=== PATIENT | female | born 1960 | race Caucasian/White ===

== ENCOUNTER 2024-04-06 01:35 | Emergency (ER) | payer OTHER, MEDICAID, SELFPAY ==
[2024-04-06 01:36] VITALS: BP 133/66; PULSE 95; RESP 18; TEMP 36.8; O2SAT 98; BMI 19.0
--- NOTE | 2024-04-06 01:58 | XR_ITS ---
Examination: Ultrasound soft tissue right axilla Exam date and time: April 06, 2024 0245 hours INDICATIONS: Palpable mass in the right axilla with redness swelling and pain beginning 3 months ago TECHNIQUE AND FINDINGS: High-resolution grayscale sonographic images right axilla Solid mass with surrounding edema in the right axilla 4.4 x 4.9 x 4.9 cm IMPRESSION: Large solid mass in the right axilla, differential would include enlarged abnormal lymph node versus abscess, clinical correlation advised
--- NOTE | 2024-04-06 02:01 | PD.EDRME ---
Rapid Medical Screening Exam RME Arrival date/time: 04/06/24 01:35 63 year old female present to ED for c/o of right armpit abscess/mass, worsen I have greeted and performed a focused initial assessment of this patient. A comprehensive ED assessment and evaluation of the patient, analysis of all test results, and completion of the medical decision making process will be conducted by additional ED providers. Chief Complaint: Skin/Abscess/Foreign Body Time Seen by Provider: 04/06/24 01:53 Vital signs: Vital Signs Temperature 98.2 F 04/06/24 01:36 Pulse Rate 95 04/06/24 01:36 Respiratory Rate 18 04/06/24 01:36 Blood Pressure 133/66 H 04/06/24 01:36 Pulse Oximetry (%) 98 04/06/24 01:36 Oxygen Delivery Method Room Air 04/06/24 01:36
[2024-04-06 02:46] LABS: Basophils % (Auto) 0 % (0-2.5); Eosinophils # (Auto) 0.2 Thou/mm3 (0.0-0.5); Eosinophils % (Auto) 2 % (0-10); Hematocrit 32.2 % (36.0-46.0); Hemoglobin 10.3 g/dL (12.0-16.0); Immature Granulocytes % (Auto) 0 % (0-0); Immature Granulocytes Auto 0.03 Thou/mm3 (0.00-0.00); Lymphocytes % (Auto) 12 % (10-50); Mean Corpuscular Hemoglobin 27.8 pg (25.0-35.0); Mean Corpuscular Volume 87 fL (80-100); Monocytes % (Auto) 12 % (0-12); Neutrophils # (Auto) 6.1 Thou/mm3 (1.8-7.7); Neutrophils % (Auto) 73 % (37-80); Nucleated Red Blood Cell % 0 /100 WBC (0); Platelet Count 295 Thou/mm3 (140-440); Red Blood Count 3.71 Miln/mm3 (4.00-5.20); White Blood Count 8.4 Thou/mm3 (3.6-11.0)
[2024-04-06 03:00] LABS: INR 1.1 (0.9-1.3); Prothrombin Time 12.4 Seconds (9.0-12.2)
[2024-04-06 03:04] LABS: Alanine Aminotransferase 114 U/L (10-49); Albumin, Serum 3.6 gm/dL (3.4-4.8); Albumin/Globulin Ratio 0.7 (1.2-2.2); Alkaline Phosphatase 95 U/L (46-116); Anion Gap 5 (7-16); Aspartate Amino Transferase 172 U/L (0-34); BUN/Creatinine Ratio 21 Ratio (12-20); Bilirubin,Total 0.6 mg/dL (0.3-1.2); Blood Urea Nitrogen 15 mg/dL (9-23); Calcium 9.1 mg/dL (8.3-10.6); Calcium (Corrected) 9.4 mg/dL (8.5-10.1); Carbon Dioxide 32.3 mMol/L (20.0-31.0); Chloride 97 mMol/L (98-107); Creatinine (Component) 0.7 mg/dL (0.6-1.3); Estimated Creatinine Clearance 71.3 mL/min (>60); Globulin 5.2 gm/dL (2.3-3.5); Glucose 108 mg/dL (74-106); Osmolality,Calculated 270 (275-295); Potassium 3.5 mMol/L (3.4-5.1); Sodium 134 mMol/L (136-145); Total Protein 8.8 gm/dL (5.7-8.2); eGFR > 60 See Note
--- NOTE | 2024-04-06 04:06 | PRELIM_ITS ---
Soft tissues of the right axilla ultrasound. April 06, 2024 at 0245 hours Clinical history: Right axilla mass/abscess. No prior study is available for comparison. Findings:There is a large complex hy poechoic mass, measuring 4.9 x 4.4 x 4.9 cm at the site of swelling/area of redness. There is no vas cularity around the mass. There is mild subcutaneous edema at the site of swelling. Impression:Large complex hypoechoic mass in the right axilla as described which may represent an abscess versus less likely necrotic lymph node. Recommend further evaluation as clinically indicated. Report Electronica lly Signed By: Ck Lee 04/06/2024 4:06:05 AM [EST]
[2024-04-06 06:23] VITALS: PULSE 81; RESP 18; TEMP 36.7; O2SAT 97
--- NOTE | 2024-04-06 07:01 | EDNOTE_ITS ---
ED Skin Abcess FB-RME/HPI General Chief complaint: Skin/Abscess/Foreign Body Stated complaint: ABCCESS IN RIGHT ARMPIT Time Seen by Provider: 04/06/24 01:53 Arrival date/time: 04/06/24 01:35 63-year-old female presents to the emergency department complaints of swelling to the right axilla patient reports she has had this ongoing for the last couple of weeks worse for the last 1 day patient reports no fever nausea or vomiting patient does report pain to the site Limitations: no limitations RME / HPI RME / HPI narrative: 04/06/24 01:35 63 year old female present to ED for c/o of right armpit abscess/mass, worsen I have greeted and performed a focused initial assessment of this patient. A comprehensive ED assessment and evaluation of the patient, analysis of all test results, and completion of the medical decision making process will be conducted by additional ED providers. Related Data Home Medications ?Medication ?Instructions ?Recorded ?Confirmed meloxicam 7.5 mg tablet 7.5 mg PO HS #0 tabs 09/20/16 11/24/18 baclofen 5 mg tablet 5 mg PO BID 11/21/18 11/24/18 Previous Rx's ?Medication ?Instructions ?Recorded hydrocodone 5 mg-acetaminophen 325 1 tab PO Q4H #10 tabs 11/24/18 mg tablet ([place]) clindamycin HCl 150 mg capsule 450 mg (3 x 150 mg) PO TID 7 days 04/06/24 #63 caps hydrocodone 5 mg-acetaminophen 325 1 tab PO BID PRN pain #6 tabs 04/06/24 mg tablet ibuprofen 600 mg tablet 600 mg PO Q6H #30 tabs 04/06/24 Allergies Allergy/AdvReac Type Severity Reaction Status Date / Time No Known Allergies Allergy Verified 11/21/18 08:43 Review of Systems Review of Systems Systems Reviewed: All systems reviewed, normal except as documented Constitutional Constitutional: Reports system reviewed and no additional complaints, except as documented, Denies fever(s) and Denies headache(s) Eyes Eyes: Reports system reviewed and no additional complaints, except as documented and Denies blurry vision ENT Ears, Nose, Mouth, and Throat: Reports system reviewed and no additional complaints, except as documented, Denies headache(s), Denies nasal congestion and Denies nasal discharge Cardiovascular Cardiovascular: Reports system reviewed and no additional complaints, except as documented, Denies chest pain and Denies dyspnea Respiratory Respiratory: Reports system reviewed and no additional complaints, except as documented, Denies chest congestion, Denies cough and Denies dyspnea Gastrointestinal Gastrointestinal: Reports system reviewed and no additional complaints, except as documented and Denies abdominal pain Integumentary/Breasts Skin/Breast: Reports system reviewed and no additional complaints, except as documented, Denies rash and Reports other (Abscess versus mass erythema swelling right axilla) Neurologic Neurologic: Reports system reviewed and no additional complaints, except as documented, Reports as per HPI and Denies headache(s) Past Medical History Past Medical History NEUROLOGIC: Negative Neurological Disorders CARDIAC: Negative Cardiac Disorders or Congestive Heart Failure RESPIRATORY: Negative Chronic Obstructive Pulmonary Disease (COPD) GENITOURINARY: Negative Renal Disease ENDOCRINE: Negative Diabetes Mellitus Type 1 or Diabetes Mellitus Type 2 Social History SMOKING STATUS: Current some day smoker ED Exam General Limitations: Present no limitations General appearance: Present alert and in no apparent distress Head Head exam: Present atraumatic Eye Eye exam: Present normal appearance, PERRL and EOMI ENT ENT exam: Present normal exam, normal oropharynx and mucous membranes moist Neck Neck exam: Present normal inspection, full ROM and trachea midline Chest Chest inspection: Present normal inspection and symmetric chest wall rise Respiratory Respiratory exam: Present normal lung sounds bilaterally Cardiovascular Cardiovascular exam: Present regular rate, normal rhythm and normal heart sounds Abdominal Exam Abdominal exam: Present soft and normal bowel sounds Extremities Exam Extremities exam: Present normal inspection and full ROM Back Exam Back exam: Present normal inspection and full ROM Neurological Exam Neurological exam: Present alert, oriented X3 and CN II-XII intact Psychiatric Psychiatric exam: Present normal affect and normal mood Skin Skin exam: Present warm and dry Expanded Skin Exam Body image: 2 1. 5 cm mass versus abscess right axilla Course Quality Measures none Orders Category Date Time Status US sft tissue upper back chest Stat Exams 04/06/24 01:58 Completed Blood Culture (Lab) Stat Lab 04/06/24 02:20 Received CBC Stat Lab 04/06/24 02:17 Completed CMP [Comprehensive Metabolic Panel] Stat Lab 04/06/24 02:17 Completed INR [Prothrombin Time with INR] Stat Lab 04/06/24 02:17 Completed Lactic Acid [Lactate (Lactic Acid)] Stat Lab 04/06/24 02:17 Completed Clindamycin Vial [Cleocin vial] Med 04/06/24 07:01 Discontinued 600 mg IM X1 ONE Vital Signs Vital signs: Vital Signs Temperature 98.2 F 04/06/24 01:36 Pulse Rate 95 04/06/24 01:36 Respiratory Rate 18 04/06/24 01:36 Blood Pressure 133/66 H 04/06/24 01:36 Pulse Oximetry (%) 98 04/06/24 01:36 Oxygen Delivery Method Room Air 04/06/24 01:36 O2 saturation 98% room air within normal limits Skin / Abscess / Foreign Body MDM Narrative MDM Narrative:: 63-year-old female presents to the emergency department complaints of swelling to the right axilla patient reports she has had this ongoing for the last couple of weeks worse for the last 1 day patient reports no fever nausea or vomiting patient does report pain to the site Lab work as well as ultrasound completed by my colleague Ultrasound per radiologist shows large complex hypoechoic mass in the right axilla which may represent an abscess versus less likely necrotic lymph node On exam patient has erythema and swelling to the right axilla there is no induration the area in question is hard and painful I did explain to the patient I would like to admit the patient to hospital for further evaluation of this abscess versus mass. patient reports that she cannot stay in the hospital she needs to go home and take care of her dog. Patient states she cannot stay! I explained to the patient the ramifications of not staying in the hospital I explained to the patient this could be cancer or large abscess which needs to be addressed Patient reports that she can return in a couple of days after getting her dog situated Patient given clindamycin here and given a course of antibiotics patient assures me that she will return in 2 days for reevaluation As patient afebrile nontoxic and appears patient discharged home with strict instructions to return in 2 days for reevaluation to return earlier if symptoms worsen Patient data External records reviewed:: [facility] previous records Clinical information provided by:: patient Social determinants that could affect healthcare access:: none Patient has the following chronic illnesses:: See history How is presenting disease/condition affected by chronic disease/condition?: u neffected by Evaluation data The following diagnostics were reviewed and interpreted by me:: lab results and radiology exam(s) Lab and/or radiology exams considered but not ordered:: Labs radiology obtained Interpretation Summary: Reviewed by me Medications / Prescriptions Medications or Prescriptions considered but not ordered:: Given Medication administrations:: Medication Administration History Discontinued Medications Clindamycin Phosphate (Clindamycin Phos Inj 150 Mg/Ml Vial 6 Ml) 600 mg IM X1 ONE Stop: 04/06/24 07:02 Last Admin: 04/06/24 07:14 Dose: 600 mg Documented By: RD Given Consultations Consultation(s) initiated? (list below): No Diagnosis Skin/Abscess Differential Diagnosis: abscess of skin or subcutaneous tissue and cellulitis Most likely diagnosis given after review of the tests above:: Abscess versus mass Admission Indicated Admission indicated?: not indicated Admission Request Was there a request for admission?: No Disposition Plan Disposition Plan: Discharge Discharge Attestation Discharge Attestation: The patient and all family members were given an opportunity to ask questions and understood the discharge instructions. Discharge instructions specifically effects, indications for sooner follow up or return to the emergency department, and the expected course of current diagnosis. Patient condition: Stable Discharge Plan Plan Patient Disposition: HOME (Self Care) Disposition Comment: Stable Prescriptions/Referrals Prescriptions/Med Rec: New hydrocodone-acetaminophen 5-325 mg tablet 1 tab PO BID MDD 10 PRN (Reason: pain) Qty: 6 0RF clindamycin HCl 150 mg capsule 450 mg PO TID 7 Days Qty: 63 0RF ibuprofen 600 mg tablet 600 mg PO Q6H Qty: 30 0RF No Action meloxicam 7.5 MG tablet 7.5 mg PO HS Qty: 0 baclofen 5 mg Tablet 5 mg PO BID hydrocodone-acetaminophen [[place]] 5-325 mg tablet 1 tab PO Q4H MDD 4 Qty: 10 0RF Rx Instructions: generic permissable Referrals: Octavio Shanks MD [Primary Care Provider] - 04/07/24 Problem List Clinical Impression: Mass of right axilla Patient/Caregiver Discharge Instructions Additional Instructions: Please return in 2 days for reevaluation for worsening symptoms or concerns return to the ER immediately Print Language: Mexican Stand Alone Forms: [facility] Award Info., Patient Portal Info Letter Attestation Attestation The patient was seen by the midlevel practitioner. I, the co-signing physician, was present during the entire ER visit. While I did not physically examine the patient, I was available for consultation as needed.
[2024-04-06] MEDS: CLINDAMYCIN PHOS INJ 150 MG/ML VIAL 6 ML 600 MG IM (07:14)
== END 2024-04-06 07:30 | disposition home or self-care (01) ==
PROVIDERS: Physician Assistant; Emergency Provider Emergency Medicine; PCP Family Medicine
DX: R22.31 Localized swelling, mass and lump, right upper limb (principal)
CPT/HCPCS: 36415; 76604; 80053; 83605; 85025; 85610; 87040; 96372; 99284; J0736

== ENCOUNTER 2024-04-10 01:32 | Inpatient (IN) | payer OTHER, MEDICARE, MEDICAID, SELFPAY ==
[2024-04-10] VITALS (19 sets, daily range): BP systolic 102–167; BP diastolic 52–97; PULSE 58–103; RESP 12–93; TEMP 36.1–37.2; O2SAT 94–100; BMI 19.0; BMI 20.9
--- NOTE | 2024-04-10 01:55 | PD.EDRME ---
Rapid Medical Screening Exam RME Arrival date/time: 04/10/24 01:32 63 year old female present to ED for c/o of mass of axilla, was supposed to be admit prior visit. I have greeted and performed a focused initial assessment of this patient. A comprehensive ED assessment and evaluation of the patient, analysis of all test results, and completion of the medical decision making process will be conducted by additional ED providers. Chief Complaint: General Adult/Misc Complain Time Seen by Provider: 04/10/24 01:44
[2024-04-10 02:16] LABS: Basophils % (Auto) 1 % (0-2.5); Eosinophils # (Auto) 0.3 Thou/mm3 (0.0-0.5); Eosinophils % (Auto) 4 % (0-10); Hematocrit 32.6 % (36.0-46.0); Hemoglobin 10.3 g/dL (12.0-16.0); Immature Granulocytes % (Auto) 0 % (0-0); Immature Granulocytes Auto 0.01 Thou/mm3 (0.00-0.00); Lymphocytes # (Auto) 0.9 Thou/mm3 (1.0-4.8); Lymphocytes % (Auto) 14 % (10-50); Mean Corpuscular HGB Conc 31.6 g/dl (31.0-37.0); Mean Corpuscular Hemoglobin 27.2 pg (25.0-35.0); Mean Corpuscular Volume 86 fL (80-100); Monocytes # (Auto) 0.5 Thou/mm3 (0.0-0.8); Monocytes % (Auto) 9 % (0-12); Neutrophils # (Auto) 4.6 Thou/mm3 (1.8-7.7); Neutrophils % (Auto) 73 % (37-80); Nucleated Red Blood Cell % 0 /100 WBC (0); Platelet Count 324 Thou/mm3 (140-440); RDW Standard Deviation 41.8 fL (36.4-46.3); Red Blood Count 3.79 Miln/mm3 (4.00-5.20); White Blood Count 6.3 Thou/mm3 (3.6-11.0)
[2024-04-10 02:28] LABS: Alanine Aminotransferase 122 U/L (10-49); Albumin, Serum 3.6 gm/dL (3.4-4.8); Albumin/Globulin Ratio 0.7 (1.2-2.2); Alkaline Phosphatase 99 U/L (46-116); Anion Gap 5 (7-16); Aspartate Amino Transferase 217 U/L (0-34); BUN/Creatinine Ratio 26 Ratio (12-20); Bilirubin,Total 0.5 mg/dL (0.3-1.2); Blood Urea Nitrogen 18 mg/dL (9-23); Calcium 8.9 mg/dL (8.3-10.6); Calcium (Corrected) 9.2 mg/dL (8.5-10.1); Carbon Dioxide 31.2 mMol/L (20.0-31.0); Chloride 100 mMol/L (98-107); Creatinine (Component) 0.7 mg/dL (0.6-1.3); Estimated Creatinine Clearance 71.3 mL/min (>60); Glucose 155 mg/dL (74-106); Osmolality,Calculated 276 (275-295); Potassium 3.7 mMol/L (3.4-5.1); Sodium 136 mMol/L (136-145); Total Protein 8.6 gm/dL (5.7-8.2); eGFR > 60 See Note
--- NOTE | 2024-04-10 05:32 | PD.EDADULT ---
ED General RME/HPI General Chief complaint: General Adult/Misc Complain Stated complaint: RIGHT AXILLA REDNESS AND SWELLING Time Seen by Provider: 04/10/24 01:44 Arrival date/time: 04/10/24 01:32 Limitations: no limitations RME / HPI RME / HPI narrative: 04/10/24 01:32 63 year old female present to ED for c/o of mass of axilla, was supposed to be admit prior visit. I have greeted and performed a focused initial assessment of this patient. A comprehensive ED assessment and evaluation of the patient, analysis of all test results, and completion of the medical decision making process will be conducted by additional ED providers. Dr. Power Patient has a orange sized frowth in the R armpit. It is warm to touch. Patient reports she had it for several months but recently became red and painful. Related Data Home Medications ?Medication ?Instructions ?Recorded ?Confirmed meloxicam 7.5 mg tablet 7.5 mg PO HS #0 tabs 09/20/16 11/24/18 baclofen 5 mg tablet 5 mg PO BID 11/21/18 11/24/18 Previous Rx's ?Medication ?Instructions ?Recorded hydrocodone 5 mg-acetaminophen 325 1 tab PO Q4H #10 tabs 11/24/18 mg tablet ([place]) clindamycin HCl 150 mg capsule 450 mg (3 x 150 mg) PO TID 7 days 04/06/24 #63 caps hydrocodone 5 mg-acetaminophen 325 1 tab PO BID PRN pain #6 tabs 04/06/24 mg tablet ibuprofen 600 mg tablet 600 mg PO Q6H #30 tabs 04/06/24 Allergies Allergy/AdvReac Type Severity Reaction Status Date / Time No Known Allergies Allergy Verified 11/21/18 08:43 Review of Systems Review of Systems Systems Reviewed: All systems reviewed, normal except as documented Past Medical History Past Medical History NEUROLOGIC: Negative Neurological Disorders CARDIAC: Negative Cardiac Disorders or Congestive Heart Failure RESPIRATORY: Negative Chronic Obstructive Pulmonary Disease (COPD) GENITOURINARY: Negative Renal Disease ENDOCRINE: Negative Diabetes Mellitus Type 1 or Diabetes Mellitus Type 2 Social History SMOKING STATUS: Current some day smoker ED Exam Narrative Physical exam: Rubbery textured, warm to touch about an orange sized mass with marked boarders in the T axilla, warm to touch, too large for bedside excision. General Limitations: Present no limitations General appearance: Present alert Head Head exam: Present atraumatic Eye Eye exam: Present normal appearance Neck Neck exam: Present normal inspection Respiratory Respiratory exam: Present normal lung sounds bilaterally Cardiovascular Cardiovascular exam: Present regular rate and normal rhythm Abdominal Exam Abdominal exam: Present soft Course Quality Measures none Orders Category Date Time Status Admit to Inpatient Status Routine Admission 04/10/24 11:24 Active Patient Condition Routine Admission 04/10/24 11:24 Ordered Activity as Tolerated Routine Care 04/10/24 11:27 Ordered COVID-19 Screening Questionnaire NOW Care 04/10/24 10:15 Active Consent [Obtain Written Consent For:] .ONCE Care 04/10/24 10:21 Active Decision to Admit X1 Care 04/10/24 10:15 Completed NPO NOW Care 04/10/24 11:39 Completed Notify provider NEEDED Care 04/10/24 11:24 Active Basic Metabolic Panel AM DRAW Lab 04/11/24 05:00 Ordered Basic Metabolic Panel AM DRAW Lab 04/12/24 05:00 Ordered Basic Metabolic Panel AM DRAW Lab 04/13/24 05:00 Ordered Blood Culture (Lab) Stat Lab 04/10/24 15:30 Received CBC AM DRAW Lab 04/11/24 05:00 Ordered CBC AM DRAW Lab 04/12/24 05:00 Ordered CBC AM DRAW Lab 04/13/24 05:00 Ordered CBC Stat Lab 04/10/24 02:01 Completed CMP [Comprehensive Metabolic Panel] Stat Lab 04/10/24 02:01 Completed Partial Thromboplastin Time AM DRAW Lab 04/11/24 05:00 Ordered Prothrombin Time with INR AM DRAW Lab 04/11/24 05:00 Ordered Acetaminophen Tab [Tylenol Tab] Med 04/10/24 11:26 Active 650 mg PO Q6H PRN Enoxaparin [Lovenox] Med 04/11/24 09:00 Active 40 mg SC QDAY Morphine Inj Med 04/10/24 11:34 Active 1 mg IVP Q6HR PRN Morphine Inj [Morphine Sulf Inj] Med 04/10/24 11:26 Discontinued 1 mg IVP Q6HR PRN Ondansetron Inj [Zofran Inj] Med 04/10/24 11:26 Active 4 mg IV Q6H PRN cefTRIAXone/D5w 1gm IV premix [Rocephin/D5w 1gm IV Med 04/10/24 11:31 Active premix] 50 ml IV QDAY metroNIDAZOLE/NS 500 MG IVPB [Flagyl 500 mg IV] Med 04/10/24 11:31 Discontinued 500 mg in 100 ml IV Q8HR oxyCODONE/APAP 5/325 [Percocet 5/325] Med 04/10/24 11:26 Active 1 tab PO Q6H PRN Code Status Routine Oth 04/10/24 11:24 Ordered Oxygen Delivery PRN RT 04/10/24 11:28 Active Vital Signs Vital signs: Vital Signs Temperature 98.9 F 04/10/24 01:56 Pulse Rate 103 H 04/10/24 01:56 Respiratory Rate 18 04/10/24 01:56 Blood Pressure 136/71 H 04/10/24 01:56 Pulse Oximetry (%) 100 04/10/24 01:56 Oxygen Delivery Method Room Air 04/10/24 01:56 [facility] Patient data External records reviewed:: [facility] previous records Clinical information provided by:: patient Social determinants that could affect healthcare access:: none Patient has the following chronic illnesses:: none How is presenting disease/condition affected by chronic disease/condition?: no chronic disease Evaluation data The following diagnostics were reviewed and interpreted by me:: lab results Lab and/or radiology exams considered but not ordered:: none Interpretation Summary: see above Medications Medications considered but not ordered:: none Medication administrations:: Medication Administration History Acetaminophen (Acetaminophen 325 Mg Tablet) 650 mg PO Q6H PRN PRN Reason: Fever >101.5 Stop: 05/10/24 11:25 Enoxaparin Sodium (Enoxaparin Sod Inj 40 Mg/0.4 Ml Syringe) 40 mg SC QDAY [facility] Stop: 04/25/24 08:59 Ceftriaxone Sodium/Dextrose (Rocephin/D5w 1gm Iv Premix) 50 mls @ 100 mls/hr IV QDAY [facility] Stop: 04/17/24 11:30 Last Admin: 04/10/24 14:45 Dose: 100 mls/hr Documented By: EMPERATRIZ Vancomycin/Sodium Chloride (Vancomycin/Ns 1 Gm Ivpb) 200 mls @ 120 mls/hr IV Q12H [facility] Stop: 04/18/24 09:59 Morphine Sulfate (Morphine Sulf Inj 10 Mg/Ml Vial) 1 mg IVP Q6HR PRN PRN Reason: PAIN SCALE 7-10 (Severe Stop: 04/15/24 11:25 Ondansetron HCl (Ondansetron Inj 2 Mg/Ml Inj 2 Ml) 4 mg IV Q6H PRN; Protocol PRN Reason: NAUSEA OR VOMITING Stop: 05/10/24 11:25 Oxycodone/Acetaminophen (Oxycodone/Apap 5/325 Tablet) 1 tab PO Q6H PRN PRN Reason: PAIN SCALE 4-6 (Moderate Stop: 04/15/24 11:25 Pharmacy Consult (Vancomycin Pharmacy To Dose 1 Each Each) 1 each IV QDAY PRN PRN Reason: CONSULT Stop: 05/10/24 14:29 Discontinued Medications Bupivacaine HCl (Bupivacaine Mpf 0.5% 30 Ml Vial) Confirm Administered Dose 30 ml .ROUTE .STK-MED ONE Stop: 04/10/24 11:40 Cefazolin Sodium (Cefazolin Inj 1 Gm Vial) Confirm Administered Dose 2 gm .ROUTE .STK-MED ONE Stop: 04/10/24 12:34 Dexamethasone Sodium Phosphate (Dexamethasone Sod Phos Inj 10 Mg/Ml Vial) Confirm Administered Dose 10 mg .ROUTE .STK-MED ONE Stop: 04/10/24 11:46 Fentanyl Citrate (Fentanyl Cit Inj 50 Mcg/Ml Amp 2ml) Confirm Administered Dose 100 mcg .ROUTE .STK-MED ONE Stop: 04/10/24 11:46 Fentanyl Citrate (Fentanyl Cit Inj 50 Mcg/Ml Amp 2ml) Confirm Administered Dose 100 mcg .ROUTE .STK-MED ONE Stop: 04/10/24 13:07 Fentanyl Citrate (Fentanyl Cit Inj 50 Mcg/Ml Amp 2ml) 50 mcg IV Q5M PRN PRN Reason: PAIN SCALE 4-10(Mod-Sev Stop: 04/10/24 15:22 Glycopyrrolate (Glycopyrrolate Inj 0.2 Mg/Ml Vial 5 Ml) Confirm Administered Dose 1 mg .ROUTE .STK-MED ONE Stop: 04/10/24 12:52 Hydralazine HCl (Hydralazine Inj 20 Mg/Ml Vial) 5 mg IV Q20M PRN PRN Reason: SEE COMMENTS Stop: 04/10/24 15:22 Metronidazole (Flagyl 500 Mg Iv) 500 mg in 100 mls @ 200 mls/hr IV Q8HR [facility] Stop: 04/17/24 11:30 Last Admin: 04/10/24 14:58 Dose: Not Given Documented By: EMPERATRIZ Non-Admin Reason: Discontinued Vancomycin HCl/Dextrose (Vancomycin/D5w 1,250 Mg Ivpb) 250 mls @ 120 mls/hr IV X1 ONE Stop: 04/10/24 17:04 Last Admin: 04/10/24 15:39 Dose: 120 mls/hr Documented By: EMPERATRIZ Ketorolac Tromethamine (Ketorolac Inj 30 Mg/Ml Vial) Confirm Administered Dose 30 mg .ROUTE .STK-MED ONE Stop: 04/10/24 13:15 Lidocaine HCl (Lidocaine Inj Pf 2% 2 Ml Vial) Confirm Administered Dose 2 ml .ROUTE .STK-MED ONE Stop: 04/10/24 11:52 Metoclopramide HCl (Metoclopramide Inj 5 Mg/Ml Vial 2 Ml) Confirm Administered Dose 10 mg .ROUTE .STK-MED ONE Stop: 04/10/24 11:46 Metoprolol Tartrate (Metoprolol Tartrate Inj 1 Mg/Ml Amp 5 Ml) 1 mg IVP Q5M PRN PRN Reason: TACHYCARDIA Stop: 04/10/24 15:22 Morphine Sulfate (Morphine Sulf Inj 4 Mg/Ml Vial) 1 mg IVP Q6HR PRN PRN Reason: PAIN SCALE 7-10 (Severe Stop: 04/15/24 11:25 Morphine Sulfate (Morphine Sulf Inj 10 Mg/Ml Vial) 2 mg IVP Q10M PRN PRN Reason: PAIN SCALE 4-10(Mod-Sev Stop: 04/10/24 15:22 Last Admin: 04/10/24 13:44 Dose: 2 mg Documented By: DAKOTA Neostigmine Methylsulfate (Neostigmine Inj 1:1000 10 Ml Vial) Confirm Administered Dose 10 ml .ROUTE .STK-MED ONE Stop: 04/10/24 12:52 Phenylephrine HCl (Phenylephrine Inj 10 Mg/Ml Vial) Confirm Administered Dose 10 mg .ROUTE .STK-MED ONE Stop: 04/10/24 11:47 Promethazine HCl (Promethazine Inj 25 Mg/Ml Vial) 12.5 mg IM X1 PRN PRN Reason: NAUSEA Stop: 04/10/24 15:35 Propofol (Propofol Inj 10 Mg/Ml Vial 20 Ml) Confirm Administered Dose 200 mg IV .STK-MED ONE Stop: 04/10/24 11:46 Rocuronium [place] (Rocuronium Inj 10 Mg/Ml Vial 10 Ml) Confirm Administered Dose 100 mg .ROUTE .STK-MED ONE Stop: 04/10/24 11:46 see above Consultations Consultation(s) initiated? (list below): Yes Consultation #1 (Physician, Specialty, Details): Patient was seen but surgeon Dr. Emmanuel during consult, states she will take the patient to surgery and to further speak with hospitalist Time: 08:33 Consultation #2 (Physician, Specialty, Details): discussed with hospitalist Dr. Guan regarding the patients current status and results, agrees to admission Time: 10:40 Diagnosis Differential Diagnosis ED Complaint MDM: malignency vs abscess. Most likely diagnosis given after review of the tests above:: axillary mass Admission Indicated Admission indicated?: indicated Explain why admission is indicated or not indicated:: see above Admission Request Was there a request for admission?: Yes Admission Attestation Admission request attestation: Discussed case with [] from Hospitalist service regarding admission. Discussed patients ED course, exam findings, labs, and radiology results. The Hospitalist [agrees,declines] to accept the patient for admission. Disposition Plan Disposition Plan: Admit Medical Decision Making Differential Diagnosis Differential Diagnosis: malignency vs abscess. Lab Data 04/10/24 02:01 04/10/24 02:01 Labs: Lab Results 04/10/24 Range/Units 02:01 WBC 6.3 (3.6-11.0) Thou/mm3 RBC 3.79 L (4.00-5.20) Miln/mm3 Hgb 10.3 L (12.0-16.0) g/dL Hct 32.6 L (36.0-46.0) % MCV 86 (80-100) fL MCH 27.2 (25.0-35.0) pg MCHC 31.6 (31.0-37.0) g/dl RDW Std Deviation 41.8 (36.4-46.3) fL Plt Count 324 (140-440) Thou/mm3 Neut % (Auto) 73 (37-80) % Lymph % (Auto) 14 (10-50) % [place] % (Auto) 9 (0-12) % Eos % (Auto) 4 (0-10) % Baso % (Auto) 1 (0-2.5) % Neut # (Auto) 4.6 (1.8-7.7) Thou/mm3 Lymph # (Auto) 0.9 L (1.0-4.8) Thou/mm3 [place] # (Auto) 0.5 (0.0-0.8) Thou/mm3 Eos # (Auto) 0.3 (0.0-0.5) Thou/mm3 Baso # (Auto) 0.0 (0.0-0.2) Thou/mm3 Immature Gran # (Auto) 0.01 H (0.00-0.00) Thou/mm3 Absolute Nucleated RBC 0.00 (0.00-0.00) Thou/mm3 Immature Gran % 0 (0-0) % Nucleated RBC % 0 (0) /100 WBC Sodium 136 (136-145) mMol/L Potassium 3.7 (3.4-5.1) mMol/L Chloride 100 (98-107) mMol/L Carbon Dioxide 31.2 H (20.0-31.0) mMol/L Anion Gap 5 L (7-16) BUN 18 (9-23) mg/dL Creatinine 0.7 (0.6-1.3) mg/dL Estim Creat Clear Calc 71.3 (>60) mL/min eGFR > 60 (60 - ) See Note BUN/Creatinine Ratio 26 H (12-20) Ratio Glucose 155 H (74-106) mg/dL Calculated Osmolality 276 (275-295) Calcium 8.9 (8.3-10.6) mg/dL Corrected Calcium 9.2 (8.5-10.1) mg/dL Total Bilirubin 0.5 (0.3-1.2) mg/dL AST 217 H (0-34) U/L ALT 122 H (10-49) U/L Alkaline Phosphatase 99 (46-116) U/L Total Protein 8.6 H (5.7-8.2) gm/dL Albumin 3.6 (3.4-4.8) gm/dL Globulin 5.0 H (2.3-3.5) gm/dL Albumin/Globulin Ratio 0.7 L (1.2-2.2) HIV 1&2 Antibody Rapid Non-Reactive Discharge Plan Plan Patient Disposition: Admit Acute Care w/in Hospital Patient condition on transfer: Stable Problem List Clinical Impression: Axillary mass
--- NOTE | 2024-04-10 10:18 | PD.SURCONS ---
HPI Consult details History of present illness: 63F with history of pancreatitis, Hep C presenting with right axillary mass. Pt reports the lesion has been present for several weeks and has become more firm and attached, she denies any drainage. She states she feels generally unwell with malaise and unintentional weight loss. Pt presented to ER a few days ago and left AMA but US at the time showed abscess vs mass up to 4.9cm PMH: Hep C, pancreatitis PSHx: Csection Meds: denies Allergies: NKDA Social hx: reports smoking 1-2 cigarettes daily Family hx: sister had breast CA, pt states her last mammogram was awhile ago Review of Systems Review of Systems ROS Unobtainable: All systems reviewed & no additional complaints except as documented Meds Home Medications and Allergies Home Medications ?Medication ?Instructions ?Recorded ?Confirmed ?Type meloxicam 7.5 mg tablet 7.5 mg PO HS #0 tabs 09/20/16 11/24/18 History baclofen 5 mg tablet 5 mg PO BID 11/21/18 11/24/18 History Allergies Allergy/AdvReac Type Severity Reaction Status Date / Time No Known Allergies Allergy Verified 11/21/18 08:43 Exam Vital Signs Temp Pulse Resp BP Pulse Ox O2 Del Method 98.3 F 78 18 102/52 L 97 Room Air 04/10/24 08:18 04/10/24 08:18 04/10/24 08:18 04/10/24 08:18 04/10/24 08:18 04/10/24 08:18 Constitutional Constitutional: no acute distress Routine Chest/Breast/Axilla Exam Comments: right axilla with large, soft mass which is not fluctuant, mildly tender and erythematous Routine Respiratory Exam Respiratory: Present no resp distress Results Results: Laboratory Laboratory results: results reviewed Results: Imaging Imaging narrative: US reviewed Assessment & Plan Plan 63F with HCV presenting with several-week history of R axillary mass vs abscess. I explained it does not feel like an abscess, could represent a malignancy but would need tissue diagnosis. Pt expressed understanding and is eager to proceed
--- NOTE | 2024-04-10 12:06 | XR_ITS ---
Examination: AP chest single view Technique: AP portable semiupright chest single view Exam date and time: April 10, 2024 1559 hrs. Comparison September 21, 2016 Indications: Postop abscess right chest Findings: Normal heart size Moderate vascular congestion No lobar pneumonia or pulmonary edema Impression: Moderate vascular congestion
--- NOTE | 2024-04-10 12:10 | PC.NURSE ---
Pt to OR with Varinder ANTONY
--- NOTE | 2024-04-10 12:11 | XR_ITS ---
Examination: Duplex scan of the upper extremity, unilateral right complete Date and time of exam: April 10, 2024 1613 hrs. Indications: Right arm swelling 3 months, history right axillary abscess post surgery today Technique: Duplex scan of the extremity veins using B-mode/grayscale imaging and Doppler spectral analysis and color flow Attention is directed to internal echogenicity, compression and augmentation involving these veins, color flow assessment, spectral analysis Findings: Major deep venous structures in the extremity demonstrate normal course and caliber. There is no evidence of deep vein thrombosis. Normal color flow and spectral analysis Impression: Negative for DVT..
--- NOTE | 2024-04-10 12:12 | PD.RESHP ---
Documentation for date of: 04/10/24 [facility] History of Present Illness Chief complaint: right armpit mass History of present illness: Mimi Asif is 63 yr female with PMH of pancreatitis, history of alcohol use, hepatitis C, and polysubstance drug use disorder who presented to ED today due to worsening right armpit pain and enlarging mass. Patient previously been to the emergency department on 04/06 with same symptoms. It was advised that she should stay for further workup and possible biopsy however she decided to leave to be home for Thanksgiving stating that she would come back. Patient was discharged on clindamycin. Today pain and swelling has decreased since past few days. Now pain is 6/10, no tingling, no numbness. Endorses having few episodes of low-grade fever, night sweats, and unintentional weight loss. Mammogram was done couple years ago with no abnormal findings. In addition to the antibiotics patient has been using ice and silver sulfadiazine with minor relief. Few weeks ago, her dog had scratched the right hand. In ED, vitals unremarkable. Labs significant for anemia Hb 10.3, sodium 136, potassium 3.7, creatinine 0.7, transaminitis AST 217?ALT 122, normal bilirubin 0.5. Diagnostic imaging: Ultrasound upper extremity from 04/06 showed a large solid mass in the right axilla. Dr. Emmanuel was consulted and patient admitted for workup of right axillary mass. PMH: as noted above FamHx: Sister of breast cancer, family history of CAD and hypertension. Social: Extensive smoking history used to smoke 1 pack/day for 10 years, now smokes 1 to 2 cigarettes/day. States that she drinks only socially. Active drug use disorder with heroin and with last use being 1 week ago. No IV drug use. Review of Systems Constitutional Constitutional: Reports system reviewed and no additional complaints, except as documented Exam Vital Signs Temp Pulse Resp BP Pulse Ox O2 Del Method 98.8 F 71 18 119/58 L 98 Room Air 04/10/24 10:50 04/10/24 10:50 04/10/24 10:50 04/10/24 10:50 04/10/24 10:50 04/10/24 10:50 Narrative Exam General: Alert and oriented x3. No acute distress, cooperative, unkept, poor hygeine Eyes: Pupils are equal and reactive to light bilaterally HEENT: Atraumatic, normocephalic. No JVD noted. Mucosa dry, missing a lot of teeth. Cardiovascular: Normal S1 and S2. Regular rate and rhythm. +3 pitting edema Respiratory: expiratory wheezing bilaterally Abdomen: Soft, nontender, not distended, normal bowel sounds. Skin: Warm to touch, dry, rashes/pustules notes throughout UE/LE. Venous stasis dermatitis. Musculoskeletal: No gross injuries. Able to move all 4 extremities, right extremity warm/erythematic/swollen, enlarged right axillary mass, tender, non fluctuant Neuro: Alert and oriented x3. No focal neuro deficits. Psych: Normal affect and mood Results: Labs 04/10/24 02:01 04/10/24 02:01 Labs: Short CBC 04/10/24 Range/Units 02:01 WBC 6.3 (3.6-11.0) Thou/mm3 Hgb 10.3 L (12.0-16.0) g/dL Hct 32.6 L (36.0-46.0) % Plt Count 324 (140-440) Thou/mm3 BMP 04/10/24 02:01 Sodium 136 Potassium 3.7 Chloride 100 Carbon Dioxide 31.2 H BUN 18 Creatinine 0.7 Glucose 155 H Calcium 8.9 Liver Function 04/10/24 Range/Units 02:01 Total Bilirubin 0.5 (0.3-1.2) mg/dL AST 217 H (0-34) U/L ALT 122 H (10-49) U/L Alkaline Phosphatase 99 (46-116) U/L Albumin 3.6 (3.4-4.8) gm/dL Quality Measures Quality Measures none Medications Home Medications and Allergies Home Medications ?Medication ?Instructions ?Recorded ?Confirmed ?Type meloxicam 7.5 mg tablet 7.5 mg PO HS #0 tabs 09/20/16 11/24/18 History baclofen 5 mg tablet 5 mg PO BID 11/21/18 11/24/18 History Allergies Allergy/AdvReac Type Severity Reaction Status Date / Time No Known Allergies Allergy Verified 11/21/18 08:43 Visit Medications Acetaminophen (Acetaminophen 325 Mg Tablet) 650 mg PO Q6H PRN PRN Reason: Fever >101.5 Stop: 05/10/24 11:25 Enoxaparin Sodium (Enoxaparin Sod Inj 40 Mg/0.4 Ml Syringe) 40 mg SC QDAY [facility] Stop: 04/25/24 08:59 Ceftriaxone Sodium/Dextrose (Rocephin/D5w 1gm Iv Premix) 50 mls @ 100 mls/hr IV QDAY ALEXANDREA Stop: 04/17/24 11:30 Metronidazole (Flagyl 500 Mg Iv) 500 mg in 100 mls @ 200 mls/hr IV Q8HR ALEXANDREA Stop: 04/17/24 11:30 Morphine Sulfate (Morphine Sulf Inj 10 Mg/Ml Vial) 1 mg IVP Q6HR PRN PRN Reason: PAIN SCALE 7-10 (Severe Stop: 04/15/24 11:25 Ondansetron HCl (Ondansetron Inj 2 Mg/Ml Inj 2 Ml) 4 mg IV Q6H PRN; Protocol PRN Reason: NAUSEA OR VOMITING Stop: 05/10/24 11:25 Oxycodone/Acetaminophen (Oxycodone/Apap 5/325 Tablet) 1 tab PO Q6H PRN PRN Reason: PAIN SCALE 4-6 (Moderate Stop: 04/15/24 11:25 Discontinued Medications Morphine Sulfate (Morphine Sulf Inj 4 Mg/Ml Vial) 1 mg IVP Q6HR PRN PRN Reason: PAIN SCALE 7-10 (Severe Stop: 04/15/24 11:25 Assessment & Plan Plan Mimi Asif is 63 yr female with PMH of pancreatitis, history of alcohol use, hepatitis C, and polysubstance drug use disorder who presented to ED today due to worsening right armpit pain and enlarging mass. Patient previously been to the emergency department on 04/06 with same symptoms. Left AMA stating she would come back. Was discharged on clindamycin. Now pain is 6/10, no tingling, no numbness. Endorses having few episodes of low-grade fever, night sweats, and unintentional weight loss. Dr. Emmanuel was consulted and patient admitted for workup of right axillary mass. #Right axillary mass Mass has been present and enlargening since past 3 weeks. Patient was recently discharged on 04/06 with course of clindamycin. Since then swelling and pain have slightly improved. Patient's entire right arm is swollen, red. Right axillary mass also tender, erythematous, nonfluctuant. No numbness or tingling. Ddx: Abscess vs cancer vs DVT vs infection (HIV, bartonella, cooci, EBV) vs sarcoidosis -Dr. Emmanuel was consulted and planning for biopsy/I&D -start ceftriaxone and metronidazole -RUE u/s pending to r/o DVT -HIV test pending -blood cultures pending -chest xray pending -biopsy and culture drainage #Hx Polysubstance drug abuse disorder Uses heroin and speed with last use one week ago. Denies IV drug use. -Utox pending -weight loss counselor patient on drug use -consult medical social worker #Transaminitis On admission AST 217 and ALT 122. No abdominal pain on physical exam. Maybe due to hx of hep C. -abdominal u/s pending -continue to monitor #Hx Hep C -Hepatitis panel pending Health maintenance: Dispo: right axillary mass, med surg DVT prophylaxis: Subcu heparin CODE STATUS: Full code Diet: Regular The patient's management plan was discussed with my attending physician Dr. Guan and Dr. Celine Ventura, PGY-1 Attending Provider Attestation/Addendum I have discussed and was present for the essential components of the history, physical examination, diagnosis, and treatment plan with the resident. I agree with the patient's care as documented by the resident and amended herein by me. Denzel Guan DO. In short and short, patient is a 63-year-old female with a significant past medical history of pancreatitis, substance abuse, alcohol abuse, hepatitis C untreated who presented to the ED for worsening right axillary mass. Patient was initially started on a course of clindamycin on 04/06 however she states the mass is worsening. General surgery was consulted in the ED for biopsy. The patient also looked disheveled, she had lower extremity erythema, edema and what appeared to be numerous skin lesions that almost look like insect bites on various portions of her body. She did state that her house is filthy that she lives in and has black mold and she is looking to move from the residence. She also states she has a dog but does not know if it has fleas. Patient subsequently admitted for worsening right axillary mass. Patient also endorses active drug use with heroin and alcohol use. CURRENT MEDICATIONS: Ceftriaxone Vancomycin Lovenox 40 mg daily Significant Labs/Imaging/Micro In the ED, pulse was 103, the patient was afebrile, on room air, SpO2 100%, significant labs including normal WBC, hemoglobin of 10.3 with an MCV of 86, CMP demonstrating transaminitis with an AST of 217, ALT 122, normal alk phos, T. bili 0.5. Hepatitis panel ordered and pending, HIV negative. A right axillary soft tissue ultrasound performed on 04/06 demonstrated a large solid mass in the right axilla, differentials include an abnormal lymph node versus abscess. ASSESSMENT: #Right axillary mass with surrounding edema measuring 4.4 x 4.9 x 4.9 cm with associated right arm edema ?General surgery consulted for biopsy, appreciate recommendations, will follow-up pathology results -Ceftriaxone and vancomycin started -Blood cultures ordered and pending #Lower extremity edema, erythema, differentials include lower extremity edema possibly from diastolic versus systolic heart failure in setting of drug use, versus venous insufficiency versus cellulitis -start IV vancomycin and ceftriaxone -Echo ordered -CXR ordered -Right upper extremity ultrasound ordered for possible DVT -A1c/TSH ordered #Elevated liver enzymes, hepatocellular pattern possibly from cirrhosis secondary to alcohol abuse -Right upper quadrant ultrasound ordered -CTM, avoid hepatotoxic medications #Normocytic anemia -Iron panel ordered Chronic problems: #Polysubstance abuse to include heroin and alcohol #Hepatitis C, untreated -Hepatitis panel ordered, CIWA protocol likely not necessary as patient's last drink was recent Although this document has been carefully reviewed, there may still be some phonetic and other typographical errors. These errors are purely grammatical due to imperfections in the software program and should not be construed in any way to compromise the substance of the patient's medical care during this visit.
--- NOTE | 2024-04-10 12:15 | XR_ITS ---
Examination: Abdomen sonogram, Limited Date and time of exam: April 10, 2024 1624 hrs. Indications: Elevated liver function tests on laboratory examination today Technique: Real-time wu scale transabdominal sonographic images of the upper abdomen obtained. Findings: Negative for gallstones Negative for gallbladder wall edema Common bile duct 6 mm no stones Pancreatic head 1.6 cm Soft tissue density posterior to the pancreas 3.5 x 2.6 cm Liver fatty infiltration left lobe liver lesion 19 x 13 x 19 mm, mild free fluid in the abdomen Normal hepatopedal portal venous flow Patent IVC Impression: Soft tissue mass posterior to the pancreas 3.5 x 2.6 cm Small hyperdense lesion in the liver Recommend CT scan abdomen pelvis post intravenous contrast follow-up
--- NOTE | 2024-04-10 12:18 | PC.NURSE ---
Report given to Meredith
--- NOTE | 2024-04-10 13:06 | SUR.PHASEI ---
Arrived to recovery ba 1 via [facility]. Report received from Acosta ANTONY and Dr. Castellano. Resting with eyes closed but moaning in pain. Dr. Castellano at bedside medicating with Fentanyl. Responding to commands and questions appropriately. Dressing to right axilla with moderate red drainage, area of drainage marked. No s/o distress.
--- NOTE | 2024-04-10 13:06 | SUR.PHASEI ---
RUE +CMS. 2+pitting edema noted to RUE.
--- NOTE | 2024-04-10 13:11 | PD.SUROPNT ---
Date of Procedure 04/10/24 Pre Op Diagnosis Right axillary mass Post Op Diagnosis Same Procedure Incision and drainage, incisional biopsy Findings Right axillary mass containing approximately 20 cc pus, with some fibrinous tissue Procedure Description After discussion of risk and benefits, patient was brought to the operating room, SCDs were placed and general anesthesia was induced. She was prepped and draped in the usual sterile fashion and received preoperative antibiotics. After timeout the mass was aspirated with an 18-gauge needle and a small amount of pus was returned. After that transverse incision was made which was approximately 2 cm with a 15 blade. The wound was probed with a finger and approximately 20 cc of pus was expressed from which a culture was taken. The wound was irrigated and there was some fibrinous tissue which was excised with scissors for biopsy. Hemostasis was achieved with electrocautery and reinforced with Surgicel. The wound was packed with a moistened Kerlix and covered with gauze. Patient was awoken and brought to PACU in stable condition Pathology / specimen Other (Right axillary mass tissue for pathology, pus for wound culture) Estimated Blood Loss 25 Surgeon Briseyda Emmanuel MD Surgical Staff Operation Date: 04/10/24 12:15 <No data on this case meets the specified criteria>
--- NOTE | 2024-04-10 13:35 | SUR.PHASEI ---
Dr. Castellano at bedside to asses pt. Resting with eyes closed at this time. No s/o distress or discomfort.
[2024-04-10] MEDS: MORPHINE SULF INJ 10 MG/ML VIAL 2 MG IVP (13:44)
--- NOTE | 2024-04-10 13:50 | SUR.PHASEI ---
Report given to Meredith ANTONY med/surg. Dressing to right axilla changed due to light red drainage. Packing intact. Applied new fluffs and secured with medipore tape. Tolerated well. No s/o distress. States her pain is better than when she initially came out of surgery, 11/18. Taken to room 352 via gurney by [place].
[2024-04-10 14:08] LABS: HIV (1&2) Antibody Rapid Non-Reactive
--- NOTE | 2024-04-10 14:18 | PD.RESPRO ---
Documentation for date of: 04/10/24 Exam Vital Signs Temp Pulse Resp BP Pulse Ox O2 Del Method 97.0 F 67 15 141/88 H 95 Room Air 04/10/24 14:11 04/10/24 14:11 04/10/24 14:11 04/10/24 14:11 04/10/24 14:11 04/10/24 14:11 Objective Labs 04/10/24 02:01 04/10/24 02:01 Labs: Laboratory Results - last 24 hr 04/10/24 02:01 WBC 6.3 RBC 3.79 L Hgb 10.3 L Hct 32.6 L MCV 86 MCH 27.2 MCHC 31.6 RDW Std Deviation 41.8 Plt Count 324 Neut % (Auto) 73 Lymph % (Auto) 14 [place] % (Auto) 9 Eos % (Auto) 4 Baso % (Auto) 1 Neut # (Auto) 4.6 Lymph # (Auto) 0.[address] [place] # (Auto) 0.5 Eos # (Auto) 0.3 Baso # (Auto) 0.0 Immature Gran # (Auto) 0.01 H Absolute Nucleated RBC 0.00 Immature Gran % 0 Nucleated RBC % 0 Sodium 136 Potassium 3.7 Chloride 100 Carbon Dioxide 31.2 H Anion Gap 5 L BUN 18 Creatinine 0.7 Estim Creat Clear Calc 71.3 eGFR > 60 BUN/Creatinine Ratio 26 H Glucose 155 H Calculated Osmolality 276 Calcium 8.9 Corrected Calcium 9.2 Total Bilirubin 0.5 AST 217 H ALT 122 H Alkaline Phosphatase 99 Total Protein 8.6 H Albumin 3.6 Globulin 5.0 H Albumin/Globulin Ratio 0.7 L HIV 1&2 Antibody Rapid Non-Reactive Quality Measures Quality Measures none Assessment & Plan Assessment Current Active Medications: Generic Name Dose Route Start Last Admin Trade Name Freq PRN Reason Stop Dose Admin Acetaminophen 650 mg 04/10/24 11:26 Acetaminophen 325 Mg Tablet PO 05/10/24 11:25 Q6H PRN Fever >101.5 Enoxaparin Sodium 40 mg 04/11/24 09:00 Enoxaparin Sod Inj 40 Mg/0.4 Ml Syringe SC 04/25/24 08:59 QDAY ALEXANDREA Ceftriaxone Sodium/Dextrose 50 mls @ 100 mls/hr 04/10/24 11:31 Rocephin/D5w 1gm Iv Premix IV 04/17/24 11:30 QDAY ALEXANDREA Metronidazole 500 mg in 100 mls @ 200 mls/hr 04/10/24 11:31 Flagyl 500 Mg Iv IV 04/17/24 11:30 Q8HR ALEXANDREA Morphine Sulfate 1 mg 04/10/24 11:34 Morphine Sulf Inj 10 Mg/Ml Vial IVP 04/15/24 11:25 Q6HR PRN PAIN SCALE 7-10 (Severe Ondansetron HCl 4 mg 04/10/24 11:26 Ondansetron Inj 2 Mg/Ml Inj 2 Ml IV 05/10/24 11:25 Q6H PRN NAUSEA OR VOMITING Protocol Oxycodone/Acetaminophen 1 tab 04/10/24 11:26 Oxycodone/Apap 5/325 Tablet PO 04/15/24 11:25 Q6H PRN PAIN SCALE 4-6 (Moderate
[2024-04-10] MEDS: cefTRIAXone/D5w 1gm IV premix 50 ML IV (14:45)
[2024-04-10] MEDS: VANCOMYCIN/D5W 1,250 MG IVPB 250 ML 120 MG IV (15:39)
[2024-04-10 16:01] LABS: Glucose Estimated Average 103 mg/dL (80-131); Hemoglobin A1C 5.2 % Hgb (4.8-6.0)
[2024-04-10 16:25] LABS: Thyroid Stimulating Hormone 3.17 uIU/mL (0.55-4.78)
[2024-04-10 17:00] LABS: Total Iron Binding Capacity 215 mcg/dL (250-425)
[2024-04-10 18:08] LABS: Iron 35 mcg/dL (50-170); Percent Iron Saturation 16 % (20-55); Unsaturated Iron Binding 180 (225-295)
[2024-04-10 20:37] LABS: Amphetamine/Methamp Scrn,U Positive (Negative); Barbiturate Screen,Urine Negative (Negative); Benzodiazepines Screen,Urine Negative (Negative); Benzoylecgonine Screen, Ur Negative (Negative); Fentanyl Screen,Urine Positive (Negative); Opiate Screen,Urine Positive (Negative); THC Screen,Urine Negative (Negative)
[2024-04-10] MEDS: MORPHINE SULF INJ 10 MG/ML VIAL IVP (22:44)
[2024-04-11] VITALS (9 sets, daily range): BP systolic 95–145; BP diastolic 51–69; PULSE 63–84; RESP 16–98; TEMP 36.2–36.4; O2SAT 94–99
[2024-04-11 06:51] LABS: Anion Gap 6 (7-16); BUN/Creatinine Ratio 30 Ratio (12-20); Basophils % (Auto) 0 % (0-2.5); Blood Urea Nitrogen 18 mg/dL (9-23); Calcium 8.2 mg/dL (8.3-10.6); Carbon Dioxide 32.1 mMol/L (20.0-31.0); Chloride 99 mMol/L (98-107); Creatinine (Component) 0.6 mg/dL (0.6-1.3); Eosinophils % (Auto) 0 % (0-10); Estimated Creatinine Clearance 91.8 mL/min (>60); Glucose 178 mg/dL (74-106); Hematocrit 29.4 % (36.0-46.0); Hemoglobin 9.4 g/dL (12.0-16.0); Immature Granulocytes % (Auto) 0 % (0-0); Immature Granulocytes Auto 0.03 Thou/mm3 (0.00-0.00); Lymphocytes # (Auto) 0.7 Thou/mm3 (1.0-4.8); Lymphocytes % (Auto) 9 % (10-50); Mean Corpuscular Hemoglobin 27.3 pg (25.0-35.0); Mean Corpuscular Volume 86 fL (80-100); Monocytes # (Auto) 0.4 Thou/mm3 (0.0-0.8); Monocytes % (Auto) 6 % (0-12); Neutrophils # (Auto) 6.6 Thou/mm3 (1.8-7.7); Neutrophils % (Auto) 85 % (37-80); Nucleated Red Blood Cell % 0 /100 WBC (0); Osmolality,Calculated 279 (275-295); Platelet Count 305 Thou/mm3 (140-440); Potassium 3.6 mMol/L (3.4-5.1); Red Blood Count 3.44 Miln/mm3 (4.00-5.20); Sodium 137 mMol/L (136-145); White Blood Count 7.8 Thou/mm3 (3.6-11.0); eGFR > 60 See Note
[2024-04-11 07:00] LABS: INR 1.2 (0.9-1.3); Partial Thromboplastin Time 31.8 Seconds (22.0-36.0); Prothrombin Time 12.9 Seconds (9.0-12.2)
[2024-04-11] MEDS: oxyCODONE/APAP 5/325 TABLET 1 TAB PO ×2 (07:40→20:59)
[2024-04-11] MEDS: ENOXAPARIN SOD INJ 40 MG/0.4 ML SYRINGE SC (08:01)
[2024-04-11] MEDS: cefTRIAXone/D5w 1gm IV premix 50 ML IV (08:02)
[2024-04-11] MEDS: VIT B12/Vit C/FA (Nephrovite) TABLET 1 TAB PO (09:05)
[2024-04-11] MEDS: FERROUS SULF 325 MG TABLET PO (09:05)
[2024-04-11] MEDS: ZINC SULFATE 220 MG CAPSULE PO (09:05)
[2024-04-11] MEDS: VANCOMYCIN/NS 1 GM IVPB 200 ML IV ×2 (09:05→21:09)
[2024-04-11 10:15] LABS: Ferritin 84 ng/mL (7.3-270.7)
[2024-04-11] MEDS: MORPHINE SULF INJ 10 MG/ML VIAL IVP (12:33)
--- NOTE | 2024-04-11 13:13 | ESPR_ITS ---
Documentation for date of: 04/11/24 Subjective Subjective Interval history: Patient was seen and examined bedside. No acute overnight events. Complaining of mild pain at the site of incision and drainage, otherwise denies any complaints. Vitals are stable. On physical examination, bilateral lower extremity peripheral vascular changes with thickening of the skin and blackish discoloration is noted. On auscultation, systolic murmur heard best at the pulmonary area. Pus culture from the drainage site did not show any growth. Echo was ordered to see for any structural abnormalities. CT chest and abdomen was ordered to look for any solid masses. Exam Vital Signs Temp Pulse Resp BP Pulse Ox O2 Del Method 97.1 F 65 18 112/52 L 97 Room Air 04/11/24 12:00 04/11/24 12:00 04/11/24 12:00 04/11/24 12:00 04/11/24 12:00 04/11/24 12:00 Narrative Exam General: Awake and in no acute distress. HEENT: Normocephalic, atraumatic, mucous membranes moist. Heart: Regular rate and rhythm, ejection systolic murmur heard at pulmonary area. Lungs: Clear to auscultation with no wheezing or crackles. Abdomen: Soft, nondistended, nontender, positive bowel sounds. ?No guarding or rebound tenderness. Neurologic: Alert and oriented x3, no gross neurological deficit, and patient able to move all 4 extremities. Extremities: b/l peripheral vascular disease changes in both lower extremities. Skin: No rash or ecchymoses. Objective Labs 04/11/24 05:15 04/11/24 05:15 Labs: Laboratory Results - last 24 hr 04/10/24 04/10/24 04/10/24 02:01 15:35 19:55 WBC RBC Hgb Hct MCV MCH MCHC RDW Std Deviation Plt Count Neut % (Auto) Lymph % (Auto) [place] % (Auto) Eos % (Auto) Baso % (Auto) Neut # (Auto) Lymph # (Auto) [place] # (Auto) Eos # (Auto) Baso # (Auto) Immature Gran # (Auto) Absolute Nucleated RBC Immature Gran % Nucleated RBC % PT INR APTT Sodium Potassium Chloride Carbon Dioxide Anion Gap BUN Creatinine Estim Creat Clear Calc eGFR BUN/Creatinine Ratio Glucose Estimated Ave Glu mg/dL 103 Hemoglobin A1c 5.2 Calculated Osmolality Calcium Iron 35 L TIBC 215 L Iron Saturation 16 L Unsat Iron Binding 180 L Ferritin TSH 3.17 Urine Opiates Screen Positive A Urine Fentanyl Screen Positive A Ur Barbiturates Screen Negative U Amphetamin/Meth Scrn Positive A U Benzodiazepines Scrn Negative U Cocaine Metab Screen Negative U Marijuana (THC) Screen Negative HIV 1&2 Antibody Rapid Non-Reactive 04/11/24 05:15 WBC 7.8 RBC 3.44 L Hgb 9.4 L Hct 29.4 L MCV 86 MCH 27.3 MCHC 32.0 RDW Std Deviation 42.0 Plt Count 305 Neut % (Auto) 85 H Lymph % (Auto) 9 L [place] % (Auto) 6 Eos % (Auto) 0 Baso % (Auto) 0 Neut # (Auto) 6.6 Lymph # (Auto) 0.7 L [place] # (Auto) 0.4 Eos # (Auto) 0.0 Baso # (Auto) 0.0 Immature Gran # (Auto) 0.03 H Absolute Nucleated RBC 0.00 Immature Gran % 0 Nucleated RBC % 0 PT 12.9 H INR 1.2 APTT 31.8 Sodium 137 Potassium 3.6 Chloride 99 Carbon Dioxide 32.1 H Anion Gap 6 L BUN 18 Creatinine 0.6 Estim Creat Clear Calc 91.8 eGFR > 60 BUN/Creatinine Ratio 30 H Glucose [address] Glu mg/dL Hemoglobin A1c Calculated Osmolality 279 Calcium 8.2 L Iron TIBC Iron Saturation Unsat Iron Binding Ferritin 84 TSH Urine Opiates Screen Urine Fentanyl Screen Ur Barbiturates Screen U Amphetamin/Meth Scrn U Benzodiazepines Scrn U Cocaine Metab Screen U Marijuana (THC) Screen HIV 1&2 Antibody Rapid Quality Measures Quality Measures none Assessment & Plan Assessment Current Active Medications: Generic Name Dose Route Start Last Admin Trade Name Freq PRN Reason Stop Dose Admin Acetaminophen 650 mg 04/10/24 11:26 Acetaminophen 325 Mg Tablet PO 05/10/24 11:25 Q6H PRN Fever >101.5 Enoxaparin Sodium 40 mg 04/11/24 09:00 04/11/24 08:01 Enoxaparin Sod Inj 40 Mg/0.4 Ml Syringe SC 04/25/24 08:59 40 mg QDAY ALEXANDREA Administration Ferrous Sulfate 325 mg 04/11/24 08:15 04/11/24 09:05 Ferrous Sulf 325 Mg Tablet PO 05/11/24 08:14 325 mg Q48H ALEXANDREA Administration Ceftriaxone Sodium/Dextrose 50 mls @ 100 mls/hr 04/10/24 11:31 04/11/24 08:02 Rocephin/D5w 1gm Iv Premix IV 04/17/24 11:30 100 mls/hr QDAY ALEXANDREA Administration Vancomycin/Sodium Chloride 200 mls @ 120 mls/hr 04/11/24 10:00 04/11/24 09:05 Vancomycin/Ns 1 Gm Ivpb IV 04/18/24 09:59 120 mls/hr Q12H ALEXANDREA Administration Morphine Sulfate 1 mg 04/10/24 11:34 04/11/24 12:33 Morphine Sulf Inj 10 Mg/Ml Vial IVP 04/15/24 11:25 1 mg Q6HR PRN Administration PAIN SCALE 7-10 (Severe Ondansetron HCl 4 mg 04/10/24 11:26 Ondansetron Inj 2 Mg/Ml Inj 2 Ml IV 05/10/24 11:25 Q6H PRN NAUSEA OR VOMITING Protocol Oxycodone/Acetaminophen 1 tab 04/10/24 11:26 04/11/24 07:40 Oxycodone/Apap 5/325 Tablet PO 04/15/24 11:25 1 tab Q6H PRN Administration PAIN SCALE 4-6 (Moderate Pharmacy Consult 1 each 04/10/24 14:30 Vancomycin Pharmacy To Dose 1 Each Each IV 05/10/24 14:29 QDAY PRN CONSULT Vitamin B Complex/Vit C/Folic Acid 1 tab 04/11/24 09:00 04/11/24 09:05 Vit B12/Vit C/Fa (Nephrovite) Tablet PO 05/11/24 08:59 1 tab QDAY ALEXANDREA Administration Zinc Sulfate 220 mg 04/11/24 09:00 04/11/24 09:05 Zinc Sulfate 220 Mg Capsule PO 05/11/24 08:59 220 mg QDAY ALEXANDREA Administration Plan Mimi Asif is 63 yr female with PMH of pancreatitis, history of alcohol use, hepatitis C, and polysubstance drug use disorder who presented to ED today due to worsening right armpit pain and enlarging mass. Patient previously been to the emergency department on 04/06 with same symptoms. Left AMA stating she would come back. Was discharged on clindamycin. Now pain is 6/10, no tingling, no numbness. Endorses having few episodes of low-grade fever, night sweats, and unintentional weight loss. Dr. Emmanuel was consulted and patient admitted for workup of right axillary mass. #Right axillary mass Mass has been present and enlargening since past 3 weeks. Patient was recently discharged on 04/06 with course of clindamycin. Since then swelling and pain have slightly improved. Patient's entire right arm is swollen, red. Right axillary mass also tender, erythematous, nonfluctuant. No numbness or tingling. Ddx: Abscess vs malignancy vs infection -Dr. Emmanuel was consulted - biopsy/I&D done, 20cc pus was drained and sent for culture -ceftriaxone and vancomycin (04/10 - present -RUE u/s - DVT Ruled out -HIV test - negative -blood cultures - negative -biopsy and culture drainage done, pending results -CT chest and abdomen was ordered #Hx Polysubstance drug abuse disorder Uses heroin and speed with last use one week ago. Denies IV drug use. -Utox - positive for opiates, fentanyl, meth -auto travel counselor patient on drug use -consult social work assistant #Transaminitis On admission AST 217 and ALT 122. No abdominal pain on physical exam. Maybe due to hx of hep C. -CT chest and abdomen was ordered -continue to monitor #Hx Hep C -Hepatitis panel pending Health maintenance: Dispo: right axillary mass, med surg DVT prophylaxis: Subcu heparin CODE STATUS: Full code Diet: Regular Patient plan of care was discussed with the attending physician, Dr. David Catalan, PGY1 Attending Provider Attestation/Addendum I, Sue Hernandez DO, attest that I was physically present for the dai portions of the service and evaluated the patient with the resident and I reviewed and discussed the case with the resident and agree with the resident's findings and plans of care as documented above Patient seen and evaluated this AM. She reports some pain at incision site. Review of abdominal ultrasound shows concern for possible mass. Patient admits to using heroin and amphetamine. She denies alcohol use otherwise. Will obtain CT chest/abd/ pelvis. Patient currently denies any chest pain. Will f/u with results of CT regarding abdominal mass and f/u with path and cultures.
--- NOTE | 2024-04-11 13:16 | PD.SURPROG ---
Documentation for date of: 04/11/24 Subjective Subjective Brief History: 63F with history of pancreatitis, Hep C presenting with right axillary mass. Pt reports the lesion has been present for several weeks and has become more firm and attached, she denies any drainage. She states she feels generally unwell with malaise and unintentional weight loss. Pt presented to ER a few days ago and left AMA but US at the time showed abscess vs mass up to 4.9cm PMH: Hep C, pancreatitis PSHx: Csection Meds: denies Allergies: NKDA Social hx: reports smoking 1-2 cigarettes daily Family hx: sister had breast CA, pt states her last mammogram was awhile ago Narrative: Pain controlled, no new complaints Exam Vital Signs Temp Pulse Resp BP Pulse Ox O2 Del Method 97.1 F 65 18 112/52 L 97 Room Air 04/11/24 12:00 04/11/24 12:00 04/11/24 12:00 04/11/24 12:00 04/11/24 12:00 04/11/24 12:00 Constitutional Constitutional: no acute distress Routine Respiratory Exam Respiratory: Present no resp distress Routine Extremities Exam Comments: Right axillary wound with mild erythema, improved compared to preoperatively, minimal oozing at lateral aspect of incision which was controlled with direct pressure, wet to dry packing replaced Results Results: Laboratory Laboratory results: results reviewed Assessment & Plan Plan 63F with HCV presenting with several-week history of R axillary mass, status post incision and drainage with expression of pus as well as incisional biopsy, gradually recovering Wet-to-dry dressings daily Follow-up pathology Okay for discharge from my standpoint when wound care arranged Procedures Procedures Incision and drainage, incisional biopsy
--- NOTE | 2024-04-11 13:20 | PD.ANESPROG ---
Documentation for date of: 04/11/24 POST ANESTHESIA NOTE: Patient had GETA for R axilla mass excision yesterday. Pre-op, I saw her in ED. She had large (orange size) erythematous mass at her R axilla that was painful to her. Her entire R UE also appeared swollen with diffusely erythematous skin; she reported her R UE has been like that for 3-4 weeks and swelling has gone down. She denied chest pain and dyspnea. I saw her briefly in 352 earlier today for post op follow up and she was alert and calm, seated up in bed with food tray in front, NAD, and denied any problems from anesthesia. Zan Castellano MD Anesthesia Progress Note Progress Note Most recent Vital Signs: Last Vital Signs Temp 97.1 F 04/11/24 12:00 Pulse 65 04/11/24 12:00 Resp 18 04/11/24 12:00 BP 112/52 L 04/11/24 12:00 Pulse Ox 97 04/11/24 12:00 O2 Del Method Room Air 04/11/24 12:00
--- NOTE | 2024-04-11 13:30 | ECHO_ITS ---
Transthoracic Echo Report Ht (in): 66 Wt (lb): 130 Exam Location: Echo Lab Status: Inpatient Trains Dispatcher Supervisor: Vidhya Tomlinson Indications: Procedure Performed: BP: 134 / 64 HR: 77 Rhythm: Sinus Technical Quality: Fair MEASUREMENTS (Male / Female) Normal Values 2D ECHO LV Diastolic Diameter PLAX 4.6 cm 4.2 - 5.9 / 3.9 - 5.3 cm LV Systolic Diameter PLAX 3.0 cm IVS Diastolic Thickness 1.0 cm 0.6 - 1.0 / 0.6 - 0.9 cm LVPW Diastolic Thickness 0.8 cm 0.6 - 1.0 / 0.6 - 0.9 cm LV Relative Wall Thickness 0.4 LVOT Diameter 1.8 cm LA Systolic Diameter LX 3.0 cm 3.0 - 4.0 / 2.7 - 3.8 cm LA Volume Index 31.0 cm?/m? 16 - 28 cm?/m? M-MODE Aortic Root Diameter MM 2.4 cm AV Cusp Separation MM 1.9 cm DOPPLER AV Peak Velocity 161.0 cm/s AV Peak Gradient 10.4 mmHg AV Mean Gradient 6.0 mmHg AV Velocity Time Integral 32.8 cm LVOT Peak Velocity 115.0 cm/s LVOT Peak Gradient 5.3 mmHg LVOT Velocity Time Integral 24.2 cm LVOT Cardiac Index 2864.1 cm?/min?m? AV Area Cont Eq vti 1.9 cm? AV Area Cont Eq pk 1.8 cm? MV Peak Velocity 96.1 cm/s MV Peak Gradient 3.7 mmHg MV Mean Velocity 65.3 cm/s MV Mean Gradient 2.0 mmHg MV Area PHT 3.6 cm? MR Peak Velocity 202.5 cm/s MR Peak Gradient 16.4 mmHg Mitral E Point Velocity 77.6 cm/s Mitral A Point Velocity 82.9 cm/s Mitral E to A Ratio 0.9 LV E' Lateral Velocity 9.1 cm/s Mitral E to LV E' Lateral Ratio 8.5 LV E' Septal Velocity 8.1 cm/s Mitral E to LV E' Septal Ratio 9.6 TR Peak Velocity 208.0 cm/s TR Peak Gradient 17.3 mmHg PV Peak Velocity 126.0 cm/s PV Peak Gradient 6.4 mmHg FINDINGS Left Ventricle Normal left ventricular size, wall thickness, systolic function with no obvious regional wall motion abnormalities. Normal left ventricular diastolic filling pattern for age. The ejection fraction is v isually estimated at 65%. Right Ventricle The right ventricle is normal in size and systolic function. Left Atrium The left atrium is normal by two-dimensional, color flow and Doppler imaging with no structural abnormalities, no thrombus formation present. Right Atrium The right atrium is normal by two-dimensional, color flow and Doppler imaging with no structural abnormalities, no thrombus formation present. Atrial Septum The interatrial septum appears normal with no evidence of a shunt. Aorta The aorta is normal by two-dimensional, color flow and Doppler interrogation. Mitral Valve The mitral valve is normal by two-dimensional, color flow and Doppler interrogation. Mild MAC. Trace MR. Aortic Valve The aortic valve is trileaflet and normal by two-dimensional, color flow and Doppler interrogation. There is no significant aortic valve regurgitation. Tricuspid Valve The tricuspid valve is normal by two-dimensional, color flow and Doppler interrogation. Mild TR. Pulmonic Valve The pulmonic valve is not well visualized. There is no significant pulmonic valve regurgitation. Vessels The pulmonary artery appears normal. The inferior vena cava pulmonary and hepatic veins appear juan l. Pericardium The pericardium is normal by two-dimensional imaging. There is no significant pericardial effusion. CONCLUSIONS Indication: Ejection systolic murmur Normal left ventricular size, wall thickness. Estimated EF 65%. RV is normal in size and systolic function. Mild MAC. Trace MR. Mild TR. Katherine Perez (Electronically Signed) Final Date: 13 April 2024 08:54
--- NOTE | 2024-04-11 13:35 | PC.SS ---
Mimi Asif is 63-year-old female admitted to Med-Surg for Intractable Pain. SS conducted bedside contact with the patient to complete initial assessment and to discuss discharge planning. Patient confirmed demographic information. Patient identifies her friend Olga Erickson [phone] her surrogate decision maker. Patient resides at home alone. Pt states she is able to complete all ADL?s independently, no need for any source of DME. Pts PCP is Dr. Shanks [facility] and her pharmacy of choice is [facility] on [address]. DC options discussed and pt wishes to return home at th time of DC. Pts friends will provide transportation upon DC. No further intervention required at this time, forensic social worker would be available to address any further concerns. DC Plan: Home Contact: Olga Rodrigesles [phone] PCP: Stormy (last visit was last week)
--- NOTE | 2024-04-11 13:37 | XR_ITS ---
Examination: CT chest, without intravenous contrast. CT abdomen, without intravenous contrast. CT pelvis, without intravenous contrast. 2-D sagittal and coronal reconstructions. 3-D reconstructions. Date and time of exam:April 11, 2024 1402 hrs. Indications: Chest abdomen axillary pain this week CTDI vol (mgy) 8.42 DLP (MGycm)570 Technique: Multiple CT images, 3.0 mm slice thickness, obtained chest, abdomen, pelvis, with the high-resolution 64 slice scanner.. Sagittal and coronal 2-D reconstructions are obtained. 3-D reconstructions Low dose protocols were performed. One or more of the following dose reduction techniques were used; automated exposure control, adjustment of the mA and/or KV according to patient size, use of iterative reconstruction technique. Findings: Lack of intravenous contrast limits assessment Pathologic appearing right axillary lymphadenopathy Air-containing mass in the right axilla consistent with abscess, at least 5 x 7 cm Minimal pleural disease No lobar pneumonia Aorta is not enlarged No significant cardiac enlargement Retrocardiac gastric hernia Edematous enlarged right breast with masslike area is poorly defined 38 mm right lobe liver lesion No gallstones No hydronephrosis Abundant air and stool throughout the colon Umbilical hernia defect containing transverse colon but no incarcerated bowel Mild free fluid in the pelvis Distended urinary bladder Moderate osteopenia Impression: Enlarged edematous right breast with poorly defined masses Extensive right axillary lymphadenopathy with abscess like area in the right axilla 5 x 7 mm, differential would include inflammatory right breast cancer with metastatic right axillary lymphadenopathy and right axillary abscess 38 mm right lobe liver lesion, consider hepatic metastasis Recommend bilateral breast sonography, diagnostic mammography follow-up Recommend staging PET CT scan or elective CT soft tissue neck chest abdomen pelvis post intravenous contrast follow-up for optimal assessment
--- NOTE | 2024-04-11 14:00 | PC.SS ---
Rounding: pending SX clearance possible DC 04/12
[2024-04-12] VITALS (7 sets, daily range): BP systolic 96–141; BP diastolic 59–80; PULSE 61–79; RESP 16–94; TEMP 36.3–36.8; O2SAT 93–98
[2024-04-12 02:27] LABS: Hepatitis A Antibody IgM Non Reactive (Non React); Hepatitis B Core Antibody IgM Non Reactive (Non React); Hepatitis B Surface Antigen Non Reactive (Non React); Hepatitis C Antibody Reactive (Non React)
[2024-04-12 05:51] LABS: Basophils % (Auto) 1 % (0-2.5); Eosinophils # (Auto) 0.2 Thou/mm3 (0.0-0.5); Eosinophils % (Auto) 4 % (0-10); Hemoglobin 9.6 g/dL (12.0-16.0); Immature Granulocytes % (Auto) 0 % (0-0); Immature Granulocytes Auto 0.02 Thou/mm3 (0.00-0.00); Lymphocytes # (Auto) 0.9 Thou/mm3 (1.0-4.8); Lymphocytes % (Auto) 18 % (10-50); Mean Corpuscular Hemoglobin 27.6 pg (25.0-35.0); Mean Corpuscular Volume 86 fL (80-100); Monocytes # (Auto) 0.5 Thou/mm3 (0.0-0.8); Monocytes % (Auto) 10 % (0-12); Neutrophils # (Auto) 3.4 Thou/mm3 (1.8-7.7); Neutrophils % (Auto) 68 % (37-80); Nucleated Red Blood Cell % 0 /100 WBC (0); Platelet Count 278 Thou/mm3 (140-440); RDW Standard Deviation 42.1 fL (36.4-46.3); Red Blood Count 3.48 Miln/mm3 (4.00-5.20)
[2024-04-12] MEDS: oxyCODONE/APAP 5/325 TABLET 1 TAB PO ×2 (06:01→16:02)
[2024-04-12 06:12] LABS: Anion Gap 3 (7-16); BUN/Creatinine Ratio 36 Ratio (12-20); Blood Urea Nitrogen 18 mg/dL (9-23); Calcium 8.7 mg/dL (8.3-10.6); Carbon Dioxide 33.3 mMol/L (20.0-31.0); Chloride 105 mMol/L (98-107); Creatinine (Component) 0.5 mg/dL (0.6-1.3); Estimated Creatinine Clearance 110.1 mL/min (>60); Glucose 82 mg/dL (74-106); Osmolality,Calculated 282 (275-295); Potassium 3.9 mMol/L (3.4-5.1); Sodium 141 mMol/L (136-145); eGFR > 60 See Note
[2024-04-12 09:10] LABS: Alanine Aminotransferase 85 U/L (10-49); Albumin, Serum 2.6 gm/dL (3.4-4.8); Alkaline Phosphatase 81 U/L (46-116); Aspartate Amino Transferase 165 U/L (0-34); Bilirubin,Direct < 0.1 mg/dL (0.0-0.3); Bilirubin,Total 0.2 mg/dL (0.3-1.2); Total Protein 6.8 gm/dL (5.7-8.2)
[2024-04-12] MEDS: ZINC SULFATE 220 MG CAPSULE PO (09:21)
[2024-04-12] MEDS: cefTRIAXone/D5w 1gm IV premix 50 ML IV (09:21)
[2024-04-12] MEDS: ENOXAPARIN SOD INJ 40 MG/0.4 ML SYRINGE SC (09:21)
[2024-04-12] MEDS: VIT B12/Vit C/FA (Nephrovite) TABLET 1 TAB PO (09:21)
[2024-04-12 10:00] LABS: Vancomycin,Trough 17.1 mcg/mL (5.0-10.0)
[2024-04-12 10:43] LABS: Carcinoembryonic Antigen 0.8 ng/mL (0.0-5.0)
--- NOTE | 2024-04-12 10:46 | PC.SS ---
Follow up note: Patient has d/c order for home today. No further d/c needs
[2024-04-12] MEDS: DOXYCYCLINE 100 MG TABLET PO (11:42)
[2024-04-12] MEDS: cephALEXin 250 MG CAPSULE 500 MG PO (11:42)
[2024-04-12] MEDS: FUROSEMIDE INJ 10 MG/ML 4ML VIAL 40 MG IVP (12:49)
--- NOTE | 2024-04-12 14:52 | PC.SS ---
Scheduled patient for an appointment with the [facility] for 04/14/[address] Blankenship. Provided patient with appointment date and time along with address for follow up.
--- NOTE | 2024-04-12 15:03 | ESDS_ITS ---
<Statement entered by Sue Hernandez DO - 04/13/24 14:11> I, Sue Hernandez DO, attest that I was physically present for the dai portions of the service and evaluated the patient with the resident and I reviewed and discussed the case with the resident and agree with the resident's findings and plans of care as documented above <Statement entered by Mecca Rivera MD - 04/13/24 07:45> Patient was seen and examined by me personally. I agree with the discharge plan as discussed with the music industry intern physician, and my attending, Dr. Hernandez. Complete abx course as directed. Follow up in [facility] with Dr. Catalan; with Dr. Emmanuel outpatient for axillary mass path results; wound care. Return precautions provided. Mecca Rivera MD, PGY-3 Planned Discharge Date 04/12/24 DS: Providers Provider Date of admission: 04/10/24 11:39 Primary care physician: Octavio Shanks MD Admitting Provider: George Guan DO Attending Provider on Admission: George Guan DO Consults: 04/10/24 12:31 Consult to General Surgery Routine Comment: Consulting Provider: Briseyda Emmanuel Attending Provider on DC: Slava Catalan MD Discharging Provider: Slava Catalan MD DS: Diagnosis Problem List Completed Was Problem List Reviewed/Reconciled?: Yes Hospital Course Hospital Course Hospital course: #Right axillary mass, abscess versus malignancy #Hx Polysubstance drug abuse disorder #Transaminitis # Hepatitis C A 63 yr female with PMH of pancreatitis, history of alcohol use, hepatitis C, and polysubstance drug use disorder presented to hospital due to mass in the right axillary region which was present since 3 weeks and worsened recently. Patient previously been to the emergency department on 04/06 with same symptoms, left home for the Thanksgiving with clindamycin and got admitted on 04/10/2024. Labs showed iron deficiency anemia, metabolic alkalosis, mildly elevated liver enzymes, hypoalbuminemia. Urine toxicology tested positive for opiates, fentanyl, meth. Tested positive for hepatitis C antibodies. Venous Doppler of right upper extremity is negative for DVT. Patient underwent incision and drainage with biopsy by Dr. Tan and drained 20 cc of pus which was later sent for culture and did not grow any organism. CT chest/abdomen/pelvis showed e nlarged edematous right breast with poorly defined masses, Extensive right axillary lymphadenopathy with abscess like area in the right axilla 5 x 7 mm, 38 mm right lobe liver lesion. High suspicion for malignancy given findings. Patient verbalized understanding. Patient was found to have systolic murmur heard loudest at pulmonary area for which echo was ordered but not taken during the hospitalization and recommended to follow-up in outpatient basis. Recommended to follow-up in the outpatient basis in academic clinic for the biopsy results. Patient was discharged to home with the following medications and recommendations. - Follow up with PCP in 1 week from discharge. - Complete antibiotic course (Doxycycline, cephalexin) as prescribed. - Ordered 5 tabs of oxycodone for severe pain not responding to tylenol. - Take iron supplement every other day, as prescribed - Take vitamins/zinc as prescribed - Advisable to get PET CT scan or CT soft tissue neck chest abdomen pelvis with intravenous contrast - Follow up with Hem/Oncology for further evaluation - Follow up with general surgery Dr Emmanuel for biopsy results from RT axilla mass - Resume activity as tolerated - Return to ED if symptoms worsen Patient plan of care was discussed with the attending physician, Dr. Hernandez and senior resident Dr. Nicole Catalan, PGY1 Time Spent with Patient Time attestation: Total time spent providing and/or coordinating discharge services: Time spent: Greater than 30 minutes Exam Vital Signs Temp Pulse Resp BP Pulse Ox O2 Del Method 97.8 F 79 18 134/64 H 93 L Room Air 04/12/24 12:00 04/12/24 14:06 04/12/24 14:06 04/12/24 12:49 04/12/24 12:00 04/12/24 12:00 Narrative Exam General: Awake and in no acute distress. HEENT: Normocephalic, atraumatic, mucous membranes moist. Heart: Regular rate and rhythm, ejection systolic murmur heard at pulmonary area. Lungs: Clear to auscultation with no wheezing or crackles. Abdomen: Soft, nondistended, nontender, positive bowel sounds. ?No guarding or rebound tenderness. Neurologic: Alert and oriented x3, no gross neurological deficit, and patient able to move all 4 extremities. Extremities: b/l peripheral vascular disease changes in both lower extremities. Hard mass noted in right anterior axillary fold. Skin: No rash or ecchymoses. Discharge Plan Plan Patient Disposition: HOME (Self Care) Patient condition on transfer: Stable Prescriptions/Referrals Prescriptions/Med Rec: New cephalexin 250 mg Capsule 500 mg PO QID 5 Days Qty: 40 0RF ferrous sulfate 325 mg (65 mg iron) Tablet,Delayed Release (Dr/Ec) 325 mg PO Q48H 30 Days Qty: 15 1RF doxycycline hyclate 100 mg Tablet 100 mg PO BID 5 Days Qty: 10 0RF oxycodone-acetaminophen 5-325 mg Tablet 1 tab PO Q6H MDD 20mg PRN (Reason: Pain Scale 7-10, severe) Qty: 5 0RF zinc sulfate 50 mg zinc (220 mg) Capsule 220 mg PO QDAY 14 Days Qty: 62 0RF Nephro-Jose 0.8 mg Tablet 1 tab PO QDAY 14 Days Qty: 14 0RF Discontinued clindamycin HCl 150 mg capsule 450 mg PO TID 7 Days Qty: 63 0RF No Action hydrocodone-acetaminophen 5-325 mg tablet 1 tab PO BID MDD 10 PRN (Reason: pain) Qty: 6 0RF ibuprofen 600 mg tablet 600 mg PO Q6H Qty: 30 0RF Referrals: Octavio Shanks MD [Primary Care Provider] - Outpatient Orders (i.e. Home Health, Labs, Imaging): [facility] (Routine) Location: None Selected Ordered By: Sue Hernandez Patient/Caregiver Discharge Instructions Discharge Activity: activity as tolerated and resume usual activities Other Discharge Activity Instructions:: - Follow up with PCP in 1 week from discharge. If you do not have a PCP or an appointment is not available, you can call the [facility] at [phone] and make an appointment with Dr. Catalan - Complete antibiotic course (Doxycycline, cephalexin) as prescribed. - Ordered 5 tabs of oxycodone for severe pain not responding to tylenol. - Take iron supplement every other day, as prescribed - Take vitamins/zinc as prescribed - Advisable to get PET CT scan or CT soft tissue neck chest abdomen pelvis with intravenous contrast - Follow up with Hem/Oncology for further evaluation - Follow up with general surgery Dr Emmanuel for biopsy results from RT axilla mass - Resume activity as tolerated - Return to ED if symptoms worsen - Follow up at [facility], [address] [place] [address]. Call [phone] for appointment. - Wound care: May shower than change dressing. Wash hands with soap and water. Irrigate wound with normal saline and pat dry with gauze. Wash hands again. Moistened dry gauze lightly with normal saline and wring out excess. Pack wound with gauze strip until resistance is felt starting at top of wound going in circular motion than filling in remaining cavity. Cover with dry gauze dressing. Change once a day and as needed for falling off or saturating. Education Materials: Nutrition for Wound Healing, Image-Guided Biopsy, Incision Care Dc, Changing Dressing Dc, Preventing Surgical Site Infections, Lymph Nodes Swollen Ch Print Language: Macedonian Stand Alone Forms: [facility] Award Info., Patient Portal Info Letter Discharge Order Discharge Orders: Discharge (Routine); Ordered 04/12/24 Ordered By: Slava Catalan Quality Discharge Quality Measures VTE prophylaxis
--- NOTE | 2024-04-12 15:47 | PC.WOUND ---
Addendum entered by Tiara Cueva RN 04/12/24 16:36: Patient seen at bedside for wound care teaching. Completed including supplies x 1 week given at bedside. See Wound artificial pearl maker for details. Original Note: Spoke with krystle Bee to discharge with NS wet/dry dressings daily. Follow up at [facility].
[2024-04-15 07:02] LABS: CA 19-9 Antigen* 48 U/mL (<34)
== END 2024-04-12 18:48 | disposition home or self-care (01) | DRG 607 ==
LOC: SERX 11:19 → SERHOLD 11:45 → S3NX 13:58
PROVIDERS: Internal Medicine; Physician Assistant; Student in an Organized Health Care Education/Training Program; Surgery; Admitting Provider Student in an Organized Health Care Education/Training Program; Emergency Provider Emergency Medicine; PCP Family Medicine; Visit Provider Student in an Organized Health Care Education/Training Program
PROC: 0X943ZX Drainage of Right Axilla, Percutaneous Approach, Diagnostic (ICD-10-PCS; principal; 2024-04-10 12:00)
DX: R22.2 Localized swelling, mass and lump, trunk (principal); F17.210 Nicotine dependence, cigarettes, uncomplicated; B19.20 Unspecified viral hepatitis C without hepatic coma; D64.9 Anemia, unspecified; F19.10 Other psychoactive substance abuse, uncomplicated; F10.10 Alcohol abuse, uncomplicated; F11.10 Opioid abuse, uncomplicated; R01.1 Cardiac murmur, unspecified; F15.10 Other stimulant abuse, uncomplicated
CPT/HCPCS: 36415; 71045; 71250; 74176; 76705; 80048; 80053; 80074; 80076; 80202; 80307; 82105; 82378; 82728; 83036; 83540; 83550; 84443; 85025; 85610; 85730; 86301; 86703; 87040; 87070; 87205; 93306; 93971; 99285; A4649; J0690; J0696; J1100; J1650; J1885; J1940; J2270; J2371; J2704; J2710; J2765; J3010; J3370; J3490; A9270; J1596

== ENCOUNTER 2024-04-14 14:19 | Outpatient (AMB) | payer OTHER, MEDICAID, SELFPAY ==
--- NOTE | 2024-04-14 14:51 | PD.RESCLINIC ---
Allergies/Meds Allergies & Medications Allergies No Known Allergies Allergy (Verified 04/26/24 14:54) OR Intake Visit Data Collection PCP or OBGYN visit in last 3 months: No Smoking Status Smoking Status: Current every day smoker Cessation Counseling Provided: FUNMI was advised that quitting smoking is the single most important factor to protect the health of themselves and their family. Discussed the benefits of quitting smoking with patient. Encouraged patient to quit smoking and provided Cessation assistance materials and resources. Tobacco Use: Cigarette Years smoked: 15 Are you interested in quitting?: Yes Would you like additional Smoking Cessation Counseling?: No Immunization / Flu Flu Vaccine in the Last 12 Months: No Flu Vaccine Exclusion Criteria: Refused by Patient Past Medical History Past Medical History NEUROLOGIC: Negative Neurological Disorders or Seizures CARDIAC: Negative Cardiac Disorders or Congestive Heart Failure RESPIRATORY: Negative Chronic Obstructive Pulmonary Disease (COPD) GASTROINTESTINAL: Positive Hepatitis (hep c) and Pancreatitis GENITOURINARY: Negative Genitourinary Disorders or Renal Disease REPRODUCTIVE: Negative Pelvic Inflammatory Disease ENDOCRINE: Negative Diabetes Mellitus Type 1 or Diabetes Mellitus Type 2 HEMATOLOGIC: Negative Blood Disorders PSYCHO/SOCIAL: Positive Recreational Drug Use OTHER HISTORY: Negative Autoimmune Disease, Blood Transfusions, Blood Transfusion Reaction, Anesthesia Reactions, Organ Transplant, MRSA or Cancer Surgical History SURGICAL: Negative Organ Transplant Social History SMOKING STATUS: Smoking status: Current every day smoker ALCOHOL: Alcohol Intake: Current LIVES WITH: Lives With: Alone Patient [facility] Social History Tobacco History Smoking Status: Current every day smoker Alcohol History Alcohol Intake: Current Review of Systems Report any current symptoms Only answer those that you have currently: Past Medical History Past Medical History Have you ever been diagnosed with any of the following: Neurological Problems Seizures: No Cardiology Problems Congestive Heart Failure: No Respiratory Problems Chronic Obstructive Pulmonary Disease (COPD): No Stomache/Intestinal Problems Hepatitis: Yes (hep c) Pancreatitis: Yes Genital/Urinary Problems Renal Disease: No Reproductive Problems Pelvic Inflammatory Disease: No Endocrine Problems Diabetes Mellitus Type 1: No Diabetes Mellitus Type 2: No Psychologic Problems Recreational Drug Use: Yes Other Problems Autoimmune Disease: No Blood Transfusions: No Blood Transfusion Reaction: No Anesthesia Reactions: No Organ Transplant: No MRSA: No Cancer: No History of Present Illness HPI Narrative 04/14/24: Miss Stafford a 63 years old female patient with significant medical history for Hep C, history of pancreatitis and polysubstance use comes in to clinic after hospital discharge. Patient was having right axillary pain and erythema for x2 month, wasn't able to see PCP and thus went to [facility] ED on 04/10/24. Patient was admitted and treated for abscess/cellulitis. General surgeon Dr. Emmanuel performed I&D, sample was sent out for pathology. CT w/ contrast was indicative of: enlarged edematous right breast with poorly defined masses, extensive right axillary lymphadenopathy with abscess like area in the right axilla 5 x 7 mm, differential would include inflammatory right breast cancer with metastatic right axillary lymphadenopathy and right axillary abscess, 38 mm right lobe liver lesion, consider hepatic metastasis . While in hospital, there was concern for systolic murmur and given patient's drug use history an echo was ordered. Result of echo showed normal EF with no vegetations noted. Pathology report shows ghosted epithelial cells with GMS negative for fungal element. Pathology report also recommended repeat biopsy of tissue at margin of lesion to evaluate variable tissue. Today patient will be referred to GI Dr. Montano regarding Hep C and possible treatment, Hep C genotype and viral load ordered. CT w/ contrast of chest/abdomen/pelvis ordered. Patient has upcoming appt with general surgeon Dr. Emmanuel on Friday04/19/24. Patient encouraged to make appt for wound-care. Next appointment made in x1 month for follow up. Review of Systems Review of Systems Systems Reviewed: All systems reviewed, normal except as documented Objective/Exam Narrative Physical exam: Constitutional: well-developed, well-nourished, in no acute distress, lying in bed HEENT: NCAT, EOMI, reactive round pupils b/l, patent nares b/l, moist mucous membranes, poor dentition Lung: CTAB, no wheezing, no rhonchi Heart: Regular S1S2, no gallops or rubs Abdomen: Soft, non-distended, non-tender, bowel sounds present throughout Extremities: No cyanosis, clubbing, or edema, LE pulses present b/l Neurologic: No focal sensory or motor deficits noted, AOx3, appropriate affect Skin: Warm, dry, no lesions or rashes noted Assessment & Plan Diagnosis / Problem List (1) Axillary mass: Status: Acute Qualifiers: Laterality: right Qualified Code(s): R22.31 - Localized swelling, mass and lump, right upper limb Assessment & Plan: Patient had recent admission for I&D General surgery appt with Dr. Emmanuel on Friday04/19/24 Pathology report of I&D indicated ghost cells, recommended repeat biopsy of marginal zones Plan: Encouraged to make appt with wound care CT of chest/abdomen/pelvis with contrast order given to patient as there is concern for malignancy Advised to complete course of antibiotics as dispensed post d/c (2) Hepatitis C: Status: Chronic Qualifiers: Hepatic coma status: without hepatic coma Viral hepatitis chronicity: chronic Qualified Code(s): B18.2 - Chronic viral hepatitis C Assessment & Plan: Patient with history of more than 2 decades of Hep C Patient has never been treated Hospital admission HepC titers reactive Plan: Ordered Hep C genotype and viral load Referral to [facility] (3) Polysubstance use disorder: Status: Acute Assessment & Plan: Patient with history of heroin, meth, fentanyl and opioid use On last hospital admission, toxicology postive for fentanyl, meth and opioid Patient states she used fentanyl and meth x2 days after hospital discharge Plan: Encouraged abstinence from drug abuse Will follow up on next visit Orders: Orders HCV RNA, PCR, QN* 04/14/24 B19.20 - Unspecified viral hepatitis C without hepatic coma CT chest abdomen pelvis w 05/27/24 R22.30 - Localized swelling, mass and lump, unspecified upper limb Referrals Gastroenterology Additional Assessment Attending note: I, Marcelino Gatica MD, attest that I was physically present for the dai portions of the service and evaluated the patient with the resident and I reviewed and discussed the case with the resident and agree with the resident's findings and plans of care as documented above. New patient to clinic. Recent hospital discharge following admission for abscess/cellulitis right axilla. CT scan showed enlarged edematous right breast with poorly defined masses, extensive right axillary lymphadenopathy with abscess like area in the right axilla 5 x 7 mm, differential would include inflammatory right breast cancer with metastatic right axillary lymphadenopathy and right axillary abscess, 38 mm right lobe liver lesion, consider hepatic metastasis. Patient to follow-up with general surgery, repeat biopsy of marginal zones of abscess recommended for repeat biopsy. Patient with history of hepatitis C, we will make referral to [facility] and order hepatitis C viral load. Will repeat a CT of the chest abdomen and pelvis given concern for malignancy. Marcelino Gatica MD Physician Billing New Patient New Patient: E/M Level 3-CPT 38257
== END 2024-04-14 15:09 | disposition home or self-care (01) ==
LOC: HODAHC 14:19
PROVIDERS: Supervising Provider Internal Medicine; Visit Provider Internal Medicine
DX: R22.31 Localized swelling, mass and lump, right upper limb (principal); B19.20 Unspecified viral hepatitis C without hepatic coma; F19.10 Other psychoactive substance abuse, uncomplicated; Z71.51 Drug abuse counseling and surveillance of drug abuser
CPT/HCPCS: 99213; G0463

== ENCOUNTER 2024-04-19 09:57 | Outpatient (AMB) | payer OTHER, MEDICAID, SELFPAY ==
--- NOTE | 2024-04-19 10:10 | PD.GSCLVISIT ---
Vital Signs - [facility] 04/19/24 10:13 Height 1.68 m Height Method Stated Weight 58.088 kg Weight Measurement Method Standing Scale BMI 20.5 BP 117/72 Blood Pressure Source Automatic Cuff Blood Pressure Location Right Upper Arm Position Sitting Respiration 19 Pulse 102 H Pulse Source Monitor Temp 98.2 F Temp Source Temporal Artery Scan Pulse Oximetry (%) 97 Oxygen Delivery Method Room Air Med/Allergies Allergies & Medications Allergies No Known Allergies Allergy (Verified 04/19/24 10:14) Medication Reconciliation hydrocodone 5 mg-acetaminophen 325 mg tablet 1 tab PO BID PRN pain #6 tabs 04/06/24 [Rx Confirmed 04/10/24] ibuprofen 600 mg tablet 600 mg PO Q6H #30 tabs 04/06/24 [Rx Confirmed 04/10/24] ferrous sulfate 325 mg (65 mg iron) tablet,delayed release 325 mg PO Q48H 30 days #15 tabs 04/12/24 [Rx Confirmed 04/19/24] oxycodone-acetaminophen 5 mg-325 mg tablet 1 tab PO Q6H PRN Pain Scale 7-10, severe #5 tabs 04/12/24 [Rx] vitamin B complex-vitamin C-folic acid 0.8 mg tablet (Nephro-Jose) 1 tab PO QDAY 2 weeks #14 tabs 04/12/24 [Rx] zinc sulfate 50 mg zinc (220 mg) capsule 220 mg (4.4 x 50 mg zinc (220 mg)) PO QDAY 2 weeks #62 caps 04/12/24 [Rx] cephalexin 500 mg capsule 500 mg PO BID 04/19/24 [History Confirmed 04/19/24] oxycodone-acetaminophen 5 mg-325 mg tablet (Percocet) 1 tab PO Q6H PRN pain #10 tabs 04/19/24 [Rx] MA Intake Visit Data Collection New Patient or Established: Established Patient (seen at [facility] within 3 years) Reason for Visit:: FOLLOW UP Pain Present Currently: Yes Pain Location: Chest Pain scale:: 6 Pain Scale Used: [place]/Numerical Multifocal Button Generator Required: No PCP or OBGYN visit in last 3 months: Yes Hx Now: No Do You Feel Safe at Home: Yes Authorities Contacted: N/A Smoking Status Smoking Status: Current every day smoker Cessation Counseling Provided: FUNMI was advised that quitting smoking is the single most important factor to protect the health of themselves and their family. Discussed the benefits of quitting smoking with patient. Encouraged patient to quit smoking and provided Cessation assistance materials and resources. Tobacco Use: Cigarette Years smoked: 10 Are you interested in quitting?: No Immunization / Flu Flu Vaccine in the Last 12 Months: No Flu Vaccine Exclusion Criteria: Refused by Patient Past Medical History Past Medical History NEUROLOGIC: Negative Neurological Disorders or Seizures CARDIAC: Negative Cardiac Disorders or Congestive Heart Failure RESPIRATORY: Negative Chronic Obstructive Pulmonary Disease (COPD) GASTROINTESTINAL: Positive Hepatitis (hep c) and Pancreatitis GENITOURINARY: Negative Genitourinary Disorders or Renal Disease REPRODUCTIVE: Negative Pelvic Inflammatory Disease ENDOCRINE: Negative Diabetes Mellitus Type 1 or Diabetes Mellitus Type 2 HEMATOLOGIC: Negative Blood Disorders PSYCHO/SOCIAL: Positive Recreational Drug Use OTHER HISTORY: Negative Autoimmune Disease, Blood Transfusions, Blood Transfusion Reaction, Anesthesia Reactions, Organ Transplant, MRSA or Cancer Surgical History SURGICAL: Negative Organ Transplant Social History SMOKING STATUS: Smoking status: Current every day smoker ALCOHOL: Alcohol Intake: Current LIVES WITH: Lives With: Alone HPI HPI Narrative 63F with HCV presenting with several-week history of R axillary mass, s/p incision and drainage with expression of pus as well as incisional biopsy 04/10, here for planned follow up. Pt reports she has mild pain at the incision site and drainage on the dressings, but she overall feels well with no complaints. She was seen by IM last week and CT CAP with contrast was ordered for staging workup; I explained that she will need additional workup including mammogram, breast US, PET CT and an additional biopsy of the axillary mass per pathology request ROS Review of Systems Systems Reviewed: All systems reviewed, normal except as documented Objective/Exam General General Appearance: alert, cooperative and well groomed Chest Chest inspection: Present other (right axillary wound with no surrounding erythema, some necrotic tissue in bed, no active bleeding, wet-dry packing replaced) Resp Respiratory exam: Absent respiratory distress Results Pathology of axillary lesion reviewed CT CAP reviewed Assessment & Plan Diagnosis / Problem List (1) Axillary mass: Status: Acute Qualifiers: Laterality: right Qualified Code(s): R22.31 - Localized swelling, mass and lump, right upper limb Assessment & Plan: 63F with HCV presenting with several-week history of R axillary mass s/p incisional biopsy 04/10 with findings concerning for breast CA, and CT done without contrast indicates the right breast as the likely source as well as a potential hepatic metastasis. I explained these findings and the fact that she will need further workup to include another biopsy as well as imaging. All questions were answered and pt expressed understanding Orders: Orders JESICA CAD diagnostic BI 1 Week US breast BI complete 1 Week R22.31 - Localized swelling, mass and lump, right upper limb PET whole body 1 Week R22.31 - Localized swelling, mass and lump, right upper limb Referrals Oncology R22.31 - Localized swelling, mass and lump, right upper limb Office Procedures GNS Level of Care Nursing/Assessment Patient Status: Established Patient Nursing Assessment/Reassesment: Medication Reconciliation, Update PMH in EMR and Vital Signs Coordination of Care: Complex Care and Chronic Disease 1-5, Education Complex Pt/Fam, Consent,records obtained, informed consent, 2-3 Insurance Autorizations needed, Lab and Imaging orders, Results/Orders obtained and Staff clarify orders Established Patient Charge Established Patient Point Assignment: 130 Established Patient Point Charge: EP Level 4 (120-155) Patient Portal Questionaires Social History Tobacco History Smoking Status: Current every day smoker Alcohol History Alcohol Intake: Current Domestic Abuse History Do You Feel Safe at Home: Yes Review of Systems Report any current symptoms Only answer those that you have currently: Past Medical History Past Medical History Have you ever been diagnosed with any of the following: Neurological Problems Seizures: No Cardiology Problems Congestive Heart Failure: No Respiratory Problems Chronic Obstructive Pulmonary Disease (COPD): No Stomache/Intestinal Problems Hepatitis: Yes (hep c) Pancreatitis: Yes Genital/Urinary Problems Renal Disease: No Reproductive Problems Pelvic Inflammatory Disease: No Endocrine Problems Diabetes Mellitus Type 1: No Diabetes Mellitus Type 2: No Psychologic Problems Recreational Drug Use: Yes Other Problems Autoimmune Disease: No Blood Transfusions: No Blood Transfusion Reaction: No Anesthesia Reactions: No Organ Transplant: No MRSA: No Cancer: No
[2024-04-19 10:13] VITALS: BP 117/72; PULSE 102; RESP 19; TEMP 36.8; O2SAT 97; BMI 20.5
== END 2024-04-19 10:21 | disposition home or self-care (01) ==
LOC: HODSRG 09:57
PROVIDERS: Supervising Provider Surgery; Visit Provider Surgery
DX: R22.31 Localized swelling, mass and lump, right upper limb (principal)
CPT/HCPCS: 99214; G0463

== ENCOUNTER 2024-04-21 12:05 | Day surgery (SDC) | payer OTHER, MEDICAID, SELFPAY ==
--- NOTE | 2024-04-20 06:00 | EKG_ITS ---
[facility] Test Date: 2024-04-20 Pat Name: FUNMI MAYES Department: Room: - Gender: Female Ct Scan Special Procedures Technologist: THERESA : 1960 Requested By: Zan Castellano Order Number: [id number] Reading MD: Zan Castellano Measurements Intervals [place] Rate: 85 P: 36 MD: 132 QRS: 34 QRSD: 90 T: 32 QT: 335 QTc: 398 Interpretive Statements SINUS RHYTHM POSSIBLE ANTERIOR MYOCARDIAL INFARCTION , OF INDETERMINATE AGE No previous ECG available for comparison /store/S0/[id number]
[2024-04-20 07:13] VITALS: BMI 20.9
--- NOTE | 2024-04-20 07:26 | SUR.PREOP ---
Pt stated had biopsy right axilla last week, she stated the wound has packing, right arm is swollen to the fingers.
[2024-04-20 08:42] LABS: Basophils % (Auto) 1 % (0-2.5); Eosinophils # (Auto) 0.2 Thou/mm3 (0.0-0.5); Eosinophils % (Auto) 3 % (0-10); Hematocrit 32.9 % (36.0-46.0); Hemoglobin 10.4 g/dL (12.0-16.0); Immature Granulocytes % (Auto) 0 % (0-0); Immature Granulocytes Auto 0.02 Thou/mm3 (0.00-0.00); Lymphocytes % (Auto) 13 % (10-50); Mean Corpuscular HGB Conc 31.6 g/dl (31.0-37.0); Mean Corpuscular Hemoglobin 27.4 pg (25.0-35.0); Mean Corpuscular Volume 87 fL (80-100); Monocytes # (Auto) 1.1 Thou/mm3 (0.0-0.8); Monocytes % (Auto) 15 % (0-12); Neutrophils # (Auto) 5.1 Thou/mm3 (1.8-7.7); Neutrophils % (Auto) 68 % (37-80); Nucleated Red Blood Cell % 0 /100 WBC (0); Platelet Count 348 Thou/mm3 (140-440); RDW Standard Deviation 45.4 fL (36.4-46.3); White Blood Count 7.4 Thou/mm3 (3.6-11.0)
[2024-04-20 08:59] LABS: Alanine Aminotransferase 101 U/L (10-49); Albumin, Serum 3.5 gm/dL (3.4-4.8); Albumin/Globulin Ratio 0.7 (1.2-2.2); Alkaline Phosphatase 117 U/L (46-116); Anion Gap 5 (7-16); Aspartate Amino Transferase 168 U/L (0-34); BUN/Creatinine Ratio 27 Ratio (12-20); Bilirubin,Total 0.4 mg/dL (0.3-1.2); Blood Urea Nitrogen 16 mg/dL (9-23); Calcium 9.8 mg/dL (8.3-10.6); Calcium (Corrected) 10.2 mg/dL (8.5-10.1); Carbon Dioxide 33.8 mMol/L (20.0-31.0); Chloride 97 mMol/L (98-107); Creatinine (Component) 0.6 mg/dL (0.6-1.3); Estimated Creatinine Clearance 91.3 mL/min (>60); Globulin 5.3 gm/dL (2.3-3.5); Glucose 123 mg/dL (74-106); Osmolality,Calculated 274 (275-295); Potassium 3.8 mMol/L (3.4-5.1); Sodium 136 mMol/L (136-145); Total Protein 8.8 gm/dL (5.7-8.2); eGFR > 60 See Note
[2024-04-20 09:36] LABS: INR 1.1 (0.9-1.3); Partial Thromboplastin Time 30.5 Seconds (22.0-36.0); Prothrombin Time 11.9 Seconds (9.0-12.2)
[2024-04-21] VITALS (7 sets, daily range): BP systolic 104–129; BP diastolic 53–68; PULSE 68–91; RESP 12–14; TEMP 36.7; O2SAT 96–100; BMI 20.8
--- NOTE | 2024-04-21 13:41 | PD.SUROPNT ---
Date of Procedure 04/21/24 Pre Op Diagnosis Right axillary mass with previous biopsy indicative but not diagnostic of malignancy Post Op Diagnosis Same Procedure Incisional biopsy of right axillary mass Findings Right axillary mass with necrotic and fibrinous tissue Procedure Description After discussing the previous biopsy with the pathologist, I spoke to the patient and explained that more tissue was needed to confirm the possible diagnosis of breast cancer. All questions were answered and patient agreed to proceed. Patient was brought to the operating room, SCDs were placed and general anesthesia was induced. She was prepped and draped in the usual sterile fashion and received preoperative antibiotics. After timeout the wound was probed and additional tissue was taken from the bed of the wound using blunt dissection as well as sharp dissection with Metzenbaum scissors. The wound was irrigated and hemostasis was achieved with electrocautery. The wound was packed with moistened gauze and covered with gauze and tape. Patient was awoken and extubated without complication. She was brought to PACU in stable condition Pathology / specimen Other (Right axillary mass) Estimated Blood Loss 5 Surgeon Briseyda Emmanuel MD Surgical Staff Operation Date: 04/21/24 13:30 <No data on this case meets the specified criteria>
--- NOTE | 2024-04-21 13:43 | PD.SURDS ---
Planned Discharge Date 04/21/24 DS: Providers Provider Primary care physician: Elieser Heller MD Attending Provider on Admission: Briseyda Emmanuel MD Attending Provider on DC: Briseyda Emmanuel MD Discharging Provider: Briseyda Emmanuel MD Diagnosis Problem List Completed Was Problem List Reviewed/Reconciled?: Yes Exam Vital Signs Temp Pulse Resp BP Pulse Ox 98.1 F 91 12 104/55 L 96 04/21/24 12:39 04/21/24 12:39 04/21/24 12:39 04/21/24 12:39 04/21/24 12:39 Discharge Plan Plan Patient Disposition: HOME (Self Care) Prescriptions/Referrals Prescriptions/Med Rec: No Action ibuprofen 600 mg tablet 600 mg PO Q6H Qty: 30 0RF ferrous sulfate 325 mg (65 mg iron) Tablet,Delayed Release (Dr/Ec) 325 mg PO Q48H 30 Days Qty: 15 1RF Referrals: Briseyda Emmanuel MD [Physician] - (You will receive a phone call to confirm a follow-up appointment with me next week) Elieser Hleler MD [Primary Care Provider] - Patient/Caregiver Discharge Instructions Other Discharge Activity Instructions:: Continue daily packing changes If you develop worsening pain, fever, or bleeding please seek care in ER Print Language: Bulgarian Stand Alone Forms: [facility] Award Info., Patient Portal Info Letter Discharge Order Discharge Orders: Discharge (Routine); Ordered 04/21/24 Ordered By: Briseyda Emmanuel Results Results: Laboratory Laboratory results: results reviewed Procedures Procedure Date 04/21/24 Procedures Incisional biopsy of right axillary mass
--- NOTE | 2024-04-21 14:00 | SUR.PHASEI ---
1340: Pt received for recovery. Report from Blanquita ANTONY and Ann ADAM. Pt sleepy. Is arousable but unable to remain awake. Resp even, unlabored. VS stable. Dressing to right axilla dry, clean, intact. 1402: Pt more awake, alert. VS stable. Dressing unchanged. No c/o pain.
--- NOTE | 2024-04-21 14:16 | SUR.PHASEII ---
1415: Pt more awake, alert. VS stable. Dressing remains dry, clean, intact. Pt arrived with +2 pitting edema both lower extremities and right arm. Denies pain. Sitting up tolerating po fluids with no difficulty swallowing and no n/v.
--- NOTE | 2024-04-21 15:49 | SUR.PHASEII ---
1450: Pt fully awake, oriented x3. VS stable. Dressing remains dry, clean, intact. Denies pain. Pt assisted to restroom. Ambulation steady. Pt and friend stated understanding of discharge instructions. Pt discharge from [facility] in stable condition.
== END 2024-04-21 14:50 | disposition home or self-care (01) ==
PROVIDERS: Anesthesiology; PCP Internal Medicine; Referring Provider Surgery; Visit Provider Surgery
PROC: (CPT 21556; principal; 2024-04-21 13:15)
DX: N63.31 Unspecified lump in axillary tail of the right breast (principal); Z01.810 Encounter for preprocedural cardiovascular examination
CPT/HCPCS: 21556; 36415; 80053; 85025; 85610; 85730; 93005; A4217; A4649; J0690; J1100; J2371; J2405; J2704; J3010; J3490

== ENCOUNTER 2024-04-26 14:41 | Outpatient (AMB) | payer OTHER, MEDICAID, SELFPAY ==
--- NOTE | 2024-04-26 14:52 | PD.GSCLVISIT ---
[facility] - [facility] 04/26/24 14:53 Height 1.68 m Height Method Stated Weight 58.655 kg Weight Measurement Method Standing Scale BMI 20.7 BP 125/68 Blood Pressure Source Automatic Cuff Blood Pressure Location Left Upper Arm Position Sitting Respiration 19 Pulse 93 Pulse Source Monitor Temp 96.5 F L Temp Source Temporal Artery Scan Pulse Oximetry (%) 100 Oxygen Delivery Method Room Air Med/Allergies Allergies & Medications Allergies No Known Allergies Allergy (Verified 04/26/24 14:54) Medication Reconciliation ibuprofen 600 mg tablet 600 mg PO Q6H #30 tabs 04/06/24 [Rx Confirmed 04/26/24] ferrous sulfate 325 mg (65 mg iron) tablet,delayed release 325 mg PO Q48H 30 days #15 tabs 04/12/24 [Rx Confirmed 04/26/24] MA Intake Visit Data Collection New Patient or Established: Established Patient (seen at [facility] within 3 years) Seen by Clinical Staff ONLY (RN/MA): No Reason for Visit:: BX OF RIGHT AXILLARY /U Pain Present Currently: Yes Pain Location: Unable to identify Pain scale:: 7 Computer Technical Specialist Required: No PCP or OBGYN visit in last 3 months: Yes Hx Now: No Do You Feel Safe at Home: Yes Authorities Contacted: N/A Smoking Status Smoking Status: Current some day smoker Cessation Counseling Provided: FUNMI was advised that quitting smoking is the single most important factor to protect the health of themselves and their family. Discussed the benefits of quitting smoking with patient. Encouraged patient to quit smoking and provided Cessation assistance materials and resources. Tobacco Use: Cigarette Years smoked: 30 Are you interested in quitting?: No Would you like additional Smoking Cessation Counseling?: No Immunization / Flu Flu Vaccine in the Last 12 Months: No Flu Vaccine Exclusion Criteria: Refused by Patient Past Medical History Past Medical History NEUROLOGIC: Negative Neurological Disorders or Seizures CARDIAC: Negative Cardiac Disorders or Congestive Heart Failure RESPIRATORY: Negative Chronic Obstructive Pulmonary Disease (COPD) GASTROINTESTINAL: Positive Gastrointestinal Disorders, Hepatitis (hep C), Cirrhosis and Pancreatitis GENITOURINARY: Negative Genitourinary Disorders or Renal Disease REPRODUCTIVE: Positive Breast Cancer (Right) and Previous Pregnancies; Negative Pelvic Inflammatory Disease MUSCULOSKELETAL: Positive Arthritis and Degenerative Disk Disease ENDOCRINE: Negative Endocrine Disorders, Diabetes Mellitus Type 1 or Diabetes Mellitus Type 2 HEMATOLOGIC: Positive Blood Disorders and Anemia PSYCHO/SOCIAL: Positive Recreational Drug Use OTHER HISTORY: Positive Hospitalization (breast cancer), Chicken Pox, Cancer and Breast Cancer (Right); Negative Shingles, Blood Transfusions, Blood Transfusion Reaction, Anesthesia Reactions, Organ Transplant or MRSA Family History FAMILY HISTORY: Positive Family Cardiac Disorders and Family Surgery; Negative Family Psychiatric Problems, Family Respiratory Disorders, Family Gastrointestinal Problems, Family Cancer or Family Anesthesia Reaction Surgical History SURGICAL: Positive Section (x2); Negative Cardiac Surgery, Ear Surgery, Abdominal Surgery, Nephrectomy, Joint Replacement, Neurologic Surgery, Vasectomy or Organ Transplant Social History SMOKING STATUS: Smoking status: Current some day smoker ALCOHOL: Alcohol Intake: Never HOUSING: Housing: Apartment LIVES WITH: Lives With: Alone HPI HPI Narrative 63F who presented with axillary mass s/p I&D with biopsy 04/10, followed by repeat biopsy per pathology request 04/21 here for planned follow up. Pt reports feeling well overall, she continues to pack the wound daily and notes it is draining a bit more. She received her approval for mammogram ROS Review of Systems Systems Reviewed: All systems reviewed, normal except as documented Objective/Exam General General Appearance: alert, cooperative and well groomed Chest Chest inspection: Present other (right axillary mass with no surrounding erythema, minimal necrotic tissue at base, serosanguinous drainage, packing replaced) Resp Respiratory exam: Absent respiratory distress Assessment & Plan Diagnosis / Problem List (1) Axillary mass: Status: Acute Qualifiers: Laterality: right Qualified Code(s): R22.31 - Localized swelling, mass and lump, right upper limb Assessment & Plan: 63F s/p biopsy of axillary mass 04/10 and 04/21, findings remaining inconclusive. I explained that after her mammogram and breast US she will likely require breast biopsy as well as biopsy of the liver lesion noted on CT. Pt expressed understanding and will follow up in 4 weeks Office Procedures GNS Level of Care Nursing/Assessment Patient Status: Established Patient Nursing Assessment/Reassesment: Medication Reconciliation, Update PMH in EMR and Vital Signs Coordination of Care: Complex Care and Chronic Disease 1-5, Education Complex Pt/Fam, Consent,records obtained, informed consent, 1 Ins Authorization, Results/Orders obtained and Staff clarify orders Established Patient Charge Established Patient Point Assignment: 110 Established Patient Point Charge: EP Level 3 (80-115) Patient Portal Questionaires Social History Living Situation History Housing: Apartment Tobacco History Smoking Status: Current some day smoker Alcohol History Alcohol Intake: Never Domestic Abuse History Do You Feel Safe at Home: Yes Review of Systems Report any current symptoms Only answer those that you have currently: Past Medical History Past Medical History Have you ever been diagnosed with any of the following: Neurological Problems Seizures: No Cardiology Problems Congestive Heart Failure: No Respiratory Problems Chronic Obstructive Pulmonary Disease (COPD): No Stomache/Intestinal Problems Hepatitis: Yes (hep C) Cirrhosis: Yes Pancreatitis: Yes Genital/Urinary Problems Renal Disease: No Reproductive Problems Breast Cancer: Yes (Right) Pelvic Inflammatory Disease: No Previous Pregnancies: Yes Musculoskeletal Problems Arthritis: Yes Degenerative Disk Disease: Yes Endocrine Problems Diabetes Mellitus Type 1: No Diabetes Mellitus Type 2: No Blood Problems Anemia: Yes Psychologic Problems Recreational Drug Use: Yes Other Problems Hospitalization: Yes (breast cancer) Shingles: No Blood Transfusions: No Blood Transfusion Reaction: No Anesthesia Reactions: No Organ Transplant: No MRSA: No Chicken Pox: Yes Cancer: Yes
[2024-04-26 14:53] VITALS: BP 125/68; PULSE 93; RESP 19; TEMP 35.8; O2SAT 100; BMI 20.7
== END 2024-04-26 15:16 | disposition home or self-care (01) ==
LOC: HODSRG 14:41
PROVIDERS: PCP Internal Medicine; Referring Provider Internal Medicine; Supervising Provider Surgery; Visit Provider Surgery
DX: R22.31 Localized swelling, mass and lump, right upper limb (principal)
CPT/HCPCS: 99213; G0463

== ENCOUNTER 2024-06-03 11:41 | Outpatient (AMB) | payer OTHER, MEDICAID, SELFPAY ==
[2024-06-03 11:49] VITALS: BP 138/73; PULSE 87; RESP 19; TEMP 36.3; O2SAT 97; BMI 20.2
--- NOTE | 2024-06-03 11:49 | PD.GSCLVISIT ---
Vital Signs - [facility] 06/03/24 11:49 Height 1.68 m Height Method Stated Weight 57.323 kg Weight Measurement Method Standing Scale BMI 20.2 BP 138/73 H Blood Pressure Source Automatic Cuff Blood Pressure Location Right Upper Arm Position Sitting Respiration 19 Pulse 87 Pulse Source Monitor Temp 97.3 F Temp Source Temporal Artery Scan Pulse Oximetry (%) 97 Oxygen Delivery Method Room Air Med/Allergies Allergies & Medications Allergies No Known Allergies Allergy (Verified 06/03/24 11:50) Medication Reconciliation ibuprofen 600 mg tablet 600 mg PO Q6H #30 tabs 04/06/24 [Rx Confirmed 06/03/24] ferrous sulfate 325 mg (65 mg iron) tablet,delayed release 325 mg PO Q48H 30 days #15 tabs 04/12/24 [Rx Confirmed 06/03/24] mupirocin 2 % topical ointment 1 applic topical BID #15 grams 06/03/24 [Rx] MA Intake Visit Data Collection New Patient or Established: Established Patient (seen at [facility] within 3 years) Reason for Visit:: Follow up Pain Present Currently: Yes Pain scale:: 7 Pain Scale Used: Crespo-Grijalva/Numerical Roving Teller Required: No PCP or OBGYN visit in last 3 months: Yes Hx Now: No Do You Feel Safe at Home: Yes Authorities Contacted: N/A Smoking Status Smoking Status: Current some day smoker Cessation Counseling Provided: FUNMI was advised that quitting smoking is the single most important factor to protect the health of themselves and their family. Discussed the benefits of quitting smoking with patient. Encouraged patient to quit smoking and provided Cessation assistance materials and resources. Tobacco Use: Cigarette Years smoked: 10 Are you interested in quitting?: No Immunization / Flu Flu Vaccine in the Last 12 Months: No Flu Vaccine Exclusion Criteria: No Exclusion Criteria Past Medical History Past Medical History NEUROLOGIC: Negative Neurological Disorders or Seizures CARDIAC: Negative Cardiac Disorders or Congestive Heart Failure RESPIRATORY: Negative Chronic Obstructive Pulmonary Disease (COPD) GASTROINTESTINAL: Positive Gastrointestinal Disorders, Hepatitis (hep C), Cirrhosis and Pancreatitis GENITOURINARY: Negative Genitourinary Disorders or Renal Disease REPRODUCTIVE: Positive Breast Cancer (Right) and Previous Pregnancies; Negative Pelvic Inflammatory Disease MUSCULOSKELETAL: Positive Arthritis and Degenerative Disk Disease ENDOCRINE: Negative Endocrine Disorders, Diabetes Mellitus Type 1 or Diabetes Mellitus Type 2 HEMATOLOGIC: Positive Blood Disorders and Anemia PSYCHO/SOCIAL: Positive Recreational Drug Use OTHER HISTORY: Positive Hospitalization (breast cancer), Chicken Pox, Cancer and Breast Cancer (Right); Negative Shingles, Blood Transfusions, Blood Transfusion Reaction, Anesthesia Reactions, Organ Transplant or MRSA Family History FAMILY HISTORY: Positive Family Cardiac Disorders and Family Surgery; Negative Family Psychiatric Problems, Family Respiratory Disorders, Family Gastrointestinal Problems, Family Cancer or Family Anesthesia Reaction Surgical History SURGICAL: Positive Section (x2); Negative Cardiac Surgery, Ear Surgery, Abdominal Surgery, Nephrectomy, Joint Replacement, Neurologic Surgery, Vasectomy or Organ Transplant Social History SMOKING STATUS: Smoking status: Current some day smoker ALCOHOL: Alcohol Intake: Never HOUSING: Housing: Apartment LIVES WITH: Lives With: Alone HPI HPI Narrative 63F who presented with axillary mass s/p I&D with biopsy 04/10, followed by repeat biopsy per pathology request 04/21 here for planned follow up. Pt reports feeling well overall, her axillary wound has fully healed and she has no drainage from there. She is having drainage from both of her lower legs, she is elevating them as much as possible and has an appt at wound healing later this month. Pt states she went for her PET CT but was informed she did not have approval ROS Review of Systems Systems Reviewed: All systems reviewed, normal except as documented Objective/Exam General General Appearance: alert, cooperative and well groomed Chest Chest inspection: Present other (right axillary wound healed with no erythema, no fluctuance or drainage) Resp Respiratory exam: Absent respiratory distress Assessment & Plan Diagnosis / Problem List (1) Axillary mass: Status: Acute Qualifiers: Laterality: right Qualified Code(s): R22.31 - Localized swelling, mass and lump, right upper limb Assessment & Plan: 63F who presented with axillary mass s/p I&D with biopsy 04/10, followed by repeat biopsy per pathology request 04/21 here for planned follow up. We confirmed her mammogram, breast US and PET CT were authorized by her insurance and advised pt to make an appt for each of these exams today, will follow up after Office Procedures GNS Level of Care Nursing/Assessment Patient Status: Established Patient Nursing Assessment/Reassesment: Medication Reconciliation, Update PMH in EMR and Vital Signs Coordination of Care: Complex Care and Chronic Disease 1-5, Education Complex Pt/Fam, Consent,records obtained, informed consent, Lab and Imaging orders, Results/Orders obtained and Staff clarify orders Established Patient Charge Established Patient Point Assignment: 110 Established Patient Point Charge: EP Level 3 (80-115) Patient Portal Questionaires Social History Living Situation History Housing: Apartment Tobacco History Smoking Status: Current some day smoker Alcohol History Alcohol Intake: Never Domestic Abuse History Do You Feel Safe at Home: Yes Review of Systems Report any current symptoms Only answer those that you have currently: Past Medical History Past Medical History Have you ever been diagnosed with any of the following: Neurological Problems Seizures: No Cardiology Problems Congestive Heart Failure: No Respiratory Problems Chronic Obstructive Pulmonary Disease (COPD): No Stomache/Intestinal Problems Hepatitis: Yes (hep C) Cirrhosis: Yes Pancreatitis: Yes Genital/Urinary Problems Renal Disease: No Reproductive Problems Breast Cancer: Yes (Right) Pelvic Inflammatory Disease: No Previous Pregnancies: Yes Musculoskeletal Problems Arthritis: Yes Degenerative Disk Disease: Yes Endocrine Problems Diabetes Mellitus Type 1: No Diabetes Mellitus Type 2: No Blood Problems Anemia: Yes Psychologic Problems Recreational Drug Use: Yes Other Problems Hospitalization: Yes (breast cancer) Shingles: No Blood Transfusions: No Blood Transfusion Reaction: No Anesthesia Reactions: No Organ Transplant: No MRSA: No Chicken Pox: Yes Cancer: Yes
== END 2024-06-03 12:00 | disposition home or self-care (01) ==
LOC: HODSRG 11:41
PROVIDERS: PCP Internal Medicine; Referring Provider Internal Medicine; Supervising Provider Surgery; Visit Provider Surgery
DX: Z48.3 Aftercare following surgery for neoplasm (principal)
CPT/HCPCS: 99213; G0463

== ENCOUNTER 2024-12-18 04:45 | Inpatient (IN) | payer OTHER, MEDICAID, MEDICARE, SELFPAY ==
[2024-12-18] VITALS (11 sets, daily range): BP systolic 85–118; BP diastolic 54–73; PULSE 62–102; RESP 12–90; TEMP 36.2–36.6; O2SAT 94–100; BMI 19.4
--- NOTE | 2024-12-18 05:35 | EKG_ITS ---
[facility] Test Date: 2024-12-18 Pat Name: FUNMI MAYES Department: Room: - Gender: Female Donations Attendant: : 1960 Requested By: Checo Johnson Order Number: [id number] Reading MD: Checo Johnson Measurements Intervals Icard Rate: 93 P: 4 NH: 149 QRS: -16 QRSD: 88 T: 30 QT: 337 QTc: 421 Interpretive Statements SINUS RHYTHM LOW QRS VOLTAGE IN EXTREMITY LEADS [QRS DEFLECTION < 0.5 mV IN LIMB LEADS] POSSIBLE ANTERIOR MYOCARDIAL INFARCTION , PROBABLY OLD [30 ms Q WAVE IN V3/V4, OR R < 0.2 mV IN V4] Compared to ECG 04/20/2024 08:33:06 Low QRS voltage now present Myocardial infarct finding still present /store/S0/[id number]
[2024-12-18 06:24] LABS: Basophils # (Auto) 0.0 Thou/mm3 (0.0-0.2); Basophils % (Auto) 0 % (0-2.5); Eosinophils # (Auto) 0.0 Thou/mm3 (0.0-0.5); Eosinophils % (Auto) 0 % (0-10); Hematocrit 37.0 % (36.0-46.0); Hemoglobin 12.0 g/dL (12.0-16.0); Immature Granulocytes Auto 0.12 Thou/mm3 (0.00-0.00); Lymphocytes # (Auto) 0.5 Thou/mm3 (1.0-4.8); Lymphocytes % (Auto) 4 % (10-50); Mean Corpuscular HGB Conc 32.4 g/dl (31.0-37.0); Mean Corpuscular Hemoglobin 26.1 pg (25.0-35.0); Mean Corpuscular Volume 81 fL (80-100); Monocytes # (Auto) 0.8 Thou/mm3 (0.0-0.8); Monocytes % (Auto) 7 % (0-12); Neutrophils # (Auto) 11.1 Thou/mm3 (1.8-7.7); Neutrophils % (Auto) 88 % (37-80); Nucleated Red Blood Cell # 0.00 Thou/mm3 (0.00-0.00); Nucleated Red Blood Cell % 0 /100 WBC (0); Platelet Count 342 Thou/mm3 (140-440); RDW Standard Deviation 50.6 fL (36.4-46.3); Red Blood Count 4.59 Miln/mm3 (4.00-5.20); White Blood Count 12.5 Thou/mm3 (3.6-11.0)
[2024-12-18 06:33] LABS: Alanine Aminotransferase 31 U/L (10-49); Albumin, Serum 2.7 gm/dL (3.4-4.8); Albumin/Globulin Ratio 0.7 (1.2-2.2); Alkaline Phosphatase 104 U/L (46-116); Anion Gap 11 (7-16); Aspartate Amino Transferase 85 U/L (0-34); BUN/Creatinine Ratio 34 Ratio (12-20); Bilirubin,Total 0.6 mg/dL (0.3-1.2); Blood Urea Nitrogen 31 mg/dL (9-23); Calcium 9.1 mg/dL (8.3-10.6); Calcium (Corrected) 10.1 mg/dL (8.5-10.1); Carbon Dioxide 26.7 mMol/L (20.0-31.0); Chloride 91 mMol/L (98-107); Creatinine (Component) 0.9 mg/dL (0.6-1.3); Globulin 3.8 gm/dL (2.3-3.5); Glucose 110 mg/dL (74-106); Lipase 20 U/L (12-53); Magnesium 1.9 mg/dL (1.6-2.6); Osmolality,Calculated 266 (275-295); Potassium 4.9 mMol/L (3.4-5.1); Sodium 129 mMol/L (136-145); Total Protein 6.5 gm/dL (5.7-8.2); eGFR > 60 See Note
--- NOTE | 2024-12-18 08:01 | EDNOTE_ITS ---
ED General RME/HPI General Chief complaint: Abdominal Pain Stated complaint: ABD PAIN Time Seen by Provider: 12/18/24 07:16 Arrival date/time: 12/18/24 04:45 RME / HPI RME / HPI narrative: DR. MYERS MAIN ED EVALUATION: 64-year-old female with history of pancreatitis, hepatitis C, polysubstance use disorder, and prior alcohol use presents accompanied by her foster sister for evaluation of progressive weakness and inability to walk due to swelling, redness, and skin breakdown of both legs with purulent drainage. Patient also complains of back pain 1-2 months. She has experienced significant weight loss and appears cachectic. She recently underwent a right axillary biopsy by Dr. Emmanuel as part of a workup for suspected malignancy. Prior CT scan in April demonstrated a liver lesion with concern for breast masses and possible metastatic breast cancer. No known allergies. Related Data Previous Rx's ?Medication ?Instructions ?Recorded ibuprofen 600 mg tablet 600 mg PO Q6H #30 tabs 04/06 ferrous sulfate 325 mg (65 mg 325 mg PO Q48H 30 days # 15 tabs 04/12/24 iron) tablet,delayed release mupirocin 2 % topical ointment 1 applic topical BID #1 5 grams 06/03/24 Allergies Allergy/AdvReac Type Severity Reaction Status Date / Time No Known Allergies Allergy Verified 06/03/24 11:50 Review of Systems Review of Systems Systems Reviewed: All systems reviewed, normal except as documented Past Medical History Past Medical History RESPIRATORY: Positive Asthma GASTROINTESTINAL: Positive Gastrointestinal Disorders, Hepatitis (hep C), Cirrhosis and Pancreatitis REPRODUCTIVE: Positive Breast Cancer (Right) and Previous Pregnancies MUSCULOSKELETAL: Positive Musculoskeletal Disorders, Arthritis and Degenerative Disk Disease HEMATOLOGIC: Positive Blood Disorders and Anemia PSYCHO/SOCIAL: Positive Recreational Drug Use OTHER HISTORY: Positive Hospitalization (breast cancer), Chicken Pox, Cancer and Breast Cancer (Right) Family History FAMILY HISTORY: Positive Family Cardiac Disorders and Family Surgery Surgical History SURGICAL: Positive Section Social History SMOKING STATUS: Former smoker SUBSTANCE USE: does not use ALCOHOL: Never ED Exam Narrative Physical exam: Physical Exam: General: The vital signs were reviewed. Patient is cachectic blood pressure 109 systolic the patient is non-toxic, in no apparent distress and appears healthy with a patent airway, no respiratory distress and has no apparent circulatory problems. Head & Scalp: Normocephalic, atraumatic. Face: Temporal wasting appears normal and is without lesions, deformity. Ears: Left external pinna appears normal. Right external pinna appears normal. Eyes: The sclera is anicteric. No obvious photophobia. The Left and Right Orbit/Lid/Conjunctiva appears normal without swelling, discoloration or injection. Nose: The nose is without deformity, discharge or tenderness; Throat: Appears normal. The mucous membranes are pink and moist without exudates, redness or mass seen. The tongue appears normal. Neck: Is multiple bilateral firm nodules and lymphadenopathy most likely neoplastic Chest: Breast exam was done and there is no dominant mass felt in the bilateral masses but there is obvious axillary adenopathy significant size and firmness. Nontender there is no redness or the chest wall is normal in size and symmetry and has no chest wall tenderness or crepitus. The patient displays normal ventilator effort without retractions, accessory muscle use and has adequate air movement bilaterally with no wheezes and no rales. Cardiovascular: Regular rate and rhythm; No murmurs, rubs, or gallops; Gastrointestinal: The abdomen appears protuberant it is kind of firm vague tenderness abdomen is not soft there is possible fluid or masses in the abdominal cavity. There is no obvious guarding. Genitourinary: Back/Spine: She has back pain but normal inspection Extremities/Musculoskeletal/lymphatic: The bilateral upper and lower extremities are warm. There is chronic redness and lymphangitic changes with pus draining from the breakdown of the skin bilateral anterior legs or lower legs. There is no evidence of arterial insufficiency. There is chronic lymphedematous changes The patient spontaneously moves bilateral upper and lower extremities with no pain and no limitation of movement. There is no apparent, injury or trauma. Skin: The skin is warm, dry and intact. No rashes. No petechia. No purpura. No abnormal bruising. The color is appropriate with no cyanosis. Mental status/Psychiatric: Mental status is appropriate for age. The patient has no apparent delusions, visual hallucinations, no apparent audible hallucinations. The patient has no apparent suicidal thoughts/ideation and no apparent homi cidal thoughts/ideation. Neurological: The patient is awake, alert, interactive, cordial, cooperative and is oriented to name and situation. The patient follows commands and answers historical question with no impairment. There is no visual disturbance apparent. The pupils are equal and reactive bilaterally with normal eye movements and no diplopia The bilateral upper and lower extremities have normal strength, normal range of motion and normal functioning. The gait, station and balance were not tested due to acuity Course Quality Measures none Orders Category Date Time Status CT Screening NOW Care 12/18/24 08:04 Active EKG (ED ONLY) *Do not use* NOW Care 12/18/24 05:[address] chest abdomen pelvis w Stat Exams 12/18/24 08:[address] head/brain wo/w con Stat Exams 12/18/24 08:[address] soft tissue neck w con Stat Exams 12/18/24 08:04 Completed EKG (ED Only) Stat Exams 12/18/24 05:35 Draft CBC Stat Lab 12/18/24 05:50 Completed Comprehensive Metabolic Panel Stat Lab 12/18/24 05:50 Completed Drug Screen,Urine Stat Lab 12/18/24 09:17 Completed Lipase Stat Lab 12/18/24 05:50 Completed Magnesium Stat Lab 12/18/24 05:50 Completed Urinalysis Stat Lab 12/18/24 09:17 Completed Sodium Chloride 0.9% 1000 ml [Ns] 1,000 ml Med 12/18/24 08:05 Active IV 150 mls/hr Sodium Chloride 0.9% 1000 ml [Ns] 1,000 ml Med 12/18/24 08:05 Discontinued IV 999 mls/hr fentaNYL INJ [Sublimaze Inj] Med 12/18/24 08:16 Discontinued 50 mcg IVP X1 ONE Vital Signs Vital signs: Vital Signs Temperature 97.1 F 12/18/24 05:01 Pulse Rate 90 12/18/24 05:01 Respiratory Rate 16 12/18/24 05:01 Blood Pressure 118/73 12/18/24 05:01 Pulse Oximetry (%) 95 12/18/24 05:01 Oxygen Delivery Method Room Air 12/18/24 05:01 Discharge Plan Plan Patient Disposition: Admit Acute Care w/in Hospital Discharge Disposition comment: Hospitalist to admit Prescriptions/Referrals Prescriptions/Med Rec: No Action mupirocin 2 % ointment 1 applic topical BID Qty: 15 0RF ibuprofen 600 mg tablet 600 mg PO Q6H Qty: 30 0RF ferrous sulfate 325 mg (65 mg iron) Tablet,Delayed Release (Dr/Ec) 325 mg PO Q48H 30 Days Qty: 15 1RF Referrals: No Primary/Family,Physician [Primary Care Provider] - In 1 week Problem List Clinical Impression: Metastatic cancer, Weakness, Infection associated with lymphedema, Lymphadenopathy, Brain stem lesion, Ascites, Liver mass, Bilateral pneumonia, Abnormal weight loss Patient/Caregiver Discharge Instructions Print Language: Czech Stand Alone Forms: Palma Award Info., Patient Portal Info Letter MDM Narrative [facility] hospital course: Patient comes in with increasing weakness unable to walk swelling redness to her legs with breakdown of the skin and purulent discharge but most impressively she has weight loss she is cachectic she has got bilateral lymphadenopathy involving her neck and axilla and a CT scan this past April that revealed a liver lesion concern for breast masses and concern for possible metastatic breast cancer. Patient notes today that her breasts are actually normalized but her abdomen is where she is got poor appetite and unable to drink or eat much. Her initial BUN/creatinine shows an elevated BUN consistent with prerenal azotemia and dehydration At this time organ to hydrate her regular scanner to better understand the extent of her neoplastic disease. She will need to be admitted for unable to walk dehydration and possible hospice placement. CT scans came back with multiple abnormalities CT soft tissue neck reveals extensive bulky cervical and supraclavicular metastatic lymphadenopathy and there is concerns for osseous metastatic disease mention. CT of the chest abdomen pelvis again has multiple areas of lymphadenopathy large necrotic carotid triangle lymph nodes left chest mass axillary lymphadenopathy is noted bilaterally. There is mild to moderate bilateral pleural effusions there is atelectasis versus pneumonia in the lung bases she has cirrhosis. There is a large right lateral lobe enhancing liver mass. There is lymphadenopathy in the chest and abdomen. There is malignant ascites and concerns for diffuse osteoblastic metastatic disease. Bottom line is we have a cachectic lady who is losing weight he is got extensive lymphadenopathy and masses in the liver and lung with ascites problem pneumonia as bilateral lymph edema stasis with pussy purulent legs who is too weak to care for self at this time. She is also having problems swallowing. Hospitalist was called in a very long discussion and they will be admitting the patient. Lu Frank am scribing for and in the presence of Dr. Myers. Clinical Information Provided by patient and family Medical Records Reviewed [facility] Meds/Rx Considered, not Ordered None Labs/Rad/Tests considered, not Ordered None Chronic Illness/Social Conditions Add or document further as needed: Pancreatitis, hepatitis C, polysubstance use disorder, and prior alcohol use. She recently underwent a right axillary biopsy by Dr. Emmanuel as part of a workup for suspected malignancy. Prior CT scan in April demonstrated a liver lesion with concern for breast masses and possible metastatic breast cancer. No known allergies. EKG EKG Interpretation narrative: My interpretation: EKG performed at 0559 hours, sinus rhythm, rate 93, no STEMI Lab Interpretation Labs: see narrative above Imaging Imaging interpretation: see narrative above Radiology reports / interpretation(s): Procedure(s): CT soft tissue neck w con Accession Number(s): [id number] cc: Ronnie Myers MD; Edgar Villaseñor MD; NO PRIMARY/FAMILY,PHYSICIAN~ Examination: CT soft tissue neck, with intravenous contrast. 2-D coronal reconstructions. 2-D sagittal reconstructions. Date and time of exam :December 17, 2024, 0950 hours INDICATIONS: Breast carcinoma diagnosis with palpable neck lumps. CTDI: vol (mGy):15.8 DLP: (mGycm):338 Technique: 1.25 mm axial sections of the neck of the obtained. Coronal and sagittal reconstructions have been obtained. Intravenous contrast administered 40 cc Isovue-370. Low dose protocols were performed. One or more of the following dose reduction techniques were used; automated exposure control, adjustment of the mA and/or KV according to patient size, use of iterative reconstruction technique. Findings: Extensive necrotic carotid triangle and soft tissue lateral neck lymphadenopathy, lymph nodes measuring up to 23 mm in dimension Pathologic submental lymph nodes, the largest on the right side 19 mm Pathologic posterior cervical lymphadenopathy, the largest node on the left side 25 mm Symmetrical oropharynx The larynx appears normal Thyroid lobes exhibit symmetry Prominent bilateral supraclavicular lymph node masses, the largest on the left side 4 cm Normal epiglottis The visualized cervical vertebral bodies exhibit sclerosis IMPRESSION: Extensive bulky cervical and supraclavicular metastatic lymphadenopathy Suspicious for osseous metastatic disease Dictated By: Edgar Villaseñor MD Procedure(s): CT chest abdomen pelvis w Accession Number(s): [id number] cc: Ronnie Myers MD; Edgar Villaseñor MD; NO PRIMARY/FAMILY,PHYSICIAN~ Examination: CT chest with intravenous contrast CT abdomen with intravenous contrast CT pelvis with intravenous contrast 2-D coronal and sagittal reconstructions Time of exam: December 18, 2024, 1002 hours Comparison April 11, 2024 INDICATIONS: Diagnosis breast cancer, chest abdomen and back pain several days CTDI: vol (mGy) : 8.81 DLP: (mGycm): 602 Technique: Multiple axial images of the chest, abdomen and pelvis with intravenous contrast, 3.0 mm slice thickness. Images obtained post intravenous injection Isovue 370 60 cc. 2-D sagittal and coronal reconstructions. Low dose protocols were performed. One or more of the following dose reduction techniques were used; automated exposure control, adjustment of the mA and/or KV according to patient size, use of iterative reconstruction technique. Findings: Large necrotic carotid triangle lymph nodes partially visualized Necrotic supraclavicular eric mass on the left, axial image 24, measuring 4 cm Left chest mass axial image 46 contiguous to the chest wall, 13 mm Bulky left axillary lymphadenopathy, the largest lymph node mass 34 mm No thoracic aortic aneurysmal dilatation or dissection No pulmonary artery emboli on this non-CTA study High left para-aortic right tracheobronchial aortopulmonary window, precarinal subcarinal and right hilar lymphadenopathy, the largest eric mass is subcarinal measuring 35 mm Atelectasis versus pneumonia at the lung bases Mild to moderate bilateral pleural effusions Cirrhosis, liver irregular in contour Right lateral lobe liver enhancing metastasis, 31 mm No gallstones Significant ascites Mass of eric hepatis mesenteric paracaval and periaortic lymphadenopathy, the para-aortic adenopathy measuring at least 8 x 10 cm in dimension Common bile duct 7 mm No definite pancreatic mass Abdominal aorta is not enlarged No hydronephrosis Possible renal calculi, assessment is difficult with contrast No bowel obstruction No iliac lymphadenopathy Atrophic uterus No bladder mass Advanced degenerative disc disease L5-S1 The osseous structures are mildly diffusely sclerotic IMPRESSION: Extensive metastatic cervical, left supraclavicular and mediastinal lymphadenopathy Atelectasis versus pneumonia at the lung bases Left chest mass and bulky left axillary lymphadenopathy Extensive mediastinal lymphadenopathy 31 mm of hepatic metastasis Extensive abdominal and pelvic lymphadenopathy. Prominent malignant ascites Suspicious for diffuse osteoblastic metastatic disease Dictated By: Edgar Villaseñor MD Procedure(s): CT head/brain wo/w con Accession Number(s): [id number] cc: Ronnie Myers MD; Edgar Villaseñor MD; NO PRIMARY/FAMILY,PHYSICIAN~ Examination: CT brain head without contrast. CT brain with intravenous contrast 2-D sagittal reconstructions. 2-D coronal reconstructions. Date and time of exam:December 18, 2024 0948 hours INDICATION: Breast cancer diagnosis, altered mental status this morning CTDI: vol (mGy): 90.9 DLP: (mGycm):1971 Technique: Axial sections of the brain have been obtained, pre and post intravenous administration 50 cc Isovue-370 5 mm slice thickness images have been obtained. Low dose protocols were performed. One or more of the following dose reduction techniques were used; automated exposure control, adjustment of the mA and/or KV according to patient size, use of iterative reconstruction technique. Findings: Ventricles normal size and configuration. No mass effect upon the ventricular system No effacement cortical sulcal markings No abnormal enhancing cerebellar or cerebral lesions Cranial vault is mildly diffusely sclerotic Axial image 30 demonstrates 8 mm low-density area in the left brainstem pontine level IMPRESSION: No abnormal enhancing cerebellar or cerebral lesions 8 mm low-density lesion left brain stem consistent with infarct which may be old, clinical correlation advised If acute infarct is a clinical consideration, suggest brain MRI follow-up Dictated By: Edgar Villaseñor MD Medication Administration(s) Medication Administration History Sodium Chloride (Ns) 1,000 mls @ 150 mls/hr IV .[id number] ONE Stop: 12/18/24 14:44 Discontinued Medications Fentanyl Citrate (Fentanyl Cit Inj 50 Mcg/Ml Amp 2ml) 50 mcg IVP X1 ONE Stop: 12/18/24 08:17 Last Admin: 12/18/24 11:10 Dose: 50 mcg Documented By: CHARLOTTE Sodium Chloride (Ns) 1,000 mls @ 999 mls/hr IV .Q1H1M ONE Stop: 12/18/24 09:05 Last Admin: 12/18/24 11:13 Dose: 999 mls/hr Documented By: CHARLOTTE Diagnosis Differential diagnosis: metastatic breast cancer, cellulitis, lymphedema secondary to malignancy Dispositon Disposition: Admit
--- NOTE | 2024-12-18 08:04 | XR_ITS ---
Examination: CT soft tissue neck, with intravenous contrast. 2-D coronal reconstructions. 2-D sagittal reconstructions. Date and time of exam :December 17, 2024, 0950 hours INDICATIONS: Breast carcinoma diagnosis with palpable neck lumps. CTDI: vol (mGy):15.8 DLP: (mGycm):338 Technique: 1.25 mm axial sections of the neck of the obtained. Coronal and sagittal reconstructions have been obtained. Intravenous contrast administered 40 cc Isovue-370. Low dose protocols were performed. One or more of the following dose reduction techniques were used; automated exposure control, adjustment of the mA and/or KV according to patient size, use of iterative reconstruction technique. Findings: Extensive necrotic carotid triangle and soft tissue lateral neck lymphadenopathy, lymph nodes measuring up to 23 mm in dimension Pathologic submental lymph nodes, the largest on the right side 19 mm Pathologic posterior cervical lymphadenopathy, the largest node on the left side 25 mm Symmetrical oropharynx The larynx appears normal Thyroid lobes exhibit symmetry Prominent bilateral supraclavicular lymph node masses, the largest on the left side 4 cm Normal epiglottis The visualized cervical vertebral bodies exhibit sclerosis IMPRESSION: Extensive bulky cervical and supraclavicular metastatic lymphadenopathy Suspicious for osseous metastatic disease
--- NOTE | 2024-12-18 08:04 | XR_ITS ---
Examination: CT chest with intravenous contrast CT abdomen with intravenous contrast CT pelvis with intravenous contrast 2-D coronal and sagittal reconstructions Time of exam: December 18, 2024, 1002 hours Comparison April 11, 2024 INDICATIONS: Diagnosis breast cancer, chest abdomen and back pain several days CTDI: vol (mGy) : 8.81 DLP: (mGycm): 602 Technique: Multiple axial images of the chest, abdomen and pelvis with intravenous contrast, 3.0 mm slice thickness. Images obtained post intravenous injection Isovue 370 60 cc. 2-D sagittal and coronal reconstructions. Low dose protocols were performed. One or more of the following dose reduction techniques were used; automated exposure control, adjustment of the mA and/or KV according to patient size, use of iterative reconstruction technique. Findings: Large necrotic carotid triangle lymph nodes partially visualized Necrotic supraclavicular eric mass on the left, axial image 24, measuring 4 cm Left chest mass axial image 46 contiguous to the chest wall, 13 mm Bulky left axillary lymphadenopathy, the largest lymph node mass 34 mm No thoracic aortic aneurysmal dilatation or dissection No pulmonary artery emboli on this non-CTA study High left para-aortic right tracheobronchial aortopulmonary window, precarinal subcarinal and right hilar lymphadenopathy, the largest eric mass is subcarinal measuring 35 mm Atelectasis versus pneumonia at the lung bases Mild to moderate bilateral pleural effusions Cirrhosis, liver irregular in contour Right lateral lobe liver enhancing metastasis, 31 mm No gallstones Significant ascites Mass of eric hepatis mesenteric paracaval and periaortic lymphadenopathy, the para-aortic adenopathy measuring at least 8 x 10 cm in dimension Common bile duct 7 mm No definite pancreatic mass Abdominal aorta is not enlarged No hydronephrosis Possible renal calculi, assessment is difficult with contrast No bowel obstruction No iliac lymphadenopathy Atrophic uterus No bladder mass Advanced degenerative disc disease L5-S1 The osseous structures are mildly diffusely sclerotic IMPRESSION: Extensive metastatic cervical, left supraclavicular and mediastinal lymphadenopathy Atelectasis versus pneumonia at the lung bases Left chest mass and bulky left axillary lymphadenopathy Extensive mediastinal lymphadenopathy 31 mm of hepatic metastasis Extensive abdominal and pelvic lymphadenopathy. Prominent malignant ascites Suspicious for diffuse osteoblastic metastatic disease
--- NOTE | 2024-12-18 08:04 | XR_ITS ---
Examination: CT brain head without contrast. CT brain with intravenous contrast 2-D sagittal reconstructions. 2-D coronal reconstructions. Date and time of exam:December 18, 2024 0948 hours INDICATION: Breast cancer diagnosis, altered mental status this morning CTDI: vol (mGy): 90.9 DLP: (mGycm):1971 Technique: Axial sections of the brain have been obtained, pre and post intravenous administration 50 cc Isovue-370 5 mm slice thickness images have been obtained. Low dose protocols were performed. One or more of the following dose reduction techniques were used; automated exposure control, adjustment of the mA and/or KV according to patient size, use of iterative reconstruction technique. Findings: Ventricles normal size and configuration. No mass effect upon the ventricular system No effacement cortical sulcal markings No abnormal enhancing cerebellar or cerebral lesions Cranial vault is mildly diffusely sclerotic Axial image 30 demonstrates 8 mm low-density area in the left brainstem pontine level IMPRESSION: No abnormal enhancing cerebellar or cerebral lesions 8 mm low-density lesion left brain stem consistent with infarct which may be old, clinical correlation advised If acute infarct is a clinical consideration, suggest brain MRI follow-up
[2024-12-18 10:04] LABS: Collection Type, Urine Clean Catch; RBC,Urine 0 /hpf (0-3); Squamous Epithelial Cell,Urine 0 /hpf (0-5); WBC,Urine 0 /hpf (0-5)
[2024-12-18 10:39] LABS: Bilirubin,Urine Negative (Negative); Blood,Urine Negative (Negative); Clarity,Urine Clear (Clear/Hazy); Color,Urine Yellow (Lt Yel-Yel); Glucose, Urine Negative (Negative); Ketones,Urine Negative (Negative); Leukocyte Esterase,Urine Negative (Negative); Nitrite,Urine Negative (Negative); PH,Urine 5.5 (5.0-7.0); Protein,Urine Negative (Neg - Trace); Specific Gravity,Urine 1.025 (1.001-1.035); Urobilinogen,Urine Negative mg/dL (0.0-1.0)
[2024-12-18 10:40] LABS: Amphetamine/Methamp Scrn,U Positive (Negative); Barbiturate Screen,Urine Negative (Negative); Benzodiazepines Screen,Urine Negative (Negative); Benzoylecgonine Screen, Ur Negative (Negative); Fentanyl Screen,Urine Positive (Negative); Opiate Screen,Urine Positive (Negative); THC Screen,Urine Negative (Negative)
[2024-12-18 11:02] LABS: Hyaline Casts,Urine < 1 /hpf (0-1)
[2024-12-18] MEDS: fentaNYL CIT INJ 50 mCg/ML AMP 2ML IVP (11:10)
[2024-12-18] MEDS: SODIUM CHLORIDE 0.9% 1000 ML 1,000 ML 999 ML IV ×2 (11:13→14:57)
[2024-12-18] MEDS: SODIUM CHLORIDE 0.9% 1000 ML 1,000 ML 150 ML IV (12:57)
[2024-12-18 13:26] LABS: Lactate (Lactic Acid) 2.9 mMol/L (0.4-2.0)
--- NOTE | 2024-12-18 13:45 | PC.NURSE ---
Dr Myers made aware of patient BP, orders for maintenance IVF to bolus until done.
--- NOTE | 2024-12-18 14:05 | ESHP_ITS ---
<Statement entered by Ernie Horta MD - 12/22/24 14:37> I reviewed above note and agree with findings and plans. I have also personally examined the patient with medicine team and went over assessment and plan with medical team including purchasing intern and resident physician. <Statement entered by Mio Tolentino MD - 12/18/24 18:01> Patient was seen and examined at bedside. I agree on the assessment and plan on this note as documented by resident Cyril Verdugo PGY1. Ms. Asif is a 64-year-old female with past medical history of necrotic lymphadenopathy likely secondary to malignancy hepatitis C, polysubstance use and prior history of alcohol use who presented to [facility] emergency department today with a chief complaint of abdominal pain and back pain. Patient evaluated in the ED, in significant pain and somnolent unable to provide good history, did have purulent lesions bilateral lower extremities with yellowish-green exudate, patient was hypotensive upon evaluation however did not meet SIRS criteria, did have elevated leukocytosis we will start patient on IV Zosyn and doxycycline for Pseudomonas and MRSA coverage. Bedside ultrasound assessment showed IVC diameter 1.8 cm, IVC greater than 50% collapsible. No suspicion of pericardial effusion, no gross regional wall abnormality noted on bedside echocardiogram though there is suspicion of some heart failure. Patient was hypotensive in the emergency department with MAP 67, received 3 L total IV fluids, lactate 2.9 repeat is pending. Signed out to night team to follow-up. For underlying extensive lymphadenopathy which is suspicious of malignancy we will consult oncology and general surgery, patient likely needs solid tissue biopsy, pending general surgery evaluation. Patient does have malignant ascites, on bedside ultrasound fibrinous exudate seen, we will schedule patient for paracentesis however will likely receive it on Friday morning. For underlying JUANJOSE, baseline creatinine 0.5, will monitor in a.m. patient did receive IV fluids. For dysphagia bedside swallow screen passed, started on clear liquid diet, pending speech therapy evaluation. Disposition telemetry, patient verbalized clearly in presence of ED nurse that she wants her CODE STATUS to be DNR/DNI. Case discussed with attending Dr. Rula Tolentino MD PGY-2 Documentation for date of: 12/18/24 HPI History of Present Illness History of present illness: Mrs. Asif is a 64 year old female with a history of pancreatitis, hep C, polysubstance use, and prior alcohol use who presents to [facility] ED on 12/18 due to increasing abdominal pain and back pain. During the encounter, the patient was somnolent and complaining of back pain, so history taken from her was limited. The patient stated that she had swelling of her stomach and back pain that started about a few weeks ago along with a 25 pound weight loss that started maybe about a few months ago, but the patient is unsure. The patient decided to seek help at [facility] ED because her abdominal pain and back pain were getting worse in addition to generalized weakness. The patient had extensive swelling of her legs bilaterally, but her thighs are noticeably thin. On both of her lower legs, where the swelling is present, the patient has significant skin breakdown with purulent drainage. The patient has extensive and large lymphadenopathy around her jaw, neck, and axillary regions. The patient states that she has trouble swallowing, as if food gets stuck in the middle of her esophagus. The patient states that she does not have a oncologist, and stated that when she tried to schedule an appointment with one, they mixed up the dates and then pushed her back. The patient was unable to clarify on when these dates were. Upon chart review, the patient was admitted for management of a mass in the right axillary region which started sometime in March 2024. The patient underwent I&D by Dr. Emmanuel, which drained 20 cc of pus. The pus did not grow any organisms on culture. CT chest/abdomen/pelvis at the time showed enlarged edematous right breast with poorly defined masses and extensive right axillary lymphadenopathy. Pathology report of tissue taken from right axillary lymphadenopathy 04/10/24 was nonconclusive due to extensive necrosis with inflammatory cells. Patient was advised to follow-up with general surgery and heme-onc for further management. The patient followed up with general surgery (Dr. Emmanuel) and had a another right axillary mass biopsy on 04/21/24, which again showed extensive necrosis with very little viable tissue. It was recommended that even though there was no evidence of carcinoma, breast and liver biopsies were recommended due to the concerns of the necrosis in the right axillary mass. The patient followed up with Dr. Emmanuel on 06/03/24, which was significant for resolution of drainage in her right axillary wound, but had development of drainage from both lower legs. Dr. Emmanuel at the time tried to order mammogram, breast US, and PET CT, but patient did not follow up on obtaining the imaging. Afterwards, patient was lost to follow up, but patient did not explain what had happened in this time during today's encounter. Patient stated that she would not like cardiac resuscitation, but would like to pursue chemotherapy treatment. Patient stated that she has no family support and has not told her family members about her condition yet. ED Course: Patient brought to ED from home via ambulance. Initial vitals stable. Relevant labs include WBC of 12.5, sodium 129, chloride 91, BUN 31, AST 85, ALT 31, alk phos 104, lactate 2.9, lipase 20, UA negative, and urine toxicology positive for opiates, fentanyl, and methamphetamine. CT chest/abdomen/pelvis with contrast was significant for extensive metastatic cervical, left supra fibular and mediastinal lymphadenopathy. 31 mm hepatic metastasis. Extensive abdominal and pelvic lymphadenopathy. Prominent malignant ascites. Suspicious for diffuse osteoblastic metastatic disease. CT head was significant for 8 mm low-density lesion of left brainstem consistent with infarct which may be old. CT neck with contrast was significant for extensive bulky cervical and supraclavicular metastatic lymphadenopathy, suspicious for osseous metastatic static disease. Patient was given fentanyl 50 mcg one-time dose for back pain and received 2 L of NS. Past Surgical History: - s/p x2 (per chart review) Current Medication(s): Patient did not respond Allergies (w/ Reactions): Patient did not respond Family History: sister of breast cancer per chart review, family history of CAD & HTN per chart review Alcohol Intake:?Patient did not respond Tobacco/Vape Use:?Patient did not respond Other Drug Use:?Patient did not respond Review of Systems Review of Systems ROS Unobtainable: unobtainable due to mental status Exam Vital Signs Temp Pulse Resp BP Pulse Ox O2 Del Method 97.8 F 66 12 85/54 L 94 L Room Air 12/18/24 08:06 12/18/24 13:12/18/24 13:06 12/18/24 13:06 12/18/24 13:06 12/18/24 13:06 Narrative Exam Physical Exam: General: Somnolent, mild distress due to pain. Extensive cervical lymphadenopathy. Head: Normocephalic, atraumatic. Significant temporal wasting. Eye: Normal conjunctiva, PERRL. Throat: Oral mucosa dry. Poor dentation. Cardiovascular: Regular rate and rhythm, soft systolic murmur, +S1/S2. Respiratory: Lungs are clear to auscultation, respirations unlabored, no crackles, no wheezing. Gastrointestinal: Firm, tender to palpation of LLQ and RLQ, distended. No guarding or rebound tenderness. Extremities: Bilateral thigh muscle loss with bilateral lower leg swelling, skin breakdown, and purulent drainage. No cyanosis, no clubbing. Neuro: No focal deficits observed. Conversant, moving all extremities. No overt cerebellar signs/incoordination. Results: Labs 12/18/24 05:50 12/18/24 05:50 Labs: Short CBC 12/18/24 Range/Units 05:50 WBC 12.5 H (3.6-11.0) Thou/mm3 Hgb 12.0 (12.0-16.0) g/dL Hct 37.0 (36.0-46.0) % Plt Count 342 (140-440) Thou/mm3 BMP 12/18/24 05:50 Sodium 129 L Potassium 4.9 Chloride 91 L Carbon Dioxide 26.7 BUN 31 H Creatinine 0.9 Glucose 110 H Calcium 9.1 Liver Function 12/18/24 Range/Units 05:50 Total Bilirubin 0.6 (0.3-1.2) mg/dL AST 85 H (0-34) U/L ALT 31 (10-49) U/L Alkaline Phosphatase 104 (46-116) U/L Albumin 2.7 L (3.4-4.8) gm/dL Urine 12/18/24 12/18/24 12/18/24 Range/Units 09:17 09:17 09:17 Urine Color Yellow Cancelled (Lt Yel-Yel) Urine Clarity Clear Cancelled (Clear/Hazy) Urine pH 5.5 (5.0-7.0) Ur Specific [place] (1.001-1.035) Urine Protein (Neg - Trace) Urine Glucose (UA) (Negative) 12/18/24 12/18/24 12/18/24 Range/Units 09:17 09:17 09:17 Urine Color (Lt Yel-Yel) Urine Clarity (Clear/Hazy) Urine pH Cancelled (5.0-7.0) Ur Specific [place] 1.025 Cancelled (1.001-1.035) Urine Protein Negative Cancelled (Neg - Trace) Urine Glucose (UA) Negative (Negative) 12/18/24 Range/Units 09:17 Urine Color (Lt Yel-Yel) Urine Clarity (Clear/Hazy) Urine pH (5.0-7.0) Ur Specific [place] (1.001-1.035) Urine Protein (Neg - Trace) Urine Glucose (UA) Cancelled (Negative) Quality Measures Quality Measures none Medications Home Medications and Allergies Allergies Allergy/AdvReac Type Severity Reaction Status Date / Time No Known Allergies Allergy Verified 06/03/24 11:50 Visit Medications Hydrocodone Bitart/Acetaminophen (Hydrocodone/Apap 5/325 Tablet) 1 tab PO Q6HR PRN PRN Reason: PAIN SCALE 4-10(Mod-Sev Stop: 12/23/24 13:57 Sodium Chloride (Ns) 1,000 mls @ 150 mls/hr IV .Q6H40M ONE Stop: 12/18/24 14:44 Last Admin: 12/18/24 12:57 Dose: 150 mls/hr Discontinued Medications Fentanyl Citrate (Fentanyl Cit Inj 50 Mcg/Ml Amp 2ml) 50 mcg IVP X1 ONE Stop: 12/18/24 08:17 Last Admin: 12/18/24 11:10 Dose: 50 mcg Sodium Chloride (Ns) 1,000 mls @ 999 mls/hr IV .Q1H1M ONE Stop: 12/18/24 09:05 Last Infusion: 12/18/24 12:55 Dose: Infused Assessment & Plan Plan Mrs. Asif is a 64 year old female with a history of pancreatitis, hep C, polysubstance use, and prior alcohol use who presents to [facility] ED on 12/18 due to increasing abdominal pain and back pain. Patient was admitted for purulent cellulitis of bilateral lower extremities and extensive lymphadenopathy with suspicion for malignancy. #Purulent cellulitis of bilateral lower extremities Patient has significant swelling of bilateral lower extremities from ankle to knee in ED. Patient has several areas of skin deterioration and ulceration with purulent drainage. Patient does not meet criteria for sepsis given lack of end- organ damage. Given purulent drainage, this is most likely involving staph infection. Will also cover for Pseudomonas and MRSA given overall frail appearance of patient with possible underlying malignancy potentially impairing immune function. ? Will start patient on Zosyn and doxycycline (12/18--) ? Wound care referral ordered ? Blood cultures ordered 12/18 ? Nasal MRSA swab ordered #Extensive lymphadenopathy, suspicious for malignancy Patient has significant and extensive lymphadenopathy throughout cervical chain and in axilla. This lymphadenopathy was present since March 2024 and biopsies were previously taken in the past of this lymphadenopathy, but pathology was inconclusive due to extensive necrosis of the collected tissue. Source is likely malignant, likely from breast malignancy given patient's family history and prior imaging suspicious for breast masses. CT chest/abdomen/pelvis showed extensive metastatic cervical, left supraclavicular, and mediastinal lymphadenopathy. CT soft tissue neck also showed bulky cervical and supraclavicular metastatic lymphadenopathy, suspicious for osseous metastatic disease. ? Consulted general surgery, Dr. Emmanuel who is familiar with the patient, to perform biopsy retrieval ? Biopsy planned for Wednesday 12/20 ? Consulted oncology, appreciate recommendations #Ascites, likely malignant #Lower abdominal pain Patient stated that she had swelling of her abdomen over the last couple of weeks. Abdomen is noted to be stiff and tender to palpation. Given the patient's significant lymphadenopathy, this is most likely malignant ascites. Patient has abdominal pain that is most significant in left lower quadrant. CT chest/abdomen/pelvis showed prominent malignant ascites and a 31 mm hepatic metastasis. ? Paracentesis of the abdomen is planned, will most likely not be done until Wednesday 12/20 due to lack of staff over the weekends ? Will perform analysis of peritoneal fluid once collected #Severe protein calorie malnutrition Patient stated that she has lost about 25 pounds over the last few months. Patient looks significantly cachectic with very prominent temporal wasting. Patient has noted to be significantly weak. Given patient's presentation, she is most likely very malnourished and if we fed too soon, the patient may suffer from refeeding syndrome. ? Dietitian referral ordered ? Diet started with clear liquids, will monitor patient for refeeding syndrome with daily phosphorus #Dysphagia Patient stated that she has difficulty swallowing. It feels as if food gets stuck in the middle of her chest. This is most likely due to mechanical compression from her extensive lymphadenopathy. Strictures are also possible, but this is less likely given her presentation. ? Speech therapy referral ordered ? Bedside nurse swallow eval ordered ? Diet modified to clear liquids until recommendations obtained from speech eval #Suspected JUANJOSE, likely prerenal In ED, the patient had a creatinine of 0.9. While this is within normal limits, with her previous visit the patient had a baseline creatinine of 0.5-0.7. The patient looks significantly dry and likely has poor oral intake given her other conditions such as dysphagia. Patient received 3 L of IV fluid hydration in ED. ? Will monitor daily labs ? Will continue IV fluid hydration if no improvement is noted over time ? Avoid nephrotoxic medications ? Renally dose medications #Hepatitis C #Transaminitis Patient has a history of hepatitis C that was uncovered on 04/10/2024 due to a reactive hepatitis C antibody test. In the ED, the patient had elevated AST of 85 with a ALT within normal limits at 31. Patient is also noted to have a 31 mm hepatic mass, likely metastatic. CT chest abdomen pelvis showed 31 mm hepatic metastasis. ? Will continue to monitor with daily labs ? Avoid hepatotoxic medications ? Hepatically adjust medications as necessary #Hypovolemic, hypochloremic hyponatremia Patient presented with sodium of 129, chloride of 91, and appeared significantly dehydrated. These electrolyte imbalances are most likely due to poor oral intake. Patient received fluid resuscitation with 3 L of normal saline in the ED. ? Will monitor with daily labs ? Will resuscitate patient with IV fluids if necessary #Polysubstance abuse Patient has a reported history of polysubstance abuse. In ED, the patient was positive for opiates, fentanyl, and methamphetamine on urine toxicology. While patient was to somnolent to discuss any recent use, the patient was noted to have a similar urine toxicology on 04/10/2024 during previous admission. Patient did not disclose smoking status, however per chart review, patient had smoking history of 1 pack/day for 10 years and now smokes 1-2 cigarettes per day. ? Will continue to monitor ? Referral to social security benefits interviewer ordered ? Referral to smoking cessation educator ordered DVT Prophylaxis: Heparin GI Prophylaxis: Protonix Bowel: Senna Diet: Clear liquid Hdez: N/A Lines: Peripheral IV Antibiotics: Zosyn & doxycycline (12/18--) Code Status: DNR/DNI Reason for Hospitalization: Purulent BLE cellulitis & lymphadenopathy Other Barriers to Discharge: Biopsy & oncology consult Patient plan of care was discussed with the senior resident Dr. Tolentino and attending physician Dr. Rula Verdugo, PGY1
[2024-12-18] MEDS: HEPARIN SOD INJ 5000 UNIT/ML VIAL SC (14:53)
--- NOTE | 2024-12-18 15:57 | PC.NURSE ---
Patient alert and oriented, answers all questions appropiately. Per patient has had chronic wounds to bilateral lower extremities for months, per patient does not see a physician for care. Noted scaled skin to leg beginning from below knee down to feet, left coley area open wound with yellow pus draining, noted scabs to upper extremities. Patient does complain of pain to legs. MD is made aware.
[2024-12-18 16:24] LABS: Reflex Lactate? Y
[2024-12-18] MEDS: PIPER/TAZO 3.375 GM PREMIX 3.375 GM/50 ML BAG IV ×2 (17:12→22:16)
[2024-12-18] MEDS: HYDROcodone/APAP 5/325 TABLET 1 TAB PO (17:12)
[2024-12-18 19:03] LABS: Lactic Acid, 3 HR 3.9 mMol/L (0.4-2.0)
--- NOTE | 2024-12-18 19:50 | PC.NURSE ---
@ 1950 received a called from Dr. Lara wanting an update, vital signs were just taken and informed DrPawan pts BP was 92/56 and this was highest BP after several attempts. Per check BP again in 1 hr and inform him.
[2024-12-18] MEDS: ALBUMIN HUMAN 25% IVPB 25 GM/100 ML BTL IV (20:32)
[2024-12-18] MEDS: DOXYCYCLINE INJ 100 MG in SODIUM CHLORIDE 0.9% (POP) 100 ML IV (20:35)
[2024-12-18 22:42] LABS: Lactate (Lactic Acid) 3.6 mMol/L (0.4-2.0)
[2024-12-18 23:23] LABS: Alanine Aminotransferase 24 U/L (10-49); Albumin, Serum 2.7 gm/dL (3.4-4.8); Albumin/Globulin Ratio 0.8 (1.2-2.2); Alkaline Phosphatase 72 U/L (46-116); Anion Gap 14 (7-16); Aspartate Amino Transferase 62 U/L (0-34); BUN/Creatinine Ratio 37 Ratio (12-20); Bilirubin,Total 0.6 mg/dL (0.3-1.2); Blood Urea Nitrogen 22 mg/dL (9-23); Calcium 8.8 mg/dL (8.3-10.6); Calcium (Corrected) 9.8 mg/dL (8.5-10.1); Carbon Dioxide 21.0 mMol/L (20.0-31.0); Chloride 99 mMol/L (98-107); Creatinine (Component) 0.6 mg/dL (0.6-1.3); Estimated Creatinine Clearance 83.9 mL/min (>60); Globulin 3.2 gm/dL (2.3-3.5); Glucose 83 mg/dL (74-106); Osmolality,Calculated 270 (275-295); Potassium 4.7 mMol/L (3.4-5.1); Sodium 134 mMol/L (136-145); Total Protein 5.9 gm/dL (5.7-8.2); eGFR > 60 See Note
[2024-12-19] VITALS (16 sets, daily range): BP systolic 80–113; BP diastolic 50–73; PULSE 56–80; RESP 13–19; TEMP 36.1–36.7; O2SAT 94–99; BMI 20.4
[2024-12-19] MEDS: MIDODRINE 5 MG TABLET 10 MG PO ×5 (00:10→21:40)
[2024-12-19 01:40] LABS: Reflex Lactate? Y
[2024-12-19 03:25] LABS: Basophils # (Auto) 0.0 Thou/mm3 (0.0-0.2); Basophils % (Auto) 0 % (0-2.5); Eosinophils # (Auto) 0.0 Thou/mm3 (0.0-0.5); Eosinophils % (Auto) 0 % (0-10); Hematocrit 32.2 % (36.0-46.0); Hemoglobin 10.4 g/dL (12.0-16.0); Immature Granulocytes Auto 0.02 Thou/mm3 (0.00-0.00); Lactate (Lactic Acid) 5.2 mMol/L (0.4-2.0); Lymphocytes # (Auto) 0.5 Thou/mm3 (1.0-4.8); Lymphocytes % (Auto) 6 % (10-50); Mean Corpuscular HGB Conc 32.3 g/dl (31.0-37.0); Mean Corpuscular Hemoglobin 26.3 pg (25.0-35.0); Mean Corpuscular Volume 81 fL (80-100); Monocytes # (Auto) 0.6 Thou/mm3 (0.0-0.8); Monocytes % (Auto) 7 % (0-12); Neutrophils # (Auto) 6.9 Thou/mm3 (1.8-7.7); Neutrophils % (Auto) 86 % (37-80); Nucleated Red Blood Cell # 0.00 Thou/mm3 (0.00-0.00); Nucleated Red Blood Cell % 0 /100 WBC (0); Platelet Count 229 Thou/mm3 (140-440); RDW Standard Deviation 51.0 fL (36.4-46.3); Red Blood Count 3.96 Miln/mm3 (4.00-5.20); White Blood Count 8.0 Thou/mm3 (3.6-11.0)
[2024-12-19 03:35] LABS: INR 1.4 (0.9-1.3); Partial Thromboplastin Time 30.2 Seconds (22.0-36.0); Prothrombin Time 14.6 Seconds (9.0-12.2)
[2024-12-19 03:45] LABS: Alanine Aminotransferase 22 U/L (10-49); Albumin, Serum 2.6 gm/dL (3.4-4.8); Albumin/Globulin Ratio 0.8 (1.2-2.2); Alkaline Phosphatase 72 U/L (46-116); Anion Gap 9 (7-16); Aspartate Amino Transferase 60 U/L (0-34); BUN/Creatinine Ratio 33 Ratio (12-20); Bilirubin,Total 0.6 mg/dL (0.3-1.2); Blood Urea Nitrogen 23 mg/dL (9-23); Calcium 8.7 mg/dL (8.3-10.6); Calcium (Corrected) 9.8 mg/dL (8.5-10.1); Carbon Dioxide 23.6 mMol/L (20.0-31.0); Cardiac Risk Estimate 7.0 RATIO (3.7-5.6); Chloride 99 mMol/L (98-107); Cholesterol 73 mg/dL (132-200); Creatinine (Component) 0.7 mg/dL (0.6-1.3); Estimated Creatinine Clearance 72.0 mL/min (>60); Globulin 3.1 gm/dL (2.3-3.5); Glucose 93 mg/dL (74-106); HDL Cholesterol < 10 mg/dL (40-60); LDL Cholesterol,Calculated 48 mg/dL (0-130); Magnesium 1.4 mg/dL (1.6-2.6); Osmolality,Calculated 268 (275-295); Phosphorous 3.0 mg/dL (2.4-5.1); Potassium 4.1 mMol/L (3.4-5.1); Sodium 132 mMol/L (136-145); Thyroid Stimulating Hormone 7.28 uIU/mL (0.55-4.78); Total Protein 5.7 gm/dL (5.7-8.2); Triglycerides 76 mg/dL (30-150); eGFR > 60 See Note
[2024-12-19] MEDS: Magnesium Sulfate 4 GM Ivpb 4 GM/50 ML BAG IV (04:02)
[2024-12-19 04:19] LABS: Free T4 (Free Thyroxine) 0.86 ng/dL (0.89-1.76)
[2024-12-19 04:27] LABS: Base Excess 1 (-3-3); HCO3 26 mEq/L (20-26); Inspired Oxygen, FIO2 21 %; O2 Saturation 96 % (91-98); PCO2 41 mmHg (32.0-48.0); PO2 80 mmHg (83-108); pH, Arterial 7.41 (7.35-7.45)
[2024-12-19 04:31] LABS: Allen Test Performed/OK; Puncture Site Right Radial
[2024-12-19] MEDS: PIPER/TAZO 3.375 GM PREMIX 3.375 GM/50 ML BAG IV ×3 (05:55→21:40)
[2024-12-19 06:13] LABS: Reflex Lactate? Y
[2024-12-19 06:59] LABS: Lactic Acid, 3 HR 3.8 mMol/L (0.4-2.0)
--- NOTE | 2024-12-19 08:05 | PC.NURSE ---
Pt's blood pressure has been trending low since admission. Map borderline. Called Dr. Verdugo to inquire about target map. wants patient to have at least a map of 65. Will continue to assess.
[2024-12-19] MEDS: HEPARIN SOD INJ 5000 UNIT/ML VIAL SC ×2 (09:32→21:41)
[2024-12-19] MEDS: DOXYCYCLINE INJ 100 MG in SODIUM CHLORIDE 0.9% (POP) 100 ML IV ×2 (09:32→20:20)
--- NOTE | 2024-12-19 10:09 | ESPR_ITS ---
<Statement entered by Ernie Horta MD - 12/22/24 14:38> I reviewed above note and agree with findings and plans. I have also personally examined the patient with medicine team and went over assessment and plan with medical team including corporate legal intern and resident physician. <Statement entered by Kaye Jiang MD - 12/19/24 21:49> Pt is seen at bedside, appears to be very cachetic and lethargic appearing. Pt is aware of the high suspicion of malignancy, which she was asked to follow up with further biopsy of the breast and or liver however pt states she missed her appointment and was lost to follow up. Pt states she is in a lot of pain in her back likely secondary to mets. Pt is currently pending further surgery recommendation regarding biospy and pending oncology recommendations. Pt is started on mirtazapine. Will place the pt on NPO and will stop anticoagulation in anticipation of biopsy with Dr. Emmanuel tomorrow. Will repeat LA, make ICU aware of Pt's MAP of 61, will continue Midodrine 10mg TID and gave IL bolus of LR. Patient was seen and examined by me personally. I have directly supervised and reviewed documentation by the team resident and agree with its findings. ------- Plan of care was discussed with the attending, Dr. Rula Jiang, PGY-2 Documentation for date of: 12/19/24 Subjective Subjective Interval history: Overnight events: No acute events overnight. Patient was seen and examined at bedside. AM vitals and labs reviewed. Patient appears to be more awake compared to yesterday, but still very sleepy. Patient states that the pain is still present in her back and abdomen, about the same severity. The patient's lower legs bilaterally seem to have improved, swelling is not as bad and he does not as purulent as compared to yesterday. Discussed the patient's current situation with her family members, and answered their questions. Pending biopsy by general surgery, potentially Friday afternoon. Patient made n.p.o. after midnight. Pending recommendations from oncology. Repeat lactic acid downtrending. Ordered mirtazapine 50 mg at night for the patient to help patient's mood and increased appetite. Review of systems otherwise negative except for what is mentioned above. Exam Vital Signs Temp Pulse Resp BP Pulse Ox O2 Del Method O2 Flow Rate 98.0 F 80 19 97/62 94 L Nasal Cannula 4 12/19/24 08:00 12/19/24 08:00 12/19/24 08:00 12/19/24 08:00 12/19/24 08:00 12/19/24 08:00 12/19/24 08:00 Narrative Exam Physical Exam: General: Sleepy, mild distress due to pain. Extensive cervical lymphadenopathy. Head: Normocephalic, atraumatic. Significant temporal wasting. Eye: Normal conjunctiva, PERRL. Throat: Oral mucosa dry. Poor dentation. Cardiovascular: Regular rate and rhythm, no murmur, +S1/S2. Respiratory: Lungs are clear to auscultation, respirations unlabored, no crackles, no wheezing. Gastrointestinal: Firm, tender to palpation of LLQ and RLQ, distended. No guarding or rebound tenderness. Extremities: Bilateral thigh muscle loss with bilateral lower leg swelling, skin breakdown, and purulent drainage. No cyanosis, no clubbing. Neuro: No focal deficits observed. Conversant, moving all extremities. No overt cerebellar signs/incoordination. Objective Labs 12/19/24 03:04 12/19/24 03:04 Labs: Laboratory Results - last 24 hr 12/18/24 12/18/24 12/18/24 09:17 09:17 09:17 WBC RBC Hgb Hct MCV MCH MCHC RDW Std Deviation Plt Count Neut % (Auto) Lymph % (Auto) [place] % (Auto) Eos % (Auto) Baso % (Auto) Neut # (Auto) Lymph # (Auto) [place] # (Auto) Eos # (Auto) Baso # (Auto) Immature Gran # (Auto) Absolute Nucleated RBC Immature Gran % Nucleated RBC % PT INR APTT Puncture Site ABG pH ABG pCO2 ABG pO2 ABG HCO3 ABG O2 Saturation ABG Base Excess FiO2 Sodium Potassium Chloride Carbon Dioxide Anion Gap BUN Creatinine Estim Creat Clear Calc eGFR BUN/Creatinine Ratio Glucose Calculated Osmolality Lactic Acid Calcium Corrected Calcium Phosphorus Magnesium Total Bilirubin AST ALT Alkaline Phosphatase Total Protein Albumin Globulin Albumin/Globulin Ratio Triglycerides Cholesterol LDL Cholesterol, Calc HDL Cholesterol Cholesterol/HDL Ratio TSH Free T4 Ur Collection Type Clean Catch Cancelled Urine Color Yellow Cancelled Urine Clarity Clear Urine pH Ur Specific Drain Urine Protein Urine Glucose (UA) Urine Ketones Urine Blood Urine Nitrite Urine Bilirubin Urine Urobilinogen (Auto) Ur Leukocyte Esterase Urine RBC Urine WBC Ur Squamous Epith Cells Ur Transition Epith Cell Ur Renal Epithelial Cell Calcium Carbonate Cryst Calcium Phosphate Cryst Calcium Oxalate Crystal Leucine Crystals Cystine Crystals Uric Acid Crystals Triple Phos Crystals Tyrosine Crystals Amorphous Crystals Urine Bacteria Cellular Casts Epithelial Casts Fatty Casts Hyaline Casts Granular Casts Waxy Casts Broad Casts RBC Casts Urine Mucus Urine Trichomonas Ur Yeast w Hyphae Urine Yeast (Budding) Urine Sperm Ur Oval Fat Bodies Ur Culture Indicated? Urine Opiates Screen Urine Fentanyl Screen Ur Barbiturates Screen U Amphetamin/Meth Scrn U Benzodiazepines Scrn U Cocaine Metab Screen U Marijuana (THC) Screen 12/18/24 12/18/24 12/18/24 09:17 09:17 09:17 WBC RBC Hgb Hct MCV MCH MCHC RDW Std Deviation Plt Count Neut % (Auto) Lymph % (Auto) [place] % (Auto) Eos % (Auto) Baso % (Auto) Neut # (Auto) Lymph # (Auto) [place] # (Auto) Eos # (Auto) Baso # (Auto) Immature Gran # (Auto) Absolute Nucleated RBC Immature Gran % Nucleated RBC % PT INR APTT Puncture Site ABG pH ABG pCO2 ABG pO2 ABG HCO3 ABG O2 Saturation ABG Base Excess FiO2 Sodium Potassium Chloride Carbon Dioxide Anion Gap BUN Creatinine Estim Creat Clear Calc eGFR BUN/Creatinine Ratio Glucose Calculated Osmolality Lactic Acid Calcium Corrected Calcium Phosphorus Magnesium Total Bilirubin AST ALT Alkaline Phosphatase Total Protein Albumin Globulin Albumin/Globulin Ratio Triglycerides Cholesterol LDL Cholesterol, Calc HDL Cholesterol Cholesterol/HDL Ratio TSH Free T4 Ur Collection Type Urine Color Urine Clarity Cancelled Urine pH 5.5 Cancelled Ur Specific Drain 1.025 Cancelled Urine Protein Negative Urine Glucose (UA) Urine Ketones Urine Blood Urine Nitrite Urine Bilirubin Urine Urobilinogen (Auto) Ur Leukocyte Esterase Urine RBC Urine WBC Ur Squamous Epith Cells Ur Transition Epith Cell Ur Renal Epithelial Cell Calcium Carbonate Cryst Calcium Phosphate Cryst Calcium Oxalate Crystal Leucine Crystals Cystine Crystals Uric Acid Crystals Triple Phos Crystals Tyrosine Crystals Amorphous Crystals Urine Bacteria Cellular Casts Epithelial Casts Fatty Casts Hyaline Casts Granular Casts Waxy Casts Broad Casts RBC Casts Urine Mucus Urine Trichomonas Ur Yeast w Hyphae Urine Yeast (Budding) Urine Sperm Ur Oval Fat Bodies Ur Culture Indicated? Urine Opiates Screen Urine Fentanyl Screen Ur Barbiturates Screen U Amphetamin/Meth Scrn U Benzodiazepines Scrn U Cocaine Metab Screen U Marijuana (THC) Screen 12/18/24 12/18/24 12/18/24 09:17 09:17 09:17 WBC RBC Hgb Hct MCV MCH MCHC RDW Std Deviation Plt Count Neut % (Auto) Lymph % (Auto) [place] % (Auto) Eos % (Auto) Baso % (Auto) Neut # (Auto) Lymph # (Auto) [place] # (Auto) Eos # (Auto) Baso # (Auto) Immature Gran # (Auto) Absolute Nucleated RBC Immature Gran % Nucleated RBC % PT INR APTT Puncture Site ABG pH ABG pCO2 ABG pO2 ABG HCO3 ABG O2 Saturation ABG Base Excess FiO2 Sodium Potassium Chloride Carbon Dioxide Anion Gap BUN Creatinine Estim Creat Clear Calc eGFR BUN/Creatinine Ratio Glucose Calculated Osmolality Lactic Acid Calcium Corrected Calcium Phosphorus Magnesium Total Bilirubin AST ALT Alkaline Phosphatase Total Protein Albumin Globulin Albumin/Globulin Ratio Triglycerides Cholesterol LDL Cholesterol, Calc HDL Cholesterol Cholesterol/HDL Ratio TSH Free T4 Ur Collection Type Urine Color Urine Clarity Urine pH Ur Specific Drain Urine Protein Cancelled Urine Glucose (UA) Negative Cancelled Urine Ketones Negative Cancelled Urine Blood Negative Urine Nitrite Urine Bilirubin Urine Urobilinogen (Auto) Ur Leukocyte Esterase Urine RBC Urine WBC Ur Squamous Epith Cells Ur Transition Epith Cell Ur Renal Epithelial Cell Calcium Carbonate Cryst Calcium Phosphate Cryst Calcium Oxalate Crystal Leucine Crystals Cystine Crystals Uric Acid Crystals Triple Phos Crystals Tyrosine Crystals Amorphous Crystals Urine Bacteria Cellular Casts Epithelial Casts Fatty Casts Hyaline Casts Granular Casts Waxy Casts Broad Casts RBC Casts Urine Mucus Urine Trichomonas Ur Yeast w Hyphae Urine Yeast (Budding) Urine Sperm Ur Oval Fat Bodies Ur Culture Indicated? Urine Opiates Screen Urine Fentanyl Screen Ur Barbiturates Screen U Amphetamin/Meth Scrn U Benzodiazepines Scrn U Cocaine Metab Screen U Marijuana (THC) Screen 12/18/24 12/18/24 12/18/24 09:17 09:17 09:17 WBC RBC Hgb Hct MCV MCH MCHC RDW Std Deviation Plt Count Neut % (Auto) Lymph % (Auto) [place] % (Auto) Eos % (Auto) Baso % (Auto) Neut # (Auto) Lymph # (Auto) [place] # (Auto) Eos # (Auto) Baso # (Auto) Immature Gran # (Auto) Absolute Nucleated RBC Immature Gran % Nucleated RBC % PT INR APTT Puncture Site ABG pH ABG pCO2 ABG pO2 ABG HCO3 ABG O2 Saturation ABG Base Excess FiO2 Sodium Potassium Chloride Carbon Dioxide Anion Gap BUN Creatinine Estim Creat Clear Calc eGFR BUN/Creatinine Ratio Glucose Calculated Osmolality Lactic Acid Calcium Corrected Calcium Phosphorus Magnesium Total Bilirubin AST ALT Alkaline Phosphatase Total Protein Albumin Globulin Albumin/Globulin Ratio Triglycerides Cholesterol LDL Cholesterol, Calc HDL Cholesterol Cholesterol/HDL Ratio TSH Free T4 Ur Collection Type Urine Color Urine Clarity Urine pH Ur Specific Drain Urine Protein Urine Glucose (UA) Urine Ketones Urine Blood Cancelled Urine Nitrite Negative Cancelled Urine Bilirubin Negative Cancelled Urine Urobilinogen (Auto) Negative Ur Leukocyte Esterase Urine RBC Urine WBC Ur Squamous Epith Cells Ur Transition Epith Cell Ur Renal Epithelial Cell Calcium Carbonate Cryst Calcium Phosphate Cryst Calcium Oxalate Crystal Leucine Crystals Cystine Crystals Uric Acid Crystals Triple Phos Crystals Tyrosine Crystals Amorphous Crystals Urine Bacteria Cellular Casts Epithelial Casts Fatty Casts Hyaline Casts Granular Casts Waxy Casts Broad Casts RBC Casts Urine Mucus Urine Trichomonas Ur Yeast w Hyphae Urine Yeast (Budding) Urine Sperm Ur Oval Fat Bodies Ur Culture Indicated? Urine Opiates Screen Urine Fentanyl Screen Ur Barbiturates Screen U Amphetamin/Meth Scrn U Benzodiazepines Scrn U Cocaine Metab Screen U Marijuana (THC) Screen 12/18/24 12/18/24 12/18/24 09:17 09:17 09:17 WBC RBC Hgb Hct MCV MCH MCHC RDW Std Deviation Plt Count Neut % (Auto) Lymph % (Auto) [place] % (Auto) Eos % (Auto) Baso % (Auto) Neut # (Auto) Lymph # (Auto) [place] # (Auto) Eos # (Auto) Baso # (Auto) Immature Gran # (Auto) Absolute Nucleated RBC Immature Gran % Nucleated RBC % PT INR APTT Puncture Site ABG pH ABG pCO2 ABG pO2 ABG HCO3 ABG O2 Saturation ABG Base Excess FiO2 Sodium Potassium Chloride Carbon Dioxide Anion Gap BUN Creatinine Estim Creat Clear Calc eGFR BUN/Creatinine Ratio Glucose Calculated Osmolality Lactic Acid Calcium Corrected Calcium Phosphorus Magnesium Total Bilirubin AST ALT Alkaline Phosphatase Total Protein Albumin Globulin Albumin/Globulin Ratio Triglycerides Cholesterol LDL Cholesterol, Calc HDL Cholesterol Cholesterol/HDL Ratio TSH Free T4 Ur Collection Type Urine Color Urine Clarity Urine pH Ur Specific Drain Urine Protein Urine Glucose (UA) Urine Ketones Urine Blood Urine Nitrite Urine Bilirubin Urine Urobilinogen (Auto) Cancelled Ur Leukocyte Esterase Negative Cancelled Urine RBC 0 Cancelled Urine WBC 0 Ur Squamous Epith Cells Ur Transition Epith Cell Ur Renal Epithelial Cell Calcium Carbonate Cryst Calcium Phosphate Cryst Calcium Oxalate Crystal Leucine Crystals Cystine Crystals Uric Acid Crystals Triple Phos Crystals Tyrosine Crystals Amorphous Crystals Urine Bacteria Cellular Casts Epithelial Casts Fatty Casts Hyaline Casts Granular Casts Waxy Casts Broad Casts RBC Casts Urine Mucus Urine Trichomonas Ur Yeast w Hyphae Urine Yeast (Budding) Urine Sperm Ur Oval Fat Bodies Ur Culture Indicated? Urine Opiates Screen Urine Fentanyl Screen Ur Barbiturates Screen U Amphetamin/Meth Scrn U Benzodiazepines Scrn U Cocaine Metab Screen U Marijuana (THC) Screen 12/18/24 12/18/24 12/18/24 09:17 09:17 09:17 WBC RBC Hgb Hct MCV MCH MCHC RDW Std Deviation Plt Count Neut % (Auto) Lymph % (Auto) [place] % (Auto) Eos % (Auto) Baso % (Auto) Neut # (Auto) Lymph # (Auto) [place] # (Auto) Eos # (Auto) Baso # (Auto) Immature Gran # (Auto) Absolute Nucleated RBC Immature Gran % Nucleated RBC % PT INR APTT Puncture Site ABG pH ABG pCO2 ABG pO2 ABG HCO3 ABG O2 Saturation ABG Base Excess FiO2 Sodium Potassium Chloride Carbon Dioxide Anion Gap BUN Creatinine Estim Creat Clear Calc eGFR BUN/Creatinine Ratio Glucose Calculated Osmolality Lactic Acid Calcium Corrected Calcium Phosphorus Magnesium Total Bilirubin AST ALT Alkaline Phosphatase Total Protein Albumin Globulin Albumin/Globulin Ratio Triglycerides Cholesterol LDL Cholesterol, Calc HDL Cholesterol Cholesterol/HDL Ratio TSH Free T4 Ur Collection Type Urine Color Urine Clarity Urine pH Ur Specific Drain Urine Protein Urine Glucose (UA) Urine Ketones Urine Blood Urine Nitrite Urine Bilirubin Urine Urobilinogen (Auto) Ur Leukocyte Esterase Urine RBC Urine WBC Cancelled Ur Squamous Epith Cells 0 Cancelled Ur Transition Epith Cell Cancelled Ur Renal Epithelial Cell Cancelled Calcium Carbonate Cryst Cancelled Calcium Phosphate Cryst Cancelled Calcium Oxalate Crystal Cancelled Leucine Crystals Cancelled Cystine Crystals Cancelled Uric Acid Crystals Cancelled Triple Phos Crystals Cancelled Tyrosine Crystals Cancelled Amorphous Crystals Cancelled Urine Bacteria None Cancelled Cellular Casts Cancelled Epithelial Casts Cancelled Fatty Casts Cancelled Hyaline Casts < 1 Granular Casts Waxy Casts Broad Casts RBC Casts Urine Mucus Urine Trichomonas Ur Yeast w Hyphae Urine Yeast (Budding) Urine Sperm Ur Oval Fat Bodies Ur Culture Indicated? Urine Opiates Screen Urine Fentanyl Screen Ur Barbiturates Screen U Amphetamin/Meth Scrn U Benzodiazepines Scrn U Cocaine Metab Screen U Marijuana (THC) Screen 08/02/0312/18/24 12/18/24 09:17 13:15 18:56 WBC RBC Hgb Hct MCV MCH MCHC RDW Std Deviation Plt Count Neut % (Auto) Lymph % (Auto) [place] % (Auto) Eos % (Auto) Baso % (Auto) Neut # (Auto) Lymph # (Auto) [place] # (Auto) Eos # (Auto) Baso # (Auto) Immature Gran # (Auto) Absolute Nucleated RBC Immature Gran % Nucleated RBC % PT INR APTT Puncture Site ABG pH ABG pCO2 ABG pO2 ABG HCO3 ABG O2 Saturation ABG Base Excess FiO2 Sodium Potassium Chloride Carbon Dioxide Anion Gap BUN Creatinine Estim Creat Clear Calc eGFR BUN/Creatinine Ratio Glucose Calculated Osmolality Lactic Acid 2.9 H 3.9 H Calcium Corrected Calcium Phosphorus Magnesium Total Bilirubin AST ALT Alkaline Phosphatase Total Protein Albumin Globulin Albumin/Globulin Ratio Triglycerides Cholesterol LDL Cholesterol, Calc HDL Cholesterol Cholesterol/HDL Ratio TSH Free T4 Ur Collection Type Urine Color Urine Clarity Urine pH Ur Specific Drain Urine Protein Urine Glucose (UA) Urine Ketones Urine Blood Urine Nitrite Urine Bilirubin Urine Urobilinogen (Auto) Ur Leukocyte Esterase Urine RBC Urine WBC Ur Squamous Epith Cells Ur Transition Epith Cell Ur Renal Epithelial Cell Calcium Carbonate Cryst Calcium Phosphate Cryst Calcium Oxalate Crystal Leucine Crystals Cystine Crystals Uric Acid Crystals Triple Phos Crystals Tyrosine Crystals Amorphous Crystals Urine Bacteria Cellular Casts Epithelial Casts Fatty Casts Hyaline Casts Cancelled Granular Casts Cancelled Waxy Casts Cancelled Broad Casts Cancelled RBC Casts Cancelled Urine Mucus Cancelled Urine Trichomonas Cancelled Ur Yeast w Hyphae Cancelled Urine Yeast (Budding) Cancelled Urine Sperm Cancelled Ur Oval Fat Bodies Cancelled Ur Culture Indicated? Cancelled Urine Opiates Screen Positive A Urine Fentanyl Screen Positive A Ur Barbiturates Screen Negative U Amphetamin/Meth Scrn Positive A U Benzodiazepines Scrn Negative U Cocaine Metab Screen Negative U Marijuana (THC) Screen Negative 12/18/24 12/19/24 12/19/24 22:30 03:04 04:20 WBC 8.0 RBC 3.96 L Hgb 10.4 L Hct 32.2 L MCV 81 MCH 26.3 MCHC 32.3 RDW Std Deviation 51.0 H Plt Count 229 D Neut % (Auto) 86 H Lymph % (Auto) 6 L [place] % (Auto) 7 Eos % (Auto) 0 Baso % (Auto) 0 Neut # (Auto) 6.9 Lymph # (Auto) 0.5 L [place] # (Auto) 0.6 Eos # (Auto) 0.0 Baso # (Auto) 0.0 Immature Gran # (Auto) 0.02 H Absolute Nucleated RBC 0.00 Immature Gran % 0 Nucleated RBC % 0 PT 14.6 H INR 1.4 H APTT 30.2 Puncture Site Right Radial ABG pH 7.41 ABG pCO2 41 ABG pO2 80 L ABG HCO3 26 ABG O2 Saturation 96 ABG Base Excess 1 FiO2 21 Sodium 134 L 132 L Potassium 4.7 4.1 D Chloride 99 99 Carbon Dioxide 21.0 23.6 Anion Gap 14 9 BUN 22 23 Creatinine 0.6 0.7 Estim Creat Clear Calc 83.9 72.0 eGFR > 60 > 60 BUN/Creatinine Ratio 37 H 33 H Glucose 83 93 Calculated Osmolality 270 L 268 L Lactic Acid 3.6 H 5.2 H* Calcium 8.8 8.7 Corrected Calcium 9.8 9.8 Phosphorus 3.0 Magnesium 1.4 L Total Bilirubin 0.6 0.6 AST 62 H 60 H ALT 24 22 Alkaline Phosphatase 72 D 72 Total Protein 5.9 5.7 Albumin 2.7 L 2.6 L Globulin 3.2 3.1 Albumin/Globulin Ratio 0.8 L 0.8 L Triglycerides 76 Cholesterol 73 L LDL Cholesterol, Calc 48 HDL Cholesterol < 10 L Cholesterol/HDL Ratio 7.0 H TSH 7.28 H Free T4 0.86 L Ur Collection Type Urine Color Urine Clarity Urine pH Ur Specific Drain Urine Protein Urine Glucose (UA) Urine Ketones Urine Blood Urine Nitrite Urine Bilirubin Urine Urobilinogen (Auto) Ur Leukocyte Esterase Urine RBC Urine WBC Ur Squamous Epith Cells Ur Transition Epith Cell Ur Renal Epithelial Cell Calcium Carbonate Cryst Calcium Phosphate Cryst Calcium Oxalate Crystal Leucine Crystals Cystine Crystals Uric Acid Crystals Triple Phos Crystals Tyrosine Crystals Amorphous Crystals Urine Bacteria Cellular Casts Epithelial Casts Fatty Casts Hyaline Casts Granular Casts Waxy Casts Broad Casts RBC Casts Urine Mucus Urine Trichomonas Ur Yeast w Hyphae Urine Yeast (Budding) Urine Sperm Ur Oval Fat Bodies Ur Culture Indicated? Urine Opiates Screen Urine Fentanyl Screen Ur Barbiturates Screen U Amphetamin/Meth Scrn U Benzodiazepines Scrn U Cocaine Metab Screen U Marijuana (THC) Screen 12/19/24 06:50 WBC RBC Hgb Hct MCV MCH MCHC RDW Std Deviation Plt Count Neut % (Auto) Lymph % (Auto) [place] % (Auto) Eos % (Auto) Baso % (Auto) Neut # (Auto) Lymph # (Auto) [place] # (Auto) Eos # (Auto) Baso # (Auto) Immature Gran # (Auto) Absolute Nucleated RBC Immature Gran % Nucleated RBC % PT INR APTT Puncture Site ABG pH ABG pCO2 ABG pO2 ABG HCO3 ABG O2 Saturation ABG Base Excess FiO2 Sodium Potassium Chloride Carbon Dioxide Anion Gap BUN Creatinine Estim Creat Clear Calc eGFR BUN/Creatinine Ratio Glucose Calculated Osmolality Lactic Acid 3.8 H Calcium Corrected Calcium Phosphorus Magnesium Total Bilirubin AST ALT Alkaline Phosphatase Total Protein Albumin Globulin Albumin/Globulin Ratio Triglycerides Cholesterol LDL Cholesterol, Calc HDL Cholesterol Cholesterol/HDL Ratio TSH Free T4 Ur Collection Type Urine Color Urine Clarity Urine pH Ur Specific Drain Urine Protein Urine Glucose (UA) Urine Ketones Urine Blood Urine Nitrite Urine Bilirubin Urine Urobilinogen (Auto) Ur Leukocyte Esterase Urine RBC Urine WBC Ur Squamous Epith Cells Ur Transition Epith Cell Ur Renal Epithelial Cell Calcium Carbonate Cryst Calcium Phosphate Cryst Calcium Oxalate Crystal Leucine Crystals Cystine Crystals Uric Acid Crystals Triple Phos Crystals Tyrosine Crystals Amorphous Crystals Urine Bacteria Cellular Casts Epithelial Casts Fatty Casts Hyaline Casts Granular Casts Waxy Casts Broad Casts RBC Casts Urine Mucus Urine Trichomonas Ur Yeast w Hyphae Urine Yeast (Budding) Urine Sperm Ur Oval Fat Bodies Ur Culture Indicated? Urine Opiates Screen Urine Fentanyl Screen Ur Barbiturates Screen U Amphetamin/Meth Scrn U Benzodiazepines Scrn U Cocaine Metab Screen U Marijuana (THC) Screen ABG Interpretation ABG results: 12/19/24 04:20 ABG pH 7.41 ABG pCO2 41 ABG pO2 80 L ABG HCO3 26 ABG O2 Saturation 96 ABG Base Excess 1 Quality Measures Quality Measures VTE prophylaxis Assessment & Plan Assessment Current Active Medications: Generic Name Dose Route Start Last Admin Trade Name Freq PRN Reason Stop Dose Admin Acetaminophen 325 mg 12/18/24 14:30 Acetaminophen 325 Mg Tablet PO 01/17/25 14:29 Q6H PRN Fever >101.5 or pain (1-3) Hydrocodone Bitart/Acetaminophen 1 tab 12/18/24 13:58 12/18/24 17:12 Hydrocodone/Apap 5/325 Tablet PO 12/23/24 13:57 1 tab Q6HR PRN Administration PAIN SCALE 4-10(Mod-Sev Heparin Sodium (Porcine) 5,000 unit 12/18/24 14:45 12/19/24 09:32 Heparin Sod Inj 5000 Unit/Ml Vial SC 01/01/25 14:44 5,000 unit Q12HR ALEXANDREA Administration Doxycycline Hyclate 100 mg/ 100 mls @ 100 mls/hr 12/18/24 21:00 12/19/24 09:32 Sodium Chloride IV 12/25/24 20:59 100 mls/hr BID ALEXANDREA Administration Piperacillin/Tazobactam/Dextrose 3.375 gm in 50 mls @ 12.5 mls/hr 12/18/24 22:00 12/19/24 05:55 Zosyn IV 12/25/24 21:59 12.5 mls/hr Q8HR ALEXANDREA Administration Midodrine 10 mg 12/18/24 23:45 12/19/24 05:55 Midodrine 5 Mg Tablet PO 01/17/25 23:44 10 mg TID ALEXANDREA Administration Nicotine 21 mg 12/19/24 09:00 12/19/24 09:33 Nicotine Patch 21 Mg/24 Hr Patch.Td24 TOP 01/18/25 08:59 Not Given QDAY ALEXANDREA Ondansetron HCl 4 mg 12/18/24 14:30 Ondansetron Inj 2 Mg/Ml Inj 2 Ml IVP 01/17/25 14:29 Q6H PRN NAUSEA OR VOMITING Protocol Pantoprazole Sodium 40 mg 12/19/24 09:00 12/19/24 09:33 Pantoprazole Inj 40 Mg Vial IVP 01/18/25 08:59 40 mg QDAY ALEXANDREA Administration Sennosides 1 tab 12/19/24 09:00 12/19/24 09:33 Senna Tablet PO 01/18/25 08:59 1 tab QDAY ALEXANDREA Administration Protocol Plan Mrs. Asif is a 64 year old female with a history of pancreatitis, hep C, polysubstance use, and prior alcohol use who presents to [facility] ED on 12/18 due to increasing abdominal pain and back pain. Patient was admitted for purulent cellulitis of bilateral lower extremities and extensive lymphadenopathy with suspicion for malignancy. #Purulent cellulitis of bilateral lower extremities Patient has significant swelling of bilateral lower extremities from ankle to knee in ED. Patient has several areas of skin deterioration and ulceration with purulent drainage. Patient does not meet criteria for sepsis given lack of end- organ damage. Given purulent drainage, this is most likely involving staph infection. Will also cover for Pseudomonas and MRSA given overall frail appearance of patient with possible underlying malignancy potentially impairing immune function. ? Will start patient on Zosyn and doxycycline (12/18--) ? Wound care referral ordered ? Blood cultures ordered 12/18 ? Nasal MRSA swab ordered #Extensive lymphadenopathy, suspicious for malignancy Patient has significant and extensive lymphadenopathy throughout cervical chain and in axilla. This lymphadenopathy was present since March 2024 and biopsies were previously taken in the past of this lymphadenopathy, but pathology was inconclusive due to extensive necrosis of the collected tissue. Source is likely malignant, likely from breast malignancy given patient's family history and prior imaging suspicious for breast masses. CT chest/abdomen/pelvis showed extensive metastatic cervical, left supraclavicular, and mediastinal lymphadenopathy. CT soft tissue neck also showed bulky cervical and supraclavicular metastatic lymphadenopathy, suspicious for osseous metastatic disease. ? Consulted general surgery, Dr. Emmanuel who is familiar with the patient, to perform biopsy retrieval ? Biopsy planned for Wednesday 12/20 ? Consulted oncology, appreciate recommendations #Ascites, likely malignant #Lower abdominal pain Patient stated that she had swelling of her abdomen over the last couple of weeks. Abdomen is noted to be stiff and tender to palpation. Given the patient's significant lymphadenopathy, this is most likely malignant ascites. Patient has abdominal pain that is most significant in left lower quadrant. CT chest/abdomen/pelvis showed prominent malignant ascites and a 31 mm hepatic metastasis. ? Paracentesis of the abdomen is planned, will most likely not be done until Wednesday 12/20 due to lack of staff over the weekends ? Will perform analysis of peritoneal fluid once collected #Severe protein calorie malnutrition Patient stated that she has lost about 25 pounds over the last few months. Patient looks significantly cachectic with very prominent temporal wasting. Patient has noted to be significantly weak. Given patient's presentation, she is most likely very malnourished and if we fed too soon, the patient may suffer from refeeding syndrome. ? Dietitian referral ordered ? Diet started with clear liquids, will monitor patient for refeeding syndrome with daily phosphorus ? Mirtazapine 15 mg at night ordered #Dysphagia Patient stated that she has difficulty swallowing. It feels as if food gets stuck in the middle of her chest. This is most likely due to mechanical compression from her extensive lymphadenopathy. Strictures are also possible, but this is less likely given her presentation. ? Speech therapy referral ordered, recommends diet of D2 and thin liquids due to mild oral phase dysphagia due to missing dentation ? Bedside nurse swallow eval ordered, patient passed bedside swallow screen #Suspected JUANJOSE, likely prerenal (resolving) In ED, the patient had a creatinine of 0.9. While this is within normal limits, with her previous visit the patient had a baseline creatinine of 0.5-0.7. The patient looks significantly dry and likely has poor oral intake given her other conditions such as dysphagia. Patient received 3 L of IV fluid hydration in ED. ? Will monitor daily labs ? Will continue IV fluid hydration if no improvement is noted over time ? Avoid nephrotoxic medications ? Renally dose medications #Hepatitis C #Transaminitis Patient has a history of hepatitis C that was uncovered on 04/10/2024 due to a reactive hepatitis C antibody test. In the ED, the patient had elevated AST of 85 with a ALT within normal limits at 31. Patient is also noted to have a 31 mm hepatic mass, likely metastatic. CT chest abdomen pelvis showed 31 mm hepatic metastasis. ? Will continue to monitor with daily labs ? Avoid hepatotoxic medications ? Hepatically adjust medications as necessary #Hypovolemic, hypochloremic hyponatremia #Hypomagnesemia Patient presented with sodium of 129, chloride of 91, and appeared significantly dehydrated. These electrolyte imbalances are most likely due to poor oral intake. Patient received fluid resuscitation with 3 L of normal saline in the ED. ? Will monitor with daily labs ? Will resuscitate patient with IV fluids if necessary ? Patient had magnesium of 1.4 on repeat magnesium 12/18 overnight, was repleted by the night team #Polysubstance abuse Patient has a reported history of polysubstance abuse. In ED, the patient was positive for opiates, fentanyl, and methamphetamine on urine toxicology. While patient was to somnolent to discuss any recent use, the patient was noted to have a similar urine toxicology on 04/10/2024 during previous admission. Patient did not disclose smoking status, however per chart review, patient had smoking history of 1 pack/day for 10 years and now smokes 1-2 cigarettes per day. ? Will continue to monitor ? Referral to social work msw ordered ? Referral to smoking cessation educator ordered DVT Prophylaxis: Heparin GI Prophylaxis: Protonix Bowel: Senna Diet: D2 and thin liquids Hdez: N/A Lines: Peripheral IV Antibiotics: Zosyn & doxycycline (12/18--) Code Status: DNR/DNI Reason for Hospitalization: Purulent BLE cellulitis & lymphadenopathy Other Barriers to Discharge: Biopsy & oncology consult Patient plan of care was discussed with the senior resident Dr. Tolentino and attending physician Dr. Rula Verdugo, PGY1
--- NOTE | 2024-12-19 10:11 | PC.SS ---
Addendum entered by Zehra Mccord 12/19/24 14:36: Rounding note: Pending surgery and oncology recommendations. Biopsy also pending. Patient to discharge home when medically clear. Original Note: Patient is 64YO White Female, reason for visit: LYMPHADENOPATHY SS met with patient at bedside, role and purpose were explained to patient. Patient confirmed her demographic information. Patient stated her friend Diane Shanks [phone] is her primary medical surrogate decision maker. Patient stated she lives alone. Prior to current hospitalization, patient was independent with ADL completion and independent with ambulation. [facility]acy: [facility]. PCP: [facility] providers, unable to recall last. Appt. Patient stated she would like to return home at discharge, Friend Diane Shanks, to transport. Discharge plan: Home Next of Kin: friend Diane Shanks [phone]
--- NOTE | 2024-12-19 11:39 | PC.PT ---
PT eval was attempted at 11:21. Patient reported she was feeling very fatigued and could not work with PT today. PT encouraged patient to try and move to maintain her current muscle strength. Patient declined and asked PT to try again tomorrow. Will re-attempt PT eval at another time. RN made aware.
--- NOTE | 2024-12-19 13:30 | PC.NURSE ---
Pt has a wound consult for open wound with purulent drainage on the Lower Left leg. Cleaned patient's leg with wound cleanser, covered with ABD, and wrapped with gauze.
--- NOTE | 2024-12-19 14:45 | PC.NURSE ---
Pt is oriented times 4. Answers all questions when prompted. Keeps eyes closed most of the time. Pt has been lethargic since admission yesterday. However, pt had visitors today and when visitors were in the room with the pt, the pt was alert and talking with visitors. When visitors left, pt went back to eyes closed and being lethargic.
[2024-12-19 17:05] LABS: Lactate (Lactic Acid) 4.8 mMol/L (0.4-2.0)
--- NOTE | 2024-12-19 17:51 | PC.NURSE ---
Pt's blood pressure runs soft. Map has been borderline. Called Dr. Verdugo to inquire about patient's target map. wants patient to have a target map of atleast 65. Will continue to assess patient.
[2024-12-19] MEDS: RINGERS LACTATED 1000 ML 1,000 ML 150 ML IV (18:14)
[2024-12-19 19:58] LABS: Reflex Lactate? Y
[2024-12-19] MEDS: MIRTAZAPINE 15 MG TABLET PO (21:40)
[2024-12-19 22:02] LABS: Lactic Acid, 3 HR 5.5 mMol/L (0.4-2.0)
[2024-12-20] VITALS (13 sets, daily range): BP systolic 103–111; BP diastolic 56–74; PULSE 61–84; RESP 13–16; TEMP 36.1–36.4; O2SAT 92–97; BMI 21.7
[2024-12-20] MEDS: RINGERS LACTATED 1000 ML 1,000 ML 150 ML IV ×3 (01:07→20:50)
[2024-12-20 02:16] LABS: Lactate (Lactic Acid) 6.0 mMol/L (0.4-2.0)
[2024-12-20] MEDS: THIAMINE INJ 100 MG in SODIUM CHLORIDE 0.9% 100 ML 202 MG IV (03:34)
[2024-12-20 03:53] LABS: Base Excess, Venous -1 (-3-3); O2 Saturation, Venous 63 % (96-97); PCO2, Venous 47 mmHg (36-56); PO2, Venous 40 mmHg (15-58); pH, Venous 7.34 (7.33-7.66)
[2024-12-20] MEDS: MIDODRINE 5 MG TABLET 10 MG PO ×3 (03:56→21:26)
[2024-12-20 05:00] LABS: Reflex Lactate? Y
[2024-12-20] MEDS: PIPER/TAZO 3.375 GM PREMIX 3.375 GM/50 ML BAG IV ×2 (05:17→21:26)
[2024-12-20 07:55] LABS: Lactic Acid, 3 HR 4.0 mMol/L (0.4-2.0)
[2024-12-20 08:06] LABS: Basophils # (Auto) 0.0 Thou/mm3 (0.0-0.2); Basophils % (Auto) 0 % (0-2.5); Eosinophils # (Auto) 0.0 Thou/mm3 (0.0-0.5); Eosinophils % (Auto) 0 % (0-10); Hematocrit 39.7 % (36.0-46.0); Hemoglobin 12.6 g/dL (12.0-16.0); Immature Granulocytes Auto 0.04 Thou/mm3 (0.00-0.00); Lymphocytes # (Auto) 0.7 Thou/mm3 (1.0-4.8); Lymphocytes % (Auto) 5 % (10-50); Mean Corpuscular HGB Conc 31.7 g/dl (31.0-37.0); Mean Corpuscular Hemoglobin 26.0 pg (25.0-35.0); Mean Corpuscular Volume 82 fL (80-100); Monocytes # (Auto) 0.9 Thou/mm3 (0.0-0.8); Monocytes % (Auto) 7 % (0-12); Neutrophils # (Auto) 11.2 Thou/mm3 (1.8-7.7); Neutrophils % (Auto) 87 % (37-80); Nucleated Red Blood Cell # 0.00 Thou/mm3 (0.00-0.00); Nucleated Red Blood Cell % 0 /100 WBC (0); Platelet Count 279 Thou/mm3 (140-440); RDW Standard Deviation 53.2 fL (36.4-46.3); Red Blood Count 4.85 Miln/mm3 (4.00-5.20); White Blood Count 12.8 Thou/mm3 (3.6-11.0)
--- NOTE | 2024-12-20 08:14 | PD.ONCCONS ---
HPI Data of Consult Requesting Physician: Ernie Horta MD Primary Care Provider: Physician No Primary/Family Consult Narrative Reason for consult: Suspected widespread malignancy History of present illness: Unfortunate 64-year-old lady with multiple comorbidities including hepatitis C polysubstance misuse admitted with purulent cellulitis bilateral lower extremities extensive adenopathy suspicious of malignancy and likely malignant ascites. Chest abdomen pelvis CT April 11, 2024 revealed enlarged edematous right breast with poorly defined masses extensive right axillary lymphadenopathy with abscess-like right axilla 5 x 7 mm 38 mm right lobe liver lesions likely hepatic mets. Repeat CT on admission showed apparent progression of these lesions and also prominent malignant ascites and widespread bone mets. CT of the brain suggested small brainstem infarct. Neck CT suggested bulky cervical and supraclavicular metastatic lymphadenopathy. Patient did not referred for oncological consultation. Patient had prior right axillary biopsy performed 04/21/2024 but which was nondiagnostic. Dr Emmanuel, general surgeon reportedly will be performing repeat biopsy today. cc:: cc: Ernie Horta MD Past Medical History Family History OTHER FAMILY HX: 1 sister of breast cancer. Coronary artery disease and hypertension and family Past Medical History Comments PMH COMMENT: History of polysubstance abuse hepatitis C alcohol use and smoking Meds Home Medications and Allergies Allergies Allergy/AdvReac Type Severity Reaction Status Date / Time No Known Allergies Allergy Verified 06/03/24 11:50 Exam Vital Signs Temp Pulse Resp BP Pulse Ox O2 Del Method O2 Flow Rate 97.0 F 76 16 103/56 L 94 L Nasal Cannula 1.5 12/20/24 08:00 12/20/24 08:00 12/20/24 08:00 12/20/24 08:00 12/20/24 08:00 12/20/24 08:00 12/20/24 08:00 Narrative Exam Lethargic female barely arousable this a.m. Results Labs 12/20/24 07:31 12/19/24 03:04 Labs: Short CBC 12/20/24 Range/Units 07:31 WBC 12.8 H D (3.6-11.0) Thou/mm3 Hgb 12.6 D (12.0-16.0) g/dL Hct 39.7 (36.0-46.0) % Plt Count 279 D (140-440) Thou/mm3 ABG Interpretation ABG results: 12/19/24 12/20/24 04:20 01:44 ABG pH 7.41 ABG pCO2 41 ABG pO2 80 L ABG HCO3 26 ABG O2 Saturation 96 ABG Base Excess 1 VBG pH 7.34 VBG pCO2 47 VBG pO2 40 VBG Base Excess -1 Assessment and Plan Additional Assessment & Plan Additional Plan: 1. 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 Patient with multiple comorbidities and poor PPS scale. 3. Dr. Emmanuel reportedly will be performing surgical biopsy today. 4. Will follow and discuss with patient and family members about the results and our goals of care., 5. Thank you for allowing me to evaluate this patient
[2024-12-20 08:21] LABS: Alanine Aminotransferase 22 U/L (10-49); Albumin, Serum 2.7 gm/dL (3.4-4.8); Albumin/Globulin Ratio 0.8 (1.2-2.2); Alkaline Phosphatase 95 U/L (46-116); Anion Gap 10 (7-16); Aspartate Amino Transferase 65 U/L (0-34); BUN/Creatinine Ratio 25 Ratio (12-20); Bilirubin,Total 0.8 mg/dL (0.3-1.2); Blood Urea Nitrogen 15 mg/dL (9-23); Calcium 8.8 mg/dL (8.3-10.6); Calcium (Corrected) 9.8 mg/dL (8.5-10.1); Carbon Dioxide 21.1 mMol/L (20.0-31.0); Chloride 100 mMol/L (98-107); Creatinine (Component) 0.6 mg/dL (0.6-1.3); Estimated Creatinine Clearance 91.0 mL/min (>60); Globulin 3.6 gm/dL (2.3-3.5); Glucose 78 mg/dL (74-106); Magnesium 1.6 mg/dL (1.6-2.6); Osmolality,Calculated 262 (275-295); Phosphorous 2.1 mg/dL (2.4-5.1); Potassium 3.9 mMol/L (3.4-5.1); Sodium 131 mMol/L (136-145); Total Protein 6.3 gm/dL (5.7-8.2); eGFR > 60 See Note
--- NOTE | 2024-12-20 09:14 | PC.SS ---
Follow up note: Paracentesis today. On IV antibiotic. Pt will return home upon dc.
[2024-12-20] MEDS: NICOTINE PATCH 21 MG/24 HR PATCH.TD24 TOP (09:15)
[2024-12-20] MEDS: DOXYCYCLINE INJ 100 MG in SODIUM CHLORIDE 0.9% (POP) 100 ML IV (09:20)
[2024-12-20] MEDS: SOD PHOS ADDITIVE 15 MMOL in SODIUM CHLORIDE 0.9% 250 ML 250 ML 62.5 MMOL IV (10:00)
[2024-12-20] MEDS: MORPHINE SULF INJ 10 MG/ML VIAL IVP ×2 (12:59→18:35)
--- NOTE | 2024-12-20 13:09 | PC.DIETICIAN ---
Nutrition recommendations: When indicated, consider: 1. Dys Mech Altered. Ensure Plus 240ml BID with lunch and dinner (vanilla). 2. Thiamine 100mg/day for 7 days. 3. Multivitamins/Minerals. 4. Daily labs for P, K, and Mg; replace as needed. Patient meets ASPEN criteria for Severe chronic disease or condition related malnutrition due to: 1. Significant unintentional weight loss (~25 lb in 2-3 months). 2. Inadequate energy intake. 3. Severe muscle wasting. 4. Severe subcutaneous fat loss.
--- NOTE | 2024-12-20 13:27 | ESPR_ITS ---
<Statement entered by Ernie Horta MD - 12/23/24 09:09> I reviewed above note and agree with findings and plans. I have also personally examined the patient with medicine team and went over assessment and plan with medical team including international relations teacher and resident physician. <Statement entered by Kaye Jiang MD - 12/20/24 15:33> Patient is seen at bedside this morning. Patient is complaining of significant pain in her back likely secondary to bone mets. Patient continues to be very lethargic and sleeps most of the day however patient is arousable and responds to questions answers. Patient was originally scheduled for possible biopsy by Dr. Emmanuel which has been rescheduled for tomorrow and paracenthesis by IR and removed 4.8 L of fluid. Ascitic fluid is sent for cytology and morphine 1 mg as ordered as needed for pain. Patient is also seen by radiation oncologist Dr. Ireland, awaits for biopsy. Patient was seen and examined by me personally. I have directly supervised and reviewed documentation by the team resident and agree with its findings. ------- Plan of care was discussed with the attending, Dr. Rula Jiang, PGY-2 Documentation for date of: 12/20/24 Subjective Subjective Interval history: Overnight events: No acute events overnight. Patient was seen and examined at bedside. AM vitals and labs reviewed. Patient complains of pain in back that has not improved. Patient seems less lethargic, especially when family is in the room. No other complaints at this time. Dr. Emmanuel will plan for biopsy tomorrow due to difficulties with scheduling. Dr. Ireland saw the patient and discussed with family. Will wait for biopsy results to continue discussion about goals of care. Patient noted to have poor PPS scale. Patient had ultrasound-guided paracentesis performed by IR today. Removed 4850 cc of fluid. Potential discharge after biopsy. Review of systems otherwise negative except for what is mentioned above. Exam Vital Signs Temp Pulse Resp BP Pulse Ox O2 Del Method O2 Flow Rate 97.3 F 82 13 105/69 92 L Nasal Cannula 1.5 12/20/24 12:00 12/20/24 12:00 12/20/24 12:00 12/20/24 12:00 12/20/24 12:00 12/20/24 12:12/20/24 12:00 Narrative Exam Physical Exam: General: Sleepy, mild distress due to pain. Extensive cervical lymphadenopathy. Head: Normocephalic, atraumatic. Significant temporal wasting. Eye: Normal conjunctiva, PERRL. Throat: Oral mucosa dry. Poor dentation. Cardiovascular: Regular rate and rhythm, no murmur, +S1/S2. Respiratory: Lungs are clear to auscultation, respirations unlabored, no crackles, no wheezing. Gastrointestinal: Firm, tender to palpation of LLQ and RLQ, distended. No guarding or rebound tenderness. Extremities: Bilateral thigh muscle loss with bilateral lower leg swelling, skin breakdown. Left leg wrapped in bandages. No cyanosis, no clubbing. Neuro: No focal deficits observed. Conversant, moving all extremities. No overt cerebellar signs/incoordination. Objective Labs 12/20/24 07:31 12/20/24 07:31 Labs: Laboratory Results - last 24 hr 12/19/24 12/19/24 12/20/24 16:52 20:29 01:44 WBC RBC Hgb Hct MCV MCH MCHC RDW Std Deviation Plt Count Neut % (Auto) Lymph % (Auto) Stoddard % (Auto) Eos % (Auto) Baso % (Auto) Neut # (Auto) Lymph # (Auto) Stoddard # (Auto) Eos # (Auto) Baso # (Auto) Immature Gran # (Auto) Absolute Nucleated RBC Immature Gran % Nucleated RBC % VBG pH 7.34 VBG pCO2 47 VBG pO2 40 VBG O2 Sat (Isabel) 63 L VBG Base Excess -1 Sodium Potassium Chloride Carbon Dioxide Anion Gap BUN Creatinine Estim Creat Clear Calc eGFR BUN/Creatinine Ratio Glucose Calculated Osmolality Lactic Acid 4.8 H* 5.5 H* 6.0 H* Calcium Corrected Calcium Phosphorus Magnesium Total Bilirubin AST ALT Alkaline Phosphatase Total Protein Albumin Globulin Albumin/Globulin Ratio 12/20/24 07:31 WBC 12.8 H D RBC 4.85 Hgb 12.6 D Hct 39.7 MCV 82 MCH 26.0 MCHC 31.7 RDW Std Deviation 53.2 H Plt Count 279 D Neut % (Auto) 87 H Lymph % (Auto) 5 L Stoddard % (Auto) 7 Eos % (Auto) 0 Baso % (Auto) 0 Neut # (Auto) 11.2 H Lymph # (Auto) 0.7 L Stoddard # (Auto) 0.9 H Eos # (Auto) 0.0 Baso # (Auto) 0.0 Immature Gran # (Auto) 0.04 H Absolute Nucleated RBC 0.00 Immature Gran % 0 Nucleated RBC % 0 VBG pH VBG pCO2 VBG pO2 VBG O2 Sat (Isabel) VBG Base Excess Sodium 131 L Potassium 3.9 Chloride 100 Carbon Dioxide 21.1 Anion Gap 10 BUN 15 Creatinine 0.6 Estim Creat Clear Calc 91.0 eGFR > 60 BUN/Creatinine Ratio 25 H Glucose 78 Calculated Osmolality 262 L Lactic Acid 4.0 H Calcium 8.8 Corrected Calcium 9.8 Phosphorus 2.1 L Magnesium 1.6 Total Bilirubin 0.8 AST 65 H ALT 22 Alkaline Phosphatase 95 D Total Protein 6.3 Albumin 2.7 L Globulin 3.6 H Albumin/Globulin Ratio 0.8 L ABG Interpretation ABG results: 12/19/24 12/20/24 04:20 01:44 ABG pH 7.41 ABG pCO2 41 ABG pO2 80 L ABG HCO3 26 ABG O2 Saturation 96 ABG Base Excess 1 VBG pH 7.34 VBG pCO2 47 VBG pO2 40 VBG Base Excess -1 Quality Measures Quality Measures VTE prophylaxis Assessment & Plan Assessment Current Active Medications: Generic Name Dose Route Start Last Admin Trade Name Freq PRN Reason Stop Dose Admin Acetaminophen 325 mg 12/18/24 14:30 Acetaminophen 325 Mg Tablet PO 01/17/25 14:29 Q6H PRN Fever >101.5 or pain (1-3) Hydrocodone Bitart/Acetaminophen 1 tab 12/20/24 09:47 Hydrocodone/Apap 5/325 Tablet PO 12/23/24 13:57 Q6HR PRN PAIN SCALE 4-6 Doxycycline Hyclate 100 mg/ 100 mls @ 100 mls/hr 12/18/24 21:00 12/20/24 09:20 Sodium Chloride IV 12/25/24 20:59 100 mls/hr BID ALEXANDREA Administration Piperacillin/Tazobactam/Dextrose 3.375 gm in 50 mls @ 12.5 mls/hr 12/18/24 22:00 12/20/24 05:17 Zosyn IV 12/25/24 21:59 12.5 mls/hr Q8HR ALEXANDREA Administration Lactated Ringer's 1,000 mls @ 150 mls/hr 12/19/24 17:19 12/20/24 08:55 Lactated Ringers IV 01/18/25 17:18 150 mls/hr .Q6H40M ALEXANDREA Administration Midodrine 10 mg 12/20/24 03:30 12/20/24 09:12 Midodrine 5 Mg Tablet PO 01/19/25 03:29 10 mg Q6H ALEXANDREA Administration Mirtazapine 15 mg 12/19/24 21:00 12/19/24 21:40 Mirtazapine 15 Mg Tablet PO 01/18/25 20:59 15 mg HS ALEXANDREA Administration Morphine Sulfate 1 mg 12/20/24 09:45 12/20/24 12:59 Morphine Sulf Inj 10 Mg/Ml Vial IVP 12/25/24 09:44 1 mg Q4HR PRN Administration PAIN 7-10 Nicotine 21 mg 12/19/24 09:00 12/20/24 09:15 Nicotine Patch 21 Mg/24 Hr Patch.Td24 TOP 01/18/25 08:59 21 mg QDAY ALEXANDREA Administration Ondansetron HCl 4 mg 12/18/24 14:30 Ondansetron Inj 2 Mg/Ml Inj 2 Ml IVP 01/17/25 14:29 Q6H PRN NAUSEA OR VOMITING Protocol Pantoprazole Sodium 40 mg 12/19/24 09:00 12/20/24 09:13 Pantoprazole Inj 40 Mg Vial IVP 01/18/25 08:59 40 mg QDAY ALEXANDREA Administration Sennosides 1 tab 12/19/24 09:00 12/20/24 09:13 Senna Tablet PO 01/18/25 08:59 1 tab QDAY ALEXANDREA Administration Protocol Plan Mrs. Asif is a 64 year old female with a history of pancreatitis, hep C, polysubstance use, and prior alcohol use who presents to [facility] ED on 12/18 due to increasing abdominal pain and back pain. Patient was admitted for purulent cellulitis of bilateral lower extremities and extensive lymphadenopathy with suspicion for malignancy. #Purulent cellulitis of bilateral lower extremities Patient has significant swelling of bilateral lower extremities from ankle to knee in ED. Patient has several areas of skin deterioration and ulceration with purulent drainage. Patient does not meet criteria for sepsis given lack of end- organ damage. Given purulent drainage, this is most likely involving staph infection. Will also cover for Pseudomonas and MRSA given overall frail appearance of patient with possible underlying malignancy potentially impairing immune function. ? Will start patient on Zosyn and doxycycline (12/18--) ? Wound care referral ordered ? Blood cultures ordered 12/18, no growth after 24 hours ? Nasal MRSA swab ordered #Extensive lymphadenopathy, suspicious for malignancy Patient has significant and extensive lymphadenopathy throughout cervical chain and in axilla. This lymphadenopathy was present since March 2024 and biopsies were previously taken in the past of this lymphadenopathy, but pathology was inconclusive due to extensive necrosis of the collected tissue. Source is likely malignant, likely from breast malignancy given patient's family history and prior imaging suspicious for breast masses. CT chest/abdomen/pelvis showed extensive metastatic cervical, left supraclavicular, and mediastinal lymphadenopathy. CT soft tissue neck also showed bulky cervical and supraclavicular metastatic lymphadenopathy, suspicious for osseous metastatic disease. ? Consulted general surgery, Dr. Emmanuel who is familiar with the patient, to perform biopsy retrieval ? Biopsy planned for Thursday 12/21 ? Consulted oncology, appreciate recommendations #Ascites, likely malignant #Lower abdominal pain Patient stated that she had swelling of her abdomen over the last couple of weeks. Abdomen is noted to be stiff and tender to palpation. Given the patient's significant lymphadenopathy, this is most likely malignant ascites. Patient has abdominal pain that is most significant in left lower quadrant. CT chest/abdomen/pelvis showed prominent malignant ascites and a 31 mm hepatic metastasis. ? Paracentesis of the abdomen done on 12/20, removed 4850 cc of fluid ? Pending analysis of peritoneal fluid ? Started patient on morphine 1 mg IVP every 4 hours as needed for pain #Severe protein calorie malnutrition Patient stated that she has lost about 25 pounds over the last few months. Patient looks significantly cachectic with very prominent temporal wasting. Patient has noted to be significantly weak. Given patient's presentation, she is most likely very malnourished and if we fed too soon, the patient may suffer from refeeding syndrome. ? Dietitian referral ordered ? Diet started with clear liquids, will monitor patient for refeeding syndrome with daily phosphorus ? Mirtazapine 15 mg at night #Dysphagia Patient stated that she has difficulty swallowing. It feels as if food gets stuck in the middle of her chest. This is most likely due to mechanical compression from her extensive lymphadenopathy. Strictures are also possible, but this is less likely given her presentation. ? Speech therapy referral ordered, recommends diet of D2 and thin liquids due to mild oral phase dysphagia due to missing dentation ? Bedside nurse swallow eval ordered, patient passed bedside swallow screen #Suspected JUANJOSE, likely prerenal (resolving) In ED, the patient had a creatinine of 0.9. While this is within normal limits, with her previous visit the patient had a baseline creatinine of 0.5-0.7. The patient looks significantly dry and likely has poor oral intake given her other conditions such as dysphagia. Patient received 3 L of IV fluid hydration in ED. ? Will monitor daily labs ? Will continue IV fluid hydration if no improvement is noted over time ? Avoid nephrotoxic medications ? Renally dose medications #Hepatitis C #Transaminitis Patient has a history of hepatitis C that was uncovered on 04/10/2024 due to a reactive hepatitis C antibody test. In the ED, the patient had elevated AST of 85 with a ALT within normal limits at 31. Patient is also noted to have a 31 mm hepatic mass, likely metastatic. CT chest abdomen pelvis showed 31 mm hepatic metastasis. ? Will continue to monitor with daily labs ? Avoid hepatotoxic medications ? Hepatically adjust medications as necessary #Hypovolemic, hypochloremic hyponatremia #Hypomagnesemia Patient presented with sodium of 129, chloride of 91, and appeared significantly dehydrated. These electrolyte imbalances are most likely due to poor oral intake. Patient received fluid resuscitation with 3 L of normal saline in the ED. ? Will monitor with daily labs ? Will resuscitate patient with IV fluids if necessary ? Patient had magnesium of 1.4 on repeat magnesium 12/18 overnight, was repleted by the night team #Polysubstance abuse Patient has a reported history of polysubstance abuse. In ED, the patient was positive for opiates, fentanyl, and methamphetamine on urine toxicology. While patient was to somnolent to discuss any recent use, the patient was noted to have a similar urine toxicology on 04/10/2024 during previous admission. Patient did not disclose smoking status, however per chart review, patient had smoking history of 1 pack/day for 10 years and now smokes 1-2 cigarettes per day. ? Will continue to monitor ? Referral to family welfare social work professor ordered ? Referral to smoking cessation educator ordered DVT Prophylaxis: Heparin GI Prophylaxis: Protonix Bowel: Senna Diet: D2 and thin liquids Hdez: N/A Lines: Peripheral IV Antibiotics: Zosyn & doxycycline (12/18--) Code Status: DNR/DNI Reason for Hospitalization: Purulent BLE cellulitis & lymphadenopathy Other Barriers to Discharge: Biopsy Patient plan of care was discussed with the senior resident Dr. Jiang (PGY-2) and attending physician Dr. Rula Verdugo, PGY1
--- NOTE | 2024-12-20 13:34 | XR_ITS ---
Examination: Ultrasound-guided paracentesis Abdominal sonogram limited Date and time of exam: December 20, 2024 1359 hours INDICATIONS: Cirrhosis, increasing ascites and abdominal distention this week Informed consent provided. A timeout was completed verifying correct patient, procedure, site, positioning, and special adequate movement if applicable. Technique: Multiple sonographic images of the abdomen have been obtained. Appropriate area for paracentesis was marked. Local anesthesia is obtained with 1% lidocaine. Yueh catheter is successfully introduced. Findings: Abdominal sonographic images demonstrate sufficient ascitic fluid for paracentesis. After placing the Yueh catheter, 4850 cc of fluid were successfully removed. During and after completion of the procedure the patient appear in satisfactory and stable condition with no complications observed. Estimated blood loss 0 cc Impression: Abdominal ascites Successful ultrasound-guided paracentesis as described above
--- NOTE | 2024-12-20 17:11 | PD.SURCONS ---
HPI Consult details History of present illness: 64F who initially presented late 2023 with right axillary lymphadenopathy s/p biopsy which showed extensive necrosis, who was lost to follow up and then presented 12/18 with weakness, abdominal and back pain as well as significant weight loss. Unfortunately CT has shown likely malignant ascites, diffuse osseous lesions as well as bulky lymphadenopathy in the axilla and supraclavicular regions. Pt has been seen by oncology and biopsy has been recommended to determine the exact nature of her malignancy Review of Systems Review of Systems ROS Unobtainable: unobtainable due to mental condition Meds Home Medications and Allergies Allergies Allergy/AdvReac Type Severity Reaction Status Date / Time No Known Allergies Allergy Verified 06/03/24 11:50 Exam Vital Signs Temp Pulse Resp BP Pulse Ox O2 Del Method O2 Flow Rate 97.3 F 82 13 105/69 92 L Nasal Cannula 1.5 12/20/24 12:12/20/24 12:12/20/24 12:12/20/24 12:12/20/24 12:12/20/24 12:12/20/24 12:00 Constitutional Constitutional: cachectic and chronically ill appearing Routine Neck Exam Comments: palpable lymph nodes in the left and right neck Routine Respiratory Exam Respiratory: Present no resp distress Routine Abdominal Exam Abdominal: Present soft and distended (pt underwent paracentesis of >4L after my exam) Routine Extremities Exam Comments: bulky lymph nodes in the left axilla Results Results: Laboratory Laboratory results: results reviewed Results: Imaging CT scan - abdomen: report reviewed and image reviewed CT scan - pelvis: report reviewed and image reviewed Assessment & Plan Plan 64F who first presented in late 2023 with right axillary lymphadenopathy with inconclusive biopsies, lost to follow up now presenting with severe progression of disease. As biopsy has been requested for definitive diagnosis I offered excision of her left axillary lymph nodes (to avoid the blood vessels in the neck). It is possible the ascitic fluid could give a diagnosis but if these modes are both inconclusive I would recommend consideration of IR biopsy NPO after midnight for excisional biopsy of left axillary lymph nodes
[2024-12-20] MEDS: DOXYCYCLINE 100 MG TABLET PO (21:26)
[2024-12-20] MEDS: MIRTAZAPINE 15 MG TABLET PO (21:26)
[2024-12-21] VITALS (21 sets, daily range): BP systolic 101–134; BP diastolic 60–84; PULSE 67–99; RESP 12–19; TEMP 36.1–36.7; O2SAT 94–100; BMI 21.7
[2024-12-21] MEDS: MIDODRINE 5 MG TABLET 10 MG PO ×3 (04:09→21:21)
[2024-12-21] MEDS: MORPHINE SULF INJ 10 MG/ML VIAL IVP ×2 (04:11→20:10)
[2024-12-21] MEDS: PIPER/TAZO 3.375 GM PREMIX 3.375 GM/50 ML BAG IV ×3 (05:16→21:20)
[2024-12-21 06:20] LABS: Basophils # (Auto) 0.0 Thou/mm3 (0.0-0.2); Basophils % (Auto) 0 % (0-2.5); Eosinophils # (Auto) 0.0 Thou/mm3 (0.0-0.5); Eosinophils % (Auto) 0 % (0-10); Hematocrit 42.2 % (36.0-46.0); Hemoglobin 13.3 g/dL (12.0-16.0); Immature Granulocytes Auto 0.07 Thou/mm3 (0.00-0.00); Lymphocytes # (Auto) 0.7 Thou/mm3 (1.0-4.8); Lymphocytes % (Auto) 6 % (10-50); Mean Corpuscular HGB Conc 31.5 g/dl (31.0-37.0); Mean Corpuscular Hemoglobin 26.2 pg (25.0-35.0); Mean Corpuscular Volume 83 fL (80-100); Monocytes # (Auto) 0.7 Thou/mm3 (0.0-0.8); Monocytes % (Auto) 5 % (0-12); Neutrophils # (Auto) 11.6 Thou/mm3 (1.8-7.7); Neutrophils % (Auto) 89 % (37-80); Nucleated Red Blood Cell # 0.00 Thou/mm3 (0.00-0.00); Nucleated Red Blood Cell % 0 /100 WBC (0); Platelet Count 312 Thou/mm3 (140-440); RDW Standard Deviation 54.0 fL (36.4-46.3); Red Blood Count 5.08 Miln/mm3 (4.00-5.20); White Blood Count 13.1 Thou/mm3 (3.6-11.0)
[2024-12-21 06:51] LABS: Alanine Aminotransferase 19 U/L (10-49); Albumin, Serum 2.6 gm/dL (3.4-4.8); Albumin/Globulin Ratio 0.7 (1.2-2.2); Alkaline Phosphatase 83 U/L (46-116); Anion Gap 9 (7-16); Aspartate Amino Transferase 49 U/L (0-34); BUN/Creatinine Ratio 20 Ratio (12-20); Bilirubin,Total 0.8 mg/dL (0.3-1.2); Blood Urea Nitrogen 14 mg/dL (9-23); Calcium 9.0 mg/dL (8.3-10.6); Calcium (Corrected) 10.1 mg/dL (8.5-10.1); Carbon Dioxide 27.0 mMol/L (20.0-31.0); Chloride 99 mMol/L (98-107); Creatinine (Component) 0.7 mg/dL (0.6-1.3); Estimated Creatinine Clearance 78.0 mL/min (>60); Globulin 3.5 gm/dL (2.3-3.5); Glucose 67 mg/dL (74-106); Magnesium 1.8 mg/dL (1.6-2.6); Osmolality,Calculated 268 (275-295); Phosphorous 3.0 mg/dL (2.4-5.1); Potassium 4.8 mMol/L (3.4-5.1); Sodium 135 mMol/L (136-145); Total Protein 6.1 gm/dL (5.7-8.2); eGFR > 60 See Note
[2024-12-21] MEDS: DOXYCYCLINE 100 MG TABLET PO ×2 (09:10→20:10)
[2024-12-21] MEDS: PANTOPRAZOLE 40 MG TABLET PO (09:10)
--- NOTE | 2024-12-21 09:51 | ESPR_ITS ---
<Statement entered by Ernie Horta MD - 01/03/25 07:42> I reviewed above note and agree with findings and plans. I have also personally examined the patient with medicine team and went over assessment and plan with medical team including internet cafe manager and resident physician. <Statement entered by Kaye Jiang MD - 12/21/24 21:42> Pt is seen at bedside, appears to be increasing lethargic and somnolent, continues to complain of significant back pain. pt is s/p paracenthesis yesterday and states she does feel better due to all the fluid being removed. Pt is scheduled for biopsy today. Pt had poor urinary output, bladder scan showed urinary retention therefore baez catheter insertion is ordered. Will also add pain control for break through pain. BG this morning was low therefore amp of D5 was given. Patient was seen and examined by me personally. I have directly supervised and reviewed documentation by the team resident and agree with its findings. ------- Plan of care was discussed with the attending, Dr. Rula Jiang, PGY-2 Documentation for date of: 12/21/24 Subjective Subjective Interval history: Overnight events: No acute events overnight. Patient was seen and examined at bedside. AM vitals and labs reviewed. Patient appears to be more tired today, but it was noted that no family is in the room the patient is generally more interactive if family is in the room. No complaints at this time. Discussed with nursing staff about urinary status, so nursing staff did bladder scan which found about 900 cc of urine, which became 500 cc after the patient had an episode of urination. Baez ordered, which removed about 900 cc of urine per nursing staff. Pending biopsy by general surgery. Dietitian recommendations appreciated, will change diet to dysphagia diet mechanically altered, Ensure Plus 240 ml twice daily with lunch and dinner, thiamine 100 mg/day for 7 days, and multivitamins/minerals. Review of systems otherwise negative except for what is mentioned above. Exam Vital Signs Temp Pulse Resp BP Pulse Ox O2 Del Method O2 Flow Rate 98.0 F 94 15 105/60 95 Nasal Cannula 1.5 12/21/24 08:00 12/21/24 09:09 12/21/24 08:00 12/21/24 09:09 12/21/24 08:00 12/21/24 08:00 12/21/24 08:00 Narrative Exam Physical Exam: General: Lethargic, no acute distress. Skin: Warm, dry, intact, no obvious rash. Head: Normocephalic, atraumatic. Eye: Normal conjunctiva, PERRL. Cardiovascular: Regular rate and rhythm, no murmur, +S1/S2. Respiratory: Lungs are clear to auscultation, respirations unlabored, no crackles, no wheezing. Gastrointestinal: Soft, nontender, non-distended. No guarding or rebound tenderness. Extremities: No edema, no cyanosis, no clubbing. Objective Labs 12/21/24 05:24 12/21/24 05:24 Labs: Laboratory Results - last 24 hr 12/21/24 05:24 WBC 13.1 H RBC 5.08 Hgb 13.3 Hct 42.2 MCV 83 MCH 26.2 MCHC 31.5 RDW Std Deviation 54.0 H Plt Count 312 D Neut % (Auto) 89 H Lymph % (Auto) 6 L [place] % (Auto) 5 Eos % (Auto) 0 Baso % (Auto) 0 Neut # (Auto) 11.6 H Lymph # (Auto) 0.7 L [place] # (Auto) 0.7 Eos # (Auto) 0.0 Baso # (Auto) 0.0 Immature Gran # (Auto) 0.07 H Absolute Nucleated RBC 0.00 Immature Gran % 1 H Nucleated RBC % 0 Sodium 135 L Potassium 4.8 D Chloride 99 Carbon Dioxide 27.0 Anion Gap 9 BUN 14 Creatinine 0.7 Estim Creat Clear Calc 78.0 eGFR > 60 BUN/Creatinine Ratio 20 Glucose 67 L Calculated Osmolality 268 L Calcium 9.0 Corrected Calcium 10.1 Phosphorus 3.0 Magnesium 1.8 Total Bilirubin 0.8 AST 49 H ALT 19 Alkaline Phosphatase 83 Total Protein 6.1 Albumin 2.6 L Globulin 3.5 Albumin/Globulin Ratio 0.7 L ABG Interpretation ABG results: 12/19/24 12/20/24 04:20 01:44 ABG pH 7.41 ABG pCO2 41 ABG pO2 80 L ABG HCO3 26 ABG O2 Saturation 96 ABG Base Excess 1 VBG pH 7.34 VBG pCO2 47 VBG pO2 40 VBG Base Excess -1 Quality Measures Quality Measures VTE prophylaxis Assessment & Plan Assessment Current Active Medications: Generic Name Dose Route Start Last Admin Trade Name Freq PRN Reason Stop Dose Admin Acetaminophen 325 mg 12/18/24 14:30 Acetaminophen 325 Mg Tablet PO 01/17/25 14:29 Q6H PRN Fever >101.5 or pain (1-3) Hydrocodone Bitart/Acetaminophen 1 tab 12/20/24 09:47 Hydrocodone/Apap 5/325 Tablet PO 12/23/24 13:57 Q6HR PRN PAIN SCALE 4-6 Doxycycline Hyclate 100 mg 12/20/24 21:00 12/21/24 09:10 Doxycycline 100 Mg Tablet PO 12/25/24 09:01 100 mg BID ALEXANDREA Administration Protocol Piperacillin/Tazobactam/Dextrose 3.375 gm in 50 mls @ 12.5 mls/hr 12/18/24 22:00 12/21/24 05:16 Zosyn IV 12/25/24 21:59 12.5 mls/hr Q8HR ALEXANDREA Administration Lactated Ringer's 1,000 mls @ 150 mls/hr 12/19/24 17:19 12/21/24 05:17 Lactated Ringers IV 01/18/25 17:18 0 mls/hr .Q6H40M ALEXANDREA Infusion Midodrine 10 mg 12/20/24 03:30 12/21/24 09:09 Midodrine 5 Mg Tablet PO 01/19/25 03:29 10 mg Q6H ALEXANDREA Administration Mirtazapine 15 mg 12/19/24 21:00 12/20/24 21:26 Mirtazapine 15 Mg Tablet PO 01/18/25 20:59 15 mg HS ALEXANDREA Administration Morphine Sulfate 1 mg 12/20/24 09:45 12/21/24 04:11 Morphine Sulf Inj 10 Mg/Ml Vial IVP 12/25/24 09:44 1 mg Q4HR PRN Administration PAIN 7-10 Nicotine 21 mg 12/19/24 09:00 12/21/24 09:10 Nicotine Patch 21 Mg/24 Hr Patch.Td24 TOP 01/18/25 08:59 Not Given QDAY ALEXANDREA Ondansetron HCl 4 mg 12/18/24 14:30 Ondansetron Inj 2 Mg/Ml Inj 2 Ml IVP 01/17/25 14:29 Q6H PRN NAUSEA OR VOMITING Protocol Pantoprazole Sodium 40 mg 12/21/24 09:00 12/21/24 09:10 Pantoprazole 40 Mg Tablet PO 01/20/25 08:59 40 mg QDAY ALEXANDREA Administration Protocol Sennosides 1 tab 12/19/24 09:00 12/21/24 09:10 Senna Tablet PO 01/18/25 08:59 1 tab QDAY ALEXANDREA Administration Protocol Plan Mrs. Asif is a 64 year old female with a history of pancreatitis, hep C, polysubstance use, and prior alcohol use who presents to [facility] ED on 12/18 due to increasing abdominal pain and back pain. Patient was admitted for purulent cellulitis of bilateral lower extremities and extensive lymphadenopathy with suspicion for malignancy. #Purulent cellulitis of bilateral lower extremities Patient has significant swelling of bilateral lower extremities from ankle to knee in ED. Patient has several areas of skin deterioration and ulceration with purulent drainage. Patient does not meet criteria for sepsis given lack of end- organ damage. Given purulent drainage, this is most likely involving staph infection. Will also cover for Pseudomonas and MRSA given overall frail appearance of patient with possible underlying malignancy potentially impairing immune function. ? Will start patient on Zosyn and doxycycline (12/18--) ? Wound care referral ordered ? Blood cultures ordered 12/18, no growth after 24 hours ? Nasal MRSA swab ordered #Extensive lymphadenopathy, suspicious for malignancy Patient has significant and extensive lymphadenopathy throughout cervical chain and in axilla. This lymphadenopathy was present since March 2024 and biopsies were previously taken in the past of this lymphadenopathy, but pathology was inconclusive due to extensive necrosis of the collected tissue. Source is likely malignant, likely from breast malignancy given patient's family history and prior imaging suspicious for breast masses. CT chest/abdomen/pelvis showed extensive metastatic cervical, left supraclavicular, and mediastinal lymphadenopathy. CT soft tissue neck also showed bulky cervical and supraclavicular metastatic lymphadenopathy, suspicious for osseous metastatic disease. ? Consulted general surgery, Dr. Emmanuel who is familiar with the patient, to perform biopsy retrieval ? Biopsy planned for Thursday 12/21 ? Consulted oncology, appreciate recommendations #Ascites, likely malignant #Lower abdominal pain Patient stated that she had swelling of her abdomen over the last couple of weeks. Abdomen is noted to be stiff and tender to palpation. Given the patient's significant lymphadenopathy, this is most likely malignant ascites. Patient has abdominal pain that is most significant in left lower quadrant. CT chest/abdomen/pelvis showed prominent malignant ascites and a 31 mm hepatic metastasis. ? Paracentesis of the abdomen done on 12/20, removed 4850 cc of fluid ? Pending analysis of peritoneal fluid ? Started patient on morphine 1 mg IVP every 4 hours as needed for pain #Severe protein calorie malnutrition Patient stated that she has lost about 25 pounds over the last few months. Patient looks significantly cachectic with very prominent temporal wasting. Patient has noted to be significantly weak. Given patient's presentation, she is most likely very malnourished and if we fed too soon, the patient may suffer from refeeding syndrome. ? Dietitian referral ordered, recommended Ensure Plus 240 ml twice daily with lunch and dinner, thiamine 100 mg/day for 7 days, and multivitamins/minerals ? Diet started with clear liquids, will monitor patient for refeeding syndrome with daily phosphorus, is now dysphagia mechanically altered ? Mirtazapine 15 mg at night #Dysphagia Patient stated that she has difficulty swallowing. It feels as if food gets stuck in the middle of her chest. This is most likely due to mechanical compression from her extensive lymphadenopathy. Strictures are also possible, but this is less likely given her presentation. ? Speech therapy referral ordered, recommends diet of D2 and thin liquids due to mild oral phase dysphagia due to missing dentation ? Bedside nurse swallow eval ordered, patient passed bedside swallow screen #Suspected JUANJOSE, likely prerenal (resolving) In ED, the patient had a creatinine of 0.9. While this is within normal limits, with her previous visit the patient had a baseline creatinine of 0.5-0.7. The patient looks significantly dry and likely has poor oral intake given her other conditions such as dysphagia. Patient received 3 L of IV fluid hydration in ED. ? Will monitor daily labs ? Will continue IV fluid hydration if no improvement is noted over time ? Avoid nephrotoxic medications ? Renally dose medications #Hepatitis C #Transaminitis Patient has a history of hepatitis C that was uncovered on 04/10/2024 due to a reactive hepatitis C antibody test. In the ED, the patient had elevated AST of 85 with a ALT within normal limits at 31. Patient is also noted to have a 31 mm hepatic mass, likely metastatic. CT chest abdomen pelvis showed 31 mm hepatic metastasis. ? Will continue to monitor with daily labs ? Avoid hepatotoxic medications ? Hepatically adjust medications as necessary #Hypovolemic, hypochloremic hyponatremia #Hypomagnesemia Patient presented with sodium of 129, chloride of 91, and appeared significantly dehydrated. These electrolyte imbalances are most likely due to poor oral intake. Patient received fluid resuscitation with 3 L of normal saline in the ED. ? Will monitor with daily labs ? Will resuscitate patient with IV fluids if necessary ? Patient had magnesium of 1.4 on repeat magnesium 12/18 overnight, was repleted by the night team #Polysubstance abuse Patient has a reported history of polysubstance abuse. In ED, the patient was positive for opiates, fentanyl, and methamphetamine on urine toxicology. While patient was to somnolent to discuss any recent use, the patient was noted to have a similar urine toxicology on 04/10/2024 during previous admission. Patient did not disclose smoking status, however per chart review, patient had smoking history of 1 pack/day for 10 years and now smokes 1-2 cigarettes per day. ? Will continue to monitor ? Referral to bilingual social worker ordered ? Referral to smoking cessation educator ordered DVT Prophylaxis: Heparin GI Prophylaxis: Protonix Bowel: Senna Diet: D2 mech altered Baez: N/A Lines: Peripheral IV Antibiotics: Zosyn & doxycycline (12/18--) Code Status: DNR/DNI Reason for Hospitalization: Purulent BLE cellulitis & lymphadenopathy Other Barriers to Discharge: N/A Patient plan of care was discussed with the senior resident Dr. Jiang (PGY-2) and attending physician Dr. Rula Verdugo, PGY1
[2024-12-21] MEDS: DEXTROSE 50%-WATER INJ 50 ML SYRINGE IVP (11:02)
[2024-12-21 11:39] LABS: Albumin, Peritoneal Fluid 1.3 gm/dL; Amylase,Peritoneal Fluid 32 IU/L; Glucose,Peritoneal Fluid 80 mg/dL; LDH,Peritoneal Fluid 184 IU/L; Protein Total,Peritoneal Fluid 3 g/dL
--- NOTE | 2024-12-21 13:05 | PC.CM ---
I received a referral for home health. I spoke to Bel to see if she could follow up to see if patient has a PCP.
--- NOTE | 2024-12-21 13:19 | PD.SUROPNT ---
Date of Procedure 12/21/24 Pre Op Diagnosis Metastatic cancer of unknown origin Post Op Diagnosis Same Procedure Excisional biopsy of left axillary lymph node Findings Enlarged left axillary lymph node Procedure Description After discussion of risks and benefits, patient was brought to the operating room and MAC anesthesia was induced. She was placed in partial right decubitus with proper padding in the left arm was raised above her head. The left axilla was prepped and draped in the usual sterile fashion. After timeout the planned incision and surrounding skin was infiltrated with 20 cc of half percent Marcaine. The planned incision site was grasped with Adson forceps and patient did not react. A transverse incision was then made with a #15 blade approximately 2 cm directly above the larger of the 2 palpable left axillary lymph nodes. The subcutaneous tissue was divided with a combination of blunt dissection and electrocautery and ultimately the large lymph node was excised intact. The wound bed was irrigated and hemostasis was achieved with electrocautery and reinforced with Surgicel. The incision was closed with a 2-0 Vicryl followed by 4-0 Monocryl and was then reinforced with Dermabond. Patient was awoken and brought to PACU in stable condition Pathology / specimen Other (Left axillary lymph node) Estimated Blood Loss 10 Surgeon Briseyda Emmanuel MD Surgical Staff Operation Date: 12/21/24 12:45 <No data on this case meets the specified criteria>
--- NOTE | 2024-12-21 13:25 | SUR.PHASEI ---
9920 Patient arrived to recovery sleeping comfortably in bed, on oxygen 8L via oxy mask, breathing unlabored, vital signs stable, dressing intact to left axila; dermabond, urinary catheter 16F in place with leg secure; draining to gravity, report received from Pat ANTONY and Rigoberto ADAM
[2024-12-21 14:16] LABS: Peritoneal Fluid WBC 175 /cmm
[2024-12-21 14:31] LABS: Peritoneal Fluid Appearance Hazy; Peritoneal Fluid Color Yellow; Peritoneal Fluid Mononuclear 85 %; Peritoneal Fluid Polynuclear 15 %; RBC,Peritoneal Fluid 2000 /cmm
--- NOTE | 2024-12-21 14:49 | SUR.PHASEI ---
1439 Report given to Raul RN, patient meets discharge criteria from recovery, resting comfortably in bed, on oxygen 2L via nasal cannula, breathing unlabored, vital signs stable, denies pain and nausea 1449 patient transported via bed to room 272 without incidence, patient resting comfortably in bed with call light in reach and family at bedside when this staff writer left patients room, GLASS PRESSER at bedside with patient as well.
[2024-12-21] MEDS: RINGERS LACTATED 1000 ML 1,000 ML 150 ML IV (20:09)
[2024-12-21] MEDS: MULTIVITAMIN 15 ML UDC PO (20:10)
[2024-12-21] MEDS: MIRTAZAPINE 15 MG TABLET PO (20:10)
[2024-12-21] MEDS: HEPARIN SOD INJ 5000 UNIT/ML VIAL SC (21:21)
[2024-12-22] VITALS (11 sets, daily range): BP systolic 115–131; BP diastolic 69–86; PULSE 83–105; RESP 12–20; TEMP 36.1–36.7; O2SAT 92–97
[2024-12-22] MEDS: MORPHINE SULF INJ 10 MG/ML VIAL IVP ×2 (01:33→10:40)
--- NOTE | 2024-12-22 05:37 | PC.NURSE ---
DR. MOONEY MADE AWARE OF 9 BEATS OF VTACH. PT RESTING COMFORTABLY IN BED. NO C/O PAIN AT THE TIME.
[2024-12-22] MEDS: PIPER/TAZO 3.375 GM PREMIX 3.375 GM/50 ML BAG IV ×2 (05:39→14:31)
[2024-12-22 06:11] LABS: Basophils # (Auto) 0.0 Thou/mm3 (0.0-0.2); Basophils % (Auto) 0 % (0-2.5); Eosinophils # (Auto) 0.0 Thou/mm3 (0.0-0.5); Eosinophils % (Auto) 0 % (0-10); Hematocrit 38.3 % (36.0-46.0); Hemoglobin 12.2 g/dL (12.0-16.0); Immature Granulocytes Auto 0.08 Thou/mm3 (0.00-0.00); Lymphocytes # (Auto) 0.7 Thou/mm3 (1.0-4.8); Lymphocytes % (Auto) 5 % (10-50); Mean Corpuscular HGB Conc 31.9 g/dl (31.0-37.0); Mean Corpuscular Hemoglobin 25.8 pg (25.0-35.0); Mean Corpuscular Volume 81 fL (80-100); Monocytes # (Auto) 0.8 Thou/mm3 (0.0-0.8); Monocytes % (Auto) 6 % (0-12); Neutrophils # (Auto) 10.8 Thou/mm3 (1.8-7.7); Neutrophils % (Auto) 88 % (37-80); Nucleated Red Blood Cell # 0.00 Thou/mm3 (0.00-0.00); Nucleated Red Blood Cell % 0 /100 WBC (0); Platelet Count 228 Thou/mm3 (140-440); RDW Standard Deviation 54.1 fL (36.4-46.3); Red Blood Count 4.72 Miln/mm3 (4.00-5.20); White Blood Count 12.3 Thou/mm3 (3.6-11.0)
[2024-12-22 06:59] LABS: Alanine Aminotransferase 16 U/L (10-49); Albumin, Serum 2.2 gm/dL (3.4-4.8); Albumin/Globulin Ratio 0.7 (1.2-2.2); Alkaline Phosphatase 73 U/L (46-116); Anion Gap 12 (7-16); Aspartate Amino Transferase 50 U/L (0-34); BUN/Creatinine Ratio 42 Ratio (12-20); Bilirubin,Total 0.7 mg/dL (0.3-1.2); Blood Urea Nitrogen 25 mg/dL (9-23); Carbon Dioxide 24.5 mMol/L (20.0-31.0); Chloride 99 mMol/L (98-107); Creatinine (Component) 0.6 mg/dL (0.6-1.3); Estimated Creatinine Clearance 89.8 mL/min (>60); Globulin 3.3 gm/dL (2.3-3.5); Glucose 100 mg/dL (74-106); LDH (Lactate Dehydrogenase) 500 U/L (120-246); Magnesium 1.3 mg/dL (1.6-2.6); Osmolality,Calculated 274 (275-295); Phosphorous 2.6 mg/dL (2.4-5.1); Potassium 4.6 mMol/L (3.4-5.1); Sodium 135 mMol/L (136-145); Total Protein 5.5 gm/dL (5.7-8.2); eGFR > 60 See Note
[2024-12-22 07:08] LABS: Calcium 8.7 mg/dL (8.3-10.6); Calcium (Corrected) 10.1 mg/dL (8.5-10.1)
[2024-12-22] MEDS: DOXYCYCLINE 100 MG TABLET PO (09:24)
[2024-12-22] MEDS: MIDODRINE 5 MG TABLET 10 MG PO ×2 (09:25→15:41)
[2024-12-22] MEDS: MULTIVITAMIN 15 ML UDC PO (09:26)
[2024-12-22] MEDS: PANTOPRAZOLE 40 MG TABLET PO (09:26)
[2024-12-22] MEDS: HEPARIN SOD INJ 5000 UNIT/ML VIAL SC (09:31)
[2024-12-22] MEDS: THIAMINE INJ 100 MG/ML VIAL 2 ML IM (09:32)
--- NOTE | 2024-12-22 09:35 | PD.RESPRO ---
Documentation for date of: 12/22/24 Exam Vital Signs Temp Pulse Resp BP Pulse Ox O2 Del Method O2 Flow Rate 96.9 F 95 16 121/78 94 L Nasal Cannula 2 12/22/24 08:00 12/22/24 09:25 12/22/24 08:00 12/22/24 09:25 12/22/24 08:00 12/22/24 08:00 12/22/24 08:00 Objective Labs 12/22/24 05:07 12/22/24 05:07 Labs: Laboratory Results - last 24 hr 12/20/24 12/22/24 15:20 05:07 WBC 12.3 H RBC 4.72 Hgb 12.2 Hct 38.3 MCV 81 MCH 25.8 MCHC 31.9 RDW Std Deviation 54.1 H Plt Count 228 D Neut % (Auto) 88 H Lymph % (Auto) 5 L [place] % (Auto) 6 Eos % (Auto) 0 Baso % (Auto) 0 Neut # (Auto) 10.8 H Lymph # (Auto) 0.7 L [place] # (Auto) 0.8 Eos # (Auto) 0.0 Baso # (Auto) 0.0 Immature Gran # (Auto) 0.08 H Absolute Nucleated RBC 0.00 Immature Gran % 1 H Nucleated RBC % 0 Sodium 135 L Potassium 4.6 Chloride 99 Carbon Dioxide 24.5 Anion Gap 12 BUN 25 H Creatinine 0.6 Estim Creat Clear Calc 89.8 eGFR > 60 BUN/Creatinine Ratio 42 H Glucose 100 Calculated Osmolality 274 L Calcium 8.7 Corrected Calcium 10.1 Phosphorus 2.6 Magnesium 1.3 L Total Bilirubin 0.7 AST 50 H ALT 16 Alkaline Phosphatase 73 Lactate Dehydrogenase 500 H Total Protein 5.5 L Albumin 2.2 L Globulin 3.3 Albumin/Globulin Ratio 0.7 L Peritoneal Color Yellow Peritoneal Appearance Hazy Peritoneal WBC 175 Peritoneal RBC 2000 Periton Polynucl WBCs 15 Periton Mononucl WBCs 85 Peritoneal Tot Protein 3 Peritoneal Albumin 1.3 Peritoneal LDH 184 Peritoneal Glucose 80 Peritoneal Amylase 32 ABG Interpretation ABG results: 12/19/24 12/20/24 04:20 01:44 ABG pH 7.41 ABG pCO2 41 ABG pO2 80 L ABG HCO3 26 ABG O2 Saturation 96 ABG Base Excess 1 VBG pH 7.34 VBG pCO2 47 VBG pO2 40 VBG Base Excess -1 Quality Measures Quality Measures VTE prophylaxis Assessment & Plan Assessment Current Active Medications: Generic Name Dose Route Start Last Admin Trade Name Freq PRN Reason Stop Dose Admin Acetaminophen 325 mg 12/18/24 14:30 Acetaminophen 325 Mg Tablet PO 01/17/25 14:29 Q6H PRN Fever >101.5 or pain (1-3) Hydrocodone Bitart/Acetaminophen 1 tab 12/20/24 09:47 Hydrocodone/Apap 5/325 Tablet PO 12/23/24 13:57 Q6HR PRN PAIN SCALE 4-6 Doxycycline Hyclate 100 mg 12/20/24 21:00 12/22/24 09:24 Doxycycline 100 Mg Tablet PO 12/25/24 09:01 100 mg BID ALEXANDREA Administration Protocol Heparin Sodium (Porcine) 5,000 unit 12/21/24 20:30 12/21/24 21:21 Heparin Sod Inj 5000 Unit/Ml Vial SC 01/04/25 20:29 5,000 unit Q12HR ALEXANDREA Administration Piperacillin/Tazobactam/Dextrose 3.375 gm in 50 mls @ 12.5 mls/hr 12/18/24 22:00 12/22/24 05:39 Zosyn IV 12/25/24 21:59 12.5 mls/hr Q8HR ALEXANDREA Administration Magnesium Sulfate 4 gm in 50 mls @ 12.5 mls/hr 12/22/24 08:08 Magnesium Sulfate Ivpb IV 12/22/24 12:07 X1 ONE Magnesium Sulfate 2 gm in 50 mls @ 25 mls/hr 12/22/24 12:30 Magnesium Sulfate Ivpb IV 12/22/24 14:29 X1 ONE Midodrine 10 mg 12/20/24 03:30 12/22/24 09:25 Midodrine 5 Mg Tablet PO 01/19/25 03:29 10 mg Q6H ALEXANDREA Administration Mirtazapine 15 mg 12/19/24 21:00 12/21/24 20:10 Mirtazapine 15 Mg Tablet PO 01/18/25 20:59 15 mg HS ALEXANDREA Administration Morphine Sulfate 1 mg 12/20/24 09:45 12/22/24 01:33 Morphine Sulf Inj 10 Mg/Ml Vial IVP 12/25/24 09:44 1 mg Q4HR PRN Administration PAIN 7-10 Multivitamins/Minerals 15 ml 12/22/24 09:00 12/22/24 09:26 Multivitamin 15 Ml Udc PO 01/21/25 08:59 15 ml QDAY ALEXANDREA Administration Nicotine 21 mg 12/19/24 09:00 12/22/24 09:26 Nicotine Patch 21 Mg/24 Hr Patch.Td24 TOP 01/18/25 08:59 Not Given QDAY ALEXANDREA Ondansetron HCl 4 mg 12/18/24 14:30 Ondansetron Inj 2 Mg/Ml Inj 2 Ml IVP 01/17/25 14:29 Q6H PRN NAUSEA OR VOMITING Protocol Pantoprazole Sodium 40 mg 12/21/24 09:00 12/22/24 09:26 Pantoprazole 40 Mg Tablet PO 01/20/25 08:59 40 mg QDAY ALEXANDREA Administration Protocol Sennosides 1 tab 12/19/24 09:00 12/22/24 09:25 Senna Tablet PO 01/18/25 08:59 1 tab QDAY ALEXANDREA Administration Protocol Thiamine HCl 100 mg 12/22/24 09:00 Thiamine Inj 100 Mg/Ml Vial 2 Ml IM 12/29/24 08:59 QDAY ALEXANDREA
[2024-12-22] MEDS: Magnesium Sulfate 4 GM Ivpb 4 GM/50 ML BAG IV (10:31)
[2024-12-22] MEDS: MG HYD/AL HYD/SIME (Maalox Reg) SUSP 30 ML UDC 15 ML PO (10:40)
--- NOTE | 2024-12-22 11:10 | PC.SS ---
Addendum entered by Bel High 12/22/24 16:52: SS was informed by Shayy from [facility] she has met with pt and family and they are agreeable to [facility]. Shayy provided Winnie phone# [phone] to contact her with transport time. Shayy has informed DME delivery will be aroun 6pm and is aware transportation will be setup for 7pm. Pt will be returning home. SS has setup gurney transportation with at Lynnette from [facility] and Juanartis Gomes from [employer] who are both aware transportation is for a hospital d/c for today with [facility]. Ref# [id number]..? SS has requested [facility].? Per [email or web address] claim representative [facility] is not a guaranteed transport company.? Estimated time is 3-4 hours.? SS has requested transport time of 7pm and requested 3 liters of O2. SS has sent patient?s facesheet and ambulance form to [facility] using [employer].? SS has spoken to at [facility] who has confirmed transport and has been contacted by [facility]. Bedside nurse, Saeid and [place] are aware. Daisy is aware. Pt is aware. Ashlyn JOHNSON is aware. Ambulance transport form is on patient's facesheet. Addendum entered by Bel High 12/22/24 14:39: SS received call from sister, Olga who has chosen [facility] and is requesting to meet with Hospice claim representative. spoke to Shayy from [facility] who will meet with family after 2:30pm at bedside. SS has sent Hospice referral to [facility] using [employer]. Addendum entered by Bel High 12/22/24 12:13: SS spoke to Olga, patient's sister to confirm d/c to home with Hospice Services. Sister is requesting to meet with SS today after 2:15pm to discuss Hospice choices. Sister is aware SS has left [facility] at bedside. Sister is requesting DME, wheelchair, commode, side table, and home O2. Original Note: Follow up note: Pt is received IV Magnesium. SS met with pt to confirm d/c with Hospice (bedside nurse, [place] was present at bedside) and is requesting SS speak with her sister to chose Hospice agency. SS has left [employer] with Hospice choices and [facility] [employer]chures at bedside.
[2024-12-22] MEDS: POLYETHYLENE GLYCOL 17 GM PACKET 34 GM PO (12:10)
[2024-12-22] MEDS: Magnesium Sulfate 2 GM Ivpb 2 GM/50 ML BAG IV (14:31)
--- NOTE | 2024-12-22 15:27 | ESDS_ITS ---
<Statement entered by Ernie Horta MD - 01/03/25 07:43> I reviewed above note and agree with findings and plans. I have also personally examined the patient with medicine team and went over assessment and plan with medical team including journalism internship and resident physician. <Statement entered by Mio Tolentino MD - 12/23/24 15:03> Patient was seen and examined by me personally. I have reviewed the below documentation by the team resident and agree with its findings. Discharge plan was discussed with the attending, Dr. Horta. 64-year-old female with past medical history as below admitted to the hospital for purulent cellulitis of bilateral lower extremities, was started on Zosyn and doxycycline on admission, wound care was ordered. Blood cultures negative. Patient on presentation also had extensive lymphadenopathy with underlying suspicion of malignancy, general surgery was consulted and patient underwent excisional biopsy of left axillary lymph node for diagnostic purposes, oncology was consulted, patient will follow-up with CTC outpatient. Patient also noted to have ascites on presentation, underwent paracentesis on December 20 had 4.85 cc fluid removed, pending fluid analysis. Dietitian was consulted for underlying severe protein calorie malnutrition and patient was started on Ensure Plus, thiamine and multivitamins. Patient's underlying JUANJOSE resolved. Patient advised to follow-up outpatient with PCP for hepatitis C. Patient advised to stop smoking and drug use. Patient did have elevated lactate for the hospitalization, no signs of poor perfusion or decompensation noted, patient was started on midodrine as does have underlying liver disease. We stop trending lactic, patient's elevated lactate likely secondary to liver dysfunction versus hematological malignancy. With the progression of hospital course patient condition improved, patient is stable for discharge, patient discharged home with hospice. Mio Tolentino MD Internal Medicine, PGY-2 Planned Discharge Date 12/22/24 DS: Providers Provider Date of admission: 12/18/24 13:32 Primary care physician: Physician No Primary/Family Admitting Provider: Ernie Horta MD Attending Provider on Admission: Ernie Horta MD Consults: 12/18/24 13:33 Consult to General Surgery Stat Comment: Extensive lymphadenopathy, needs biopsy Consulting Provider: Briseyda Emmanuel 12/18/24 13:35 Consult to Oncology Stat Comment: Extensive lymphadenopathy, nini malignancy Consulting Provider: Sal Ireland 12/18/24 14:28 Referral Speech Therapy Routine Comment: 12/18/24 14:36 Referral Physical Therapy Routine Comment: Physician Instructions: Referral Wound Care Routine Comment: 12/18/24 14:43 Referral Smoking Cessation Counseling Routine Comment: Smoking Cessation Education Needed 12/18/24 16:33 Referral Registered Dietitian Routine Comment: Protein Calorie Malnutrition 12/18/24 17:33 Health Equity Referral - Transportation Routine Comment: Positive screening for transportation needs. 12/18/24 18:38 Referral Wound Care Routine Comment: 12/20/24 12:14 Referral OP Wound Healing Dept Routine Comment: BLE lymphedema 12/22/24 09:14 Referral Hospice Stat Comment: Attending Provider on DC: Ernie Horta Discharging Provider: Cyril Verdugo, Anticipated date of discharge: 12/22/24 DS: Diagnosis Problem List Completed Was Problem List Reviewed/Reconciled?: Yes Hospital Course Hospital Course Hospital course: Reason for hospitalization:?Purulent cellulitis of bilateral lower extremities & extensive lymphadenopathy, suspicious for malignancy Summary: This patient is a 64 year old female with a history of pancreatitis, hep C, polysubstance use, and prior alcohol use who presents to [facility] ED on 12/18 due to increasing abdominal pain and back pain. Patient was admitted for purulent cellulitis of bilateral lower extremities and extensive lymphadenopathy with suspicion for malignancy. This issue likely started all the way back in March 2024 when the patient sought medical care at [facility] for a mass in the right axillary region. The patient received 2 biopsies, however both were inconclusive due to extensive necrosis. The patient was advised to follow-up with outpatient general surgery, but was lost to follow-up after being advised to obtain a mammogram, breast ultrasound, and PET/CT. The patient was also advised to follow-up with oncology, however the patient never rescheduled after an appointment area for her first visit. The last point of contact the patient had with [facility] was her general surgery follow-up in 06/03/2024. It would be several months until the patient presented to [facility] ED on 12/18 as stated above. The patient was somnolent, complaining of back pain, generalized weakness, had worsening swelling of her stomach, swelling of her legs bilaterally with pain, and about a 25 pound weight loss over the last few months. The patient had extensive at lymphadenopathy, which is supported by imaging, pointing to a likely malignant cause. Patient was started on piperacillin/tazobactam and doxycycline on 12/18 for management of her purulent cellulitis. General surgery was consulted for biopsy and oncology was consulted for suspected malignancy. Biopsy was obtained on 12/21. Oncology recommended patient follow-up outpatient once biopsy results return. Patient was noted to have urinary retention during hospitalization. On 12/22, the patient decided that she would like home hospice. Patient's vitals were stable and labs were stable during that discussion. Patient medically cleared to discharge back home with home hospice on 12/22 with Hdez catheter. Imaging: ? CT chest/abdomen/pelvis 12/18/2024: Extensive metastatic cervical, left supraclavicular, and mediastinal lymphadenopathy. Left chest mass and bulky left axillary lymphadenopathy. Extensive mediastinal lymphadenopathy. 31 mm of hepatic metastasis. Extensive abdominal and pelvic lymphadenopathy. Prominent malignant ascites. Suspicious for diffuse osteoblastic metastatic disease. ? CT head 12/18/2024: 8 mm low-density lesion left brainstem consistent with infarct which may be old, clinical correlation advised. ? CT soft tissue neck 12/18/2024: Extensive bulky cervical and supra clavicular metastatic lymphadenopathy. Suspicious for osseous metastatic disease. Discharge Recommendations: - Follow up with us at the [facility] by calling [phone], you are scheduled to see us at 9:30 am on FridayDec [address] Verdugo - It is VERY important you follow up with Oncology Dr. Ireland and Surgery with Dr. Emmanuel to follow up on your pathology reports. - You have been prescribed antibiotics, please complete the course - Continue rest of medications as previously prescribed - Return to the ED or call EMS if symptoms return and/or worsen Follow up at [facility] for wounds to lower legs. [address] [place] [address]. Call [phone] to schedule appointment. Wound care to lower legs: shower daily with over the counter hibicleanse soap. Pat dry. Cover open wounds with adaptic gauze. Layer with abd pad or dry gauze fluffs and secure with kerlix roll from base of toes to 2 fingers below the knee. Repeat with rich wrap for light compression. Change daily and as needed for falling off. Elevate legs above heart level while sitting or laying down to help with swelling. If active bleeding occurs, apply tight dressing and return to MD or ER. ? Notify primary doctor or return to Emergency Room if any of the following: ? Fever above 100.6? F. ? Increased pain ? Increase swelling ? Red streaks around your wound ? Drainage becomes foul smelling or changes color ? The wound is larger or deeper ? The wound looks dried out or dark ? Bleeding that does not stop with holding pressure If you don't have a PCP, you can make an appointment at the [facility]: [address] [place] [address] Hospital Diagnoses: #Purulent cellulitis of bilateral lower extremities #Extensive lymphadenopathy, suspicious for malignancy #Ascites, likely malignant #Lower abdominal pain #Severe protein calorie malnutrition #Dysphagia #Suspected JUANJOSE, likely prerenal #Hepatitis C #Transaminitis #Hypovolemic, hypochloremic hyponatremia #Hypomagnesemia #Urinary retention #Polysubstance abuse Patient plan of care was discussed with the senior resident Dr. Tolentino (PGY-2) and attending physician Dr. Horta. Cyril eVrdugo, PGY-1 Time spent discussing smoking cessation with patient: more than 10 minutes Time Spent with Patient Time attestation: Total time spent providing and/or coordinating discharge services: Time spent: Greater than 30 minutes Home Health Home Health Referral Orders: 12/21/24 10:39 Home Health Referral Routine Reason For Exam: PT Home-Bound The patient must either because of illness or injury, need the aid of supportive devices such as crutches, canes, wheelchairs, and walkers; the use of special transportation; or the assistance of another person in order to leave their place of residence; OR have a condition such that leaving his or her home is medically contraindicated. In addition, the patient also meets the following criteria: patient is normally unable to leave the home and leaving home requires considerable taxing effort. Addendum to Home Health Certification Practitioner's Certification: I certify that the patient has been under my care in the hospital and the care of attending physician (see below). We had a [id number] encounter on (see date below). My clinical findings indicate that the patient is home bound per the above criteria and the Home Health Services noted in these orders are medically necessary. The primary reason for the [id number] encounter is related to the fact that the patient requires home health services. 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 Wound Care: No IV Therapy: No RN Safety Evaluation: Yes RN to evaluate and create a plan of care that will produce positive outcomes. Palliative Treatment: No Palliative treatment and evaluate the need for hospice. Home Health Aide - Personal Care: No Home Health Aide to assist with any ADL's. Exam Vital Signs Temp Pulse Resp BP Pulse Ox O2 Del Method O2 Flow Rate 98.1 F 89 20 119/74 92 L Nasal Cannula 2 12/22/24 12:12/22/24 12:12/22/24 12:12/22/24 12:12/22/24 12:12/22/24 12:12/22/24 12:00 Narrative Exam Physical Exam: General: Lethargic, no acute distress. Skin: Warm, dry, intact, no obvious rash. Head: Normocephalic, atraumatic. Eye: Normal conjunctiva, PERRL. Cardiovascular: Regular rate and rhythm, no murmur, +S1/S2. Respiratory: Lungs are clear to auscultation, respirations unlabored, no crackles, no wheezing. Gastrointestinal: Soft, nontender, non-distended. No guarding or rebound tenderness. Extremities: No edema, no cyanosis, no clubbing. Discharge Plan Plan Patient Disposition: Home w/HOSPICE Patient condition on transfer: Stable Care Plan Goals: -Follow up with us at the [facility] by calling [phone], you are scheduled to see us at 9:30 am on FridayDec [address] Verdugo -It is VERY important you follow up with Oncology Dr. Ireland and Surgery with Dr. Kwock to follow up on your pathology reports. -You have been prescribed antibiotics, please complete the course -Continue rest of medications as previously prescribed -Return to the ED or call EMS if symptoms return and/or worsen Follow up at [facility] for wounds to lower legs. [address] [place] [address]. Call [phone] to schedule appointment. Wound care to lower legs: shower daily with over the counter hibicleanse soap. Pat dry. Cover open wounds with adaptic gauze. Layer with abd pad or dry gauze fluffs and secure with kerlix roll from base of toes to 2 fingers below the knee. Repeat with rich wrap for light compression. Change daily and as needed for falling off. Elevate legs above heart level while sitting or laying down to help with swelling. If active bleeding occurs, apply tight dressing and return to MD or ER. ? Notify primary doctor or return to Emergency Room if any of the following: ? Fever above 100.6? F. ? Increased pain ? Increase swelling ? Red streaks around your wound ? Drainage becomes foul smelling or changes color ? The wound is larger or deeper ? The wound looks dried out or dark ? Bleeding that does not stop with holding pressure Prescriptions/Referrals Prescriptions/Med Rec: New midodrine 5 mg Tablet 10 mg PO Q6H PRN (Reason: SBP<100) 30 Days Qty: 60 0RF mirtazapine 15 mg Tablet 15 mg PO HS 30 Days Qty: 30 0RF doxycycline hyclate 100 mg Tablet 100 mg PO BID 9 Days Qty: 18 0RF sennosides [Senna Lax] 8.6 mg Tablet 8.6 mg PO QDAY 30 Days Qty: 30 0RF pantoprazole 40 mg Tablet,Delayed Release (Dr/Ec) 40 mg PO QDAY 30 Days Qty: 30 0RF nicotine 21 mg/24 hr Patch 24 Hour 21 mg top QDAY 7 Days Qty: 7 0RF amoxicillin-pot clavulanate 875-125 mg tablet 1 tab PO BID 9 Days Qty: 18 0RF thiamine HCl (vitamin B1) 250 mg tablet 250 mg PO QDAY Qty: 30 0RF hydrocodone-acetaminophen 10-325 mg tablet 1 tab PO Q6H MDD 4 PRN (Reason: pain) 7 Days Qty: 28 0RF Discontinued mupirocin 2 % ointment 1 applic topical BID Qty: 15 0RF ibuprofen 600 mg tablet 600 mg PO Q6H Qty: 30 0RF ferrous sulfate 325 mg (65 mg iron) Tablet,Delayed Release (Dr/Ec) 325 mg PO Q48H 30 Days Qty: 15 1RF Referrals: No Primary/Family,Physician [Primary Care Provider] - Patient/Caregiver Discharge Instructions Education Materials: Paracentesis Dc, Nutrition for Wound Healing, Wound Care Dc, ED Lymphedema Print Language: Tanzanian Stand Alone Forms: Palma Award Info., Patient Portal Info Letter Discharge Order Discharge Orders: Discharge (Routine); Ordered 12/22/24 Ordered By: Kaye Jiang Quality Discharge Quality Measures none
== END 2024-12-22 20:42 | disposition hospice, home (50) | DRG 579 ==
LOC: SERX 11:35 → SERHOLD 14:03 → S2NX 16:39
PROVIDERS: Emergency Medicine; Student in an Organized Health Care Education/Training Program; Surgery; Admitting Provider Internal Medicine; Emergency Provider Emergency Medicine; Visit Provider Internal Medicine
PROC: (CPT 38500; principal; 2024-12-21 12:30)
DX: L03.115 Cellulitis of right lower limb (principal); E43 Unspecified severe protein-calorie malnutrition; R64 Cachexia; E87.1 Hypo-osmolality and hyponatremia; E87.20 Acidosis, unspecified; N17.9 Acute kidney failure, unspecified; R18.0 Malignant ascites; L03.116 Cellulitis of left lower limb; R59.0 Localized enlarged lymph nodes; Z68.21 Body mass index [BMI] 21.0-21.9, adult; R13.10 Dysphagia, unspecified; F17.210 Nicotine dependence, cigarettes, uncomplicated; B19.20 Unspecified viral hepatitis C without hepatic coma; E86.0 Dehydration; E86.1 Hypovolemia; Z63.8 Other specified problems related to primary support group; E83.42 Hypomagnesemia; R74.01 Elevation of levels of liver transaminase levels; R33.9 Retention of urine, unspecified; F19.10 Other psychoactive substance abuse, uncomplicated; E87.8 Other disorders of electrolyte and fluid balance, not elsewhere classified; Z66 Do not resuscitate; Z79.899 Other long term (current) drug therapy
CPT/HCPCS: 36415; 36600; 70470; 70491; 71260; 74177; 80053; 80061; 80069; 80307; 81001; 82042; 82150; 82803; 82945; 83605; 83615; 83690; 83735; 84100; 84157; 84439; 84443; 85025; 85610; 85730; 87040; 87070; 87075; 87081; 87205; 87811; 89051; 92610; 93005; 96361; 96374; 96375; 97162; 99285; A4217; A4649; C1729; J1644; J2250; J2270; J2405; J2470; J2543; J2704; J3010; J3411; J3475; J3490; J7030; J7050; J7120; P9047; Q9967; Q9968; A9270

== ENCOUNTER 2024-12-27 13:21 | Emergency (ER) | payer OTHER, MEDICAID, SELFPAY ==
[2024-12-27 13:35] VITALS: PULSE 58; O2SAT 98; BMI 19.3
--- NOTE | 2024-12-27 13:44 | PC.NURSE ---
CARINA FROM HOME FOR DISTENDED ABDOMEN AND DISCOMFORT. PROVIDER WANTS HER TAPPED, STATES SHE HAS TO BE TAPPED WEEKLY, AND WOULD LIKE A PORT PLACED TO BE ABLE TO DRAIN HER OUT PATIENT PT IS ON HOSPICE. PRIOR TO COMING IN PT WAS MEDICATED WITH MORPHINE AND ZOFRAN IM. PT STATES SHE DOES NOT AMBULATED SHE IS BEDREST ONLY AT THIS TIME. PT ON 3L O2 VIA NC AT BASELINE. VSS ON TELE
[2024-12-27 13:45] VITALS: BP 112/74; PULSE 93; RESP 18; TEMP 36.6; O2SAT 97
--- NOTE | 2024-12-27 13:57 | XR_ITS ---
Examination: Ultrasound-guided paracentesis Abdominal sonogram limited Date and time of exam: December 27, 2024 1419 hours INDICATIONS: Cirrhosis, increasing ascites and abdominal distention this week Informed consent provided. A timeout was completed verifying correct patient, procedure, site, positioning, and special adequate movement if applicable. Technique: Multiple sonographic images of the abdomen have been obtained. Appropriate area for paracentesis was marked. Local anesthesia is obtained with 1% lidocaine. Yueh catheter is successfully introduced. Findings: Abdominal sonographic images demonstrate sufficient ascitic fluid for paracentesis. After placing the Yueh catheter, 2650 cc of fluid were successfully removed. During and after completion of the procedure the patient appear in satisfactory and stable condition with no complications observed. Estimated blood loss 0 cc Impression: Abdominal ascites Successful ultrasound-guided paracentesis as described above
--- NOTE | 2024-12-27 14:00 | PC.NURSE ---
UNABLE TO GET LINE AT THIS TIME, WILL ASK FELLOW RN.
[2024-12-27 14:50] LABS: Basophils # (Auto) 0.0 Thou/mm3 (0.0-0.2); Basophils % (Auto) 0 % (0-2.5); Eosinophils # (Auto) 0.0 Thou/mm3 (0.0-0.5); Eosinophils % (Auto) 0 % (0-10); Hematocrit 40.6 % (36.0-46.0); Hemoglobin 13.2 g/dL (12.0-16.0); Immature Granulocytes Auto 0.05 Thou/mm3 (0.00-0.00); Lymphocytes # (Auto) 0.4 Thou/mm3 (1.0-4.8); Lymphocytes % (Auto) 4 % (10-50); Mean Corpuscular HGB Conc 32.5 g/dl (31.0-37.0); Mean Corpuscular Hemoglobin 26.7 pg (25.0-35.0); Mean Corpuscular Volume 82 fL (80-100); Monocytes # (Auto) 0.8 Thou/mm3 (0.0-0.8); Monocytes % (Auto) 8 % (0-12); Neutrophils # (Auto) 8.9 Thou/mm3 (1.8-7.7); Neutrophils % (Auto) 88 % (37-80); Nucleated Red Blood Cell # 0.00 Thou/mm3 (0.00-0.00); Nucleated Red Blood Cell % 0 /100 WBC (0); Platelet Count 153 Thou/mm3 (140-440); RDW Standard Deviation 55.4 fL (36.4-46.3); Red Blood Count 4.95 Miln/mm3 (4.00-5.20); White Blood Count 10.1 Thou/mm3 (3.6-11.0)
[2024-12-27 15:05] LABS: Alanine Aminotransferase 22 U/L (10-49); Albumin, Serum 2.4 gm/dL (3.4-4.8); Albumin/Globulin Ratio 0.7 (1.2-2.2); Alkaline Phosphatase 145 U/L (46-116); Anion Gap 10 (7-16); Aspartate Amino Transferase 66 U/L (0-34); BUN/Creatinine Ratio 52 Ratio (12-20); Bilirubin,Total 0.6 mg/dL (0.3-1.2); Blood Urea Nitrogen 26 mg/dL (9-23); Calcium 8.5 mg/dL (8.3-10.6); Calcium (Corrected) 9.8 mg/dL (8.5-10.1); Carbon Dioxide 22.4 mMol/L (20.0-31.0); Chloride 95 mMol/L (98-107); Creatinine (Component) 0.5 mg/dL (0.6-1.3); Estimated Creatinine Clearance 100.2 mL/min (>60); Globulin 3.4 gm/dL (2.3-3.5); Glucose 102 mg/dL (74-106); Lipase 40 U/L (12-53); Osmolality,Calculated 259 (275-295); Potassium 5.0 mMol/L (3.4-5.1); Sodium 127 mMol/L (136-145); Total Protein 5.8 gm/dL (5.7-8.2); eGFR > 60 See Note
[2024-12-27 16:45] VITALS: BP 109/74; PULSE 89; RESP 15; TEMP 36.4; O2SAT 98
--- NOTE | 2024-12-27 17:34 | PD.EDABDPN ---
ED Abdominal Pain RME/HPI General Chief Complaint: General Adult/Misc Complain Stated complaint: ABD PAIN Time seen by provider: 12/27/24 13:31 Arrival date/time: 12/27/24 13:21 Limitations: no limitations RME / HPI RME / HPI narrative: Mimi Asif is 63 yr female with PMH of pancreatitis, history of alcohol use, hepatitis C, and polysubstance drug use disorder who presented to ED today due to worsening abdominal pain. She is currently on hospice. She was sent here from her living care facility to consider placement of a port for future ascites drainage. There is no fevers or chills. No other acute complaints. Related Data Previous Rx's ?Medication ?Instructions ?Recorded amoxicillin 875 mg-potassium 1 tab PO BID 9 days #18 tabs 12/22/24 clavulanate 125 mg tablet doxycycline hyclate 100 mg tablet 100 mg PO BID 9 days #18 tabs 12/22/24 hydrocodone 10 mg-acetaminophen 1 tab PO Q6H PRN pain 7 days #28 12/22/24 325 mg tablet tabs midodrine 5 mg tablet 10 mg (2 x 5 mg) PO Q6H PRN 12/22/24 SBP<100 30 days #60 tabs mirtazapine 15 mg tablet 15 mg PO HS 30 days #30 tabs 12/22/24 nicotine 21 mg/24 hr daily 21 mg top QDAY 7 days #7 ea 12/22/24 transdermal patch pantoprazole 40 mg tablet,delayed 40 mg PO QDAY 30 days #30 tabs 12/22/24 release sennosides 8.6 mg tablet (Senna 8.6 mg PO QDAY 30 days #30 tabs 12/22/24 Lax) thiamine HCl (vitamin B1) 250 mg 250 mg PO QDAY #30 tabs 12/22/24 tablet Allergies Allergy/AdvReac Type Severity Reaction Status Date / Time No Known Allergies Allergy Verified 12/27/24 13:41 Review of Systems Review of Systems Systems Reviewed: All systems reviewed, normal except as documented ED Exam General Limitations: Present no limitations General appearance: Present alert and other (Cachectic) Head Head exam: Present atraumatic Eye Eye exam: Present normal appearance, PERRL and EOMI ENT ENT exam: Present normal exam, normal oropharynx and mucous membranes moist Neck Neck exam: Present normal inspection, full ROM and trachea midline Chest Chest inspection: Present normal inspection and symmetric chest wall rise Respiratory Respiratory exam: Present normal lung sounds bilaterally Cardiovascular Cardiovascular exam: Present regular rate, normal rhythm and normal heart sounds Abdominal Exam Abdominal exam: Present soft, distention and tenderness; Absent guarding, rebound or rigidity Neurological Exam Neurological exam: Present alert Psychiatric Psychiatric exam: Present normal affect Skin Skin exam: Present warm, dry, intact and normal color Course Quality Measures none Orders Category Date Time Status US paracentesis abd w/image Stat Exams 12/27/24 13:57 Completed CBC Stat Lab 12/27/24 14:20 Completed CMP [Comprehensive Metabolic Panel] Stat Lab 12/27/24 14:20 Completed Lipase Stat Lab 12/27/24 14:20 Completed Albumin Human 25% Ivpb [Albuminar-25 Ivpb] Med 12/27/24 17:36 Discontinued 12.5 gm in 50 ml IV X1 HYDROmorphone INJ [Dilaudid Inj] Med 12/27/24 17:27 Discontinued 1 mg IM X1 ONE HYDROmorphone INJ [Dilaudid Inj] Med 12/27/24 13:48 Discontinued 1 mg IVP X1 ONE Lidocaine 1% Pf 30 ml [Xylocaine 1% Pf 30 ml] Med 12/27/24 14:27 Discontinued 30 ml .ROUTE .STK-MED ONE NALOXONE INJ (Syringe) [Narcan Inj (Syringe)] Med 12/27/24 14:11 Discontinued 4 mg .ROUTE .STK-MED ONE Ondansetron Inj [Zofran Inj] Med 12/27/24 14:11 Discontinued 4 mg .ROUTE .STK-MED ONE Sodium Chloride 0.9% 1000 ml [Ns] 1,000 ml Med 12/27/24 17:36 Discontinued IV 999 mls/hr Vital Signs Vital signs: Vital Signs Temperature 97.8 F 12/27/24 13:45 Pulse Rate 93 12/27/24 13:45 Respiratory Rate 18 12/27/24 13:45 Blood Pressure 112/74 12/27/24 13:45 Pulse Oximetry (%) 97 12/27/24 13:45 Oxygen Delivery Method Nasal Cannula 12/27/24 13:45 Oxygen Flow Rate 3 12/27/24 13:45 Abdominal Pain MDM MDM Narrative MDM Narrative:: Mimi Asif is 63 yr female with PMH of pancreatitis, history of alcohol use, hepatitis C, and polysubstance drug use disorder who presented to ED today due to worsening abdominal pain. She is currently on hospice. She was sent here from her living care facility to consider placement of a port for future ascites drainage. There is no fevers or chills. No other acute complaints. On exam, patient is cachectic appearing. Vital signs are stable. She has abdominal distention. Her CBC reveals no leukocytosis or anemia. Metabolic panel reveals hyponatremia at 127, albumin is 2.4 g/dL. A saline bolus was requested in addition to albumin replacement. Paracentesis was performed by interventional radiology. I did speak with our interventional radiologist, unfortunately they are unable to place a port for ascites today. This was discussed with her vocational case manager at her living care facility. They will attempt to schedule her as an outpatient to have this performed. We may return here for future consideration for port placement as needed. Patient data External records reviewed:: [facility] previous records Clinical information provided by:: patient and family Social determinants that could affect healthcare access:: none Patient has the following chronic illnesses:: Ascites, liver failure How is presenting disease/condition affected by chronic disease/condition?: uneffected by Evaluation data The following diagnostics were reviewed and interpreted by me:: lab results and radiology exam(s) Lab and/or radiology exams considered but not ordered:: n/a Interpretation Summary: Ascites Medications / Prescriptions Medications or Prescriptions considered but not ordered:: n/a Medication administrations:: Medication Administration History Discontinued Medications Hydromorphone HCl (Hydromorphone Inj 2 Mg/Ml Vial) 1 mg IVP X1 ONE Stop: 12/27/24 13:49 Last Admin: 12/27/24 17:36 Dose: Not Given Documented By: DO Non-Admin Reason: Cancelled by Provider Hydromorphone HCl (Hydromorphone Inj 2 Mg/Ml Vial) 1 mg IM X1 ONE Stop: 12/27/24 17:28 Last Admin: 12/27/24 17:43 Dose: 1 mg Documented By: STACY Sodium Chloride (Ns) 1,000 mls @ 999 mls/hr IV .Q1H1M ONE Stop: 12/27/24 18:36 Last Infusion: 12/27/24 19:17 Dose: Infused Documented By: Admin: 12/27/24 18:12 Dose: 999 mls/hr Documented By: TM Albumin Human (Albuminar-25 Ivpb) 12.5 gm in 50 mls @ 50 mls/hr IV X1 ONE Stop: 12/27/24 18:35 Last Infusion: 12/27/24 19:17 Dose: Infused Documented By: Admin: 12/27/24 18:11 Dose: 50 mls/hr Documented By: TM Lidocaine HCl (Lidocaine Inj Pf 1% 30 Ml Vial) Confirm Administered Dose 30 ml .ROUTE .STK-MED ONE Stop: 12/27/24 14:28 Last Admin: 12/27/24 17:26 Dose: Not Given Documented By: TM Non-Admin Reason: Override Medication Naloxone HCl (Naloxone Inj 1 Mg/Ml Syringe 2 Ml) Confirm Administered Dose 4 mg .ROUTE .STK-MED ONE Stop: 12/27/24 14:12 Last Admin: 12/27/24 17:26 Dose: Not Given Documented By: TM Non-Admin Reason: Override Medication Ondansetron HCl (Ondansetron Inj 2 Mg/Ml Inj 2 Ml) Confirm Administered Dose 4 mg .ROUTE .ST-MED ONE Stop: 12/27/24 14:12 Last Admin: 12/27/24 17:26 Dose: Not Given Documented By: TM Non-Admin Reason: Override Medication See above Consultations Consultation(s) initiated? (list below): No Diagnosis Differential diagnosis abdominal pain: gastroenteritis, pancreatitis and small bowel obstruction Most likely diagnosis given after review of the tests above:: Ascites Admission Indicated Admission indicated?: not indicated Admission Request Was there a request for admission?: No Disposition Plan Disposition Plan: Discharge Discharge Attestation Discharge Attestation: The patient and all family members were given an opportunity to ask questions and understood the discharge instructions. Discharge instructions specifically effects, indications for sooner follow up or return to the emergency department, and the expected course of current diagnosis. Patient condition: Stable Discharge Plan Plan Patient Disposition: HOME (Self Care) Patient condition on transfer: Stable Prescriptions/Referrals Prescriptions/Med Rec: No Action midodrine 5 mg Tablet 10 mg PO Q6H PRN (Reason: SBP<100) 30 Days Qty: 60 0RF mirtazapine 15 mg Tablet 15 mg PO HS 30 Days Qty: 30 0RF doxycycline hyclate 100 mg Tablet 100 mg PO BID 9 Days Qty: 18 0RF sennosides [Senna Lax] 8.6 mg Tablet 8.6 mg PO QDAY 30 Days Qty: 30 0RF pantoprazole 40 mg Tablet,Delayed Release (Dr/Ec) 40 mg PO QDAY 30 Days Qty: 30 0RF nicotine 21 mg/24 hr Patch 24 Hour 21 mg top QDAY 7 Days Qty: 7 0RF amoxicillin-pot clavulanate 875-125 mg tablet 1 tab PO BID 9 Days Qty: 18 0RF thiamine HCl (vitamin B1) 250 mg tablet 250 mg PO QDAY Qty: 30 0RF hydrocodone-acetaminophen 10-325 mg tablet 1 tab PO Q6H MDD 4 PRN (Reason: pain) 7 Days Qty: 28 0RF Problem List Clinical Impression: Ascites Patient/Caregiver Discharge Instructions Education Materials: Paracentesis Dc Additional Instructions: - You may benefit from placing a port in the future for future drainage. Please schedule an outpatient visit for this. - Please return to the emergency room at anytime for worsening changes including pain or fevers. Print Language: Cambodian Stand Alone Forms: [facility] Award Info., Patient Portal Info Letter
[2024-12-27] MEDS: HYDROmorphone INJ 2 MG/ML VIAL 1 MG IM (17:43)
[2024-12-27] MEDS: ALBUMIN HUMAN 25% IVPB 12.5 GM/50 ML BTL IV (18:11)
[2024-12-27] MEDS: SODIUM CHLORIDE 0.9% 1000 ML 1,000 ML 999 ML IV (18:12)
[2024-12-27 18:33] VITALS: BP 100/77; PULSE 81; TEMP 36.4; O2SAT 100
[2024-12-27 19:21] VITALS: BP 119/74; PULSE 61; TEMP 36.6; O2SAT 99
--- NOTE | 2024-12-27 20:59 | PC.NURSE ---
CALLED [facility] FOR TRANSPORTATION HOME SPOKE JINA SALESPERSON RECREATIONAL VEHICLES TIME AT 2200.
[2024-12-27 21:10] VITALS: BP 115/74; PULSE 85; RESP 14; TEMP 36.7; O2SAT 99
== END 2024-12-27 21:18 | disposition home or self-care (01) ==
PROVIDERS: Physician Assistant Medical; Emergency Provider Emergency Medicine
DX: R18.8 Other ascites (principal)
CPT/HCPCS: 49083; 36415; 80053; 83690; 85025; 96365; 96372; 99283; C1729; J1171; J7030; P9047